=== PATIENT | female | born 1950 | race Caucasian/White ===

== ENCOUNTER 2023-09-25 08:53 | Inpatient (IN) ==
[2023-09-25] MEDS ORDERED: dilTIAZem HCl 5 MG/ML 5 ML VIAL IV STA ×2 (09:34→10:19)
[2023-09-25] MEDS ORDERED: SODIUM CHLORIDE 0.9% 1,000 ML IV STA (09:34)
--- NOTE | 2023-09-25 09:53 | Emergency Department Note ---
Impression & Plan Atrial flutter with rapid ventricular response ED Provider Note Diagnosis: Atrial flutter Disposition: Admission CHIEF COMPLAINT: Abnormal EKG outpatient HPI: Patient is a 72-year-old female presenting with EKG from outpatient with new a flutter. Patient states she has not felt any symptoms denies chest pain shortness of breath palpitations headache or lightheadedness. Patient was going to get an injection due to her sciatica and they found her heart rate to be elevated. Patient had an EKG performed which showed a flutter. Patient asymptomatic upon arrival in the emergency room. Patient's heart rate on presentation 130 to 150 bpm. PAST MEDICAL HISTORY: See Below PAST SURGICAL HISTORY: See Below SOCIAL HISTORY: See Below HOME MEDICATIONS: See Below ALLERGIES: See Below VITALS: See Below PHYSICAL EXAMINATION: GENERAL: Well appearing, well nourished, NAD, non-toxic. EYE EXAM: Normal conjunctiva. OROPHARYNX: Moist mucus membranes. Grossly normal dentition. NECK: Supple, LUNGS: Clear to auscultation. Normal chest wall mechanics. HEART: Tachycardia ABDOMEN: Abdomen soft, non-tender, normo-active bowel sounds, no masses, no rebound or guarding BACK: No CVA TTP. SKIN: No rashes and no bruising. UPPER EXTREMITIES: Upper extremities are grossly normal LOWER EXTREMITIES: Grossly normal, no edema. NEURO EXAM: A&O x3,, normal speech, moves all 4 extremities PSYCH: Cooperative MEDICAL DECISION MAKING: Reviewed external documents: H&P October 2018 for sleep study History obtained from: Patient ER Course: Patient is a 72-year-old female presenting with a flutter with elevated heart rate. Patient was going for an outpatient procedure for injection due to sciatica and found to have abnormal vital signs for the staff. An EKG was performed at their facility which showed a flutter with rapid rate. Patient asymptomatic. Patient denies any history of A-fib or a flutter previously. Patient denies any chest pain shortness of breath palpitations headache lightheadedness. Patient given Cardizem bolus x2 and then started on drip. Patient is heart rate controlled between 110 115 bpm. Patient mid to hospital service further treatment evaluation Labs (independently interpreted) are significant for: Troponin negative no electrolyte abnormalities Imaging results (independently interpreted): Chest x-ray clear EKG interpretation (independently interpreted): Atrial flutter, no ST segment elevation or depression normal intervals Medications given: Cardizem bolus x2, Cardizem drip Consultants: Hospitalist, discussed patient's new diagnosis of a flutter with RVR. Except patient further treatment and evaluation. Triage Nursing notes reviewed and agree them. Vital Signs: reviewed and remarkable for: no significant abnormalities critical care: 40 minutes this time does not include any time for procedures. Time includes reviewing prior notes, at bedside, reviewing current data. Past Med/Surg History Medical History Barretts esophagus Fibromyalgia HTN (hypertension) Dyslipidemia Mitral regurgitation Mitral valve prolapse Bileaflet CAD (coronary artery disease) Nonobstructive per cardiac cath 2015 Surgical History History of partial hysterectomy History of cholecystectomy Social History Smoking Status: Former smoker Preferred Language: Indonesian Feels Safe at Home: Yes Allergies Allergies Allergy/AdvReac Type Severity Reaction Status Date / Time erythromycin base Allergy Severe Gastrointestinal Unverified 09/25/23 11:12 Upset ezetimibe [From Zetia] Allergy Severe Leg Cramps Unverified 09/25/23 11:12 [id number] Reductase Allergy Severe Gastrointestinal Unverified 09/25/23 11:12 Inhibitor Upset Sulfa (Sulfonamide Allergy Severe Gastrointestinal Unverified 09/25/23 11:12 Antibiotics) Upset adhesive tape Allergy Unknown Unknown Unverified 09/25/23 11:12 omeprazole Allergy Unknown Unknown Unverified 09/25/23 11:12 orphenadrine Allergy Unknown Unconscious Unverified 09/25/23 11:12 gabapentin AdvReac Severe Vertigo/Diz Unverified 09/25/23 11:12 ziness NSAIDS (Non-Steroidal AdvReac Severe Rectal Unverified 09/25/23 11:12 Anti-Inflamma Bleeding Home Meds Home Medications Medication Instructions Recorded Confirmed acetaminophen 650 mg 650 mg PO Q12H 09/25/23 09/25/23 tablet,extended release albuterol sulfate 90 mcg/actuation 1 - 2 puff inhalation QID PRN 09/25/23 09/25/23 aerosol inhaler wheezing/SOB amitriptyline 25 mg tablet 50 mg PO HS 09/25/23 09/25/23 aspirin 81 mg tablet 81 mg PO QAM 09/25/23 09/25/23 fluticasone 250 mcg-salmeterol 50 1 inh inhalation BID PRN Shortness 09/25/23 09/25/23 mcg/dose blistr powdr for Of Breath inhalation furosemide 20 mg tablet 20 mg PO DAILY PRN Edema 09/25/23 09/25/23 levocetirizine 5 mg tablet (Xyzal) 5 mg PO HS 09/25/23 09/25/23 meclizine 25 mg tablet 25 mg PO TID PRN Dizziness Or 09/25/23 09/25/23 Vertigo metoprolol succinate 25 mg 25 mg PO QAM 09/25/23 09/25/23 tablet,extended release 24 hr rabeprazole 20 mg tablet,delayed 20 mg PO BID 09/25/23 09/25/23 release simethicone 80 mg chewable tablet 80 mg PO BID PRN Gastric Reflux 09/25/23 09/25/23 Results & Data (ED) Vital Signs Vital Signs - 24 hr 09/25/23 08:54 09/25/23 09:03 09/25/23 09:30 Temperature 36.7 C Temperature Source Temporal Artery Scan Pulse Rate 90 Pulse Rate [Apical] 154 H Pulse Rate from SpO2 Sensor Pulse Rhythm Pulse Rhythm [Apical] Irregular Pulse Strength [Apical] Normal Respiratory Rate 18 22 Respiratory Effort / Characteristics Non-Labored Spontaneous Non-Labored Spontaneous Respiratory Depth Normal Normal Respiratory Pattern Regular Regular Blood Pressure Blood Pressure [Left Arm] 154/107 H Blood Pressure Mean Blood Pressure Mean [Left Arm] 122 Blood Pressure Position [Left Arm] Sitting Pulse Oximetry 97 97 97 Oxygen Delivery Method Room Air Room Air Room Air Sepsis Recent Fever Within 48 Hours No Sepsis New/Unexplained Change in Mental Status No Sepsis Action Taken by Nursing No Action Required 09/25/23 09:34 09/25/23 09:34 09/25/23 09:45 Temperature Temperature Source Pulse Rate 154 H 155 H 148 H Pulse Rate [Apical] Pulse Rate from SpO2 Sensor 125 H 134 H Pulse Rhythm Irregular Pulse Rhythm [Apical] Pulse Strength [Apical] Respiratory Rate 22 17 22 Respiratory Effort / Characteristics Respiratory Depth Respiratory Pattern Blood Pressure Blood Pressure [Left Arm] Blood Pressure Mean Blood Pressure Mean [Left Arm] Blood Pressure Position [Left Arm] Pulse Oximetry 97 97 94 Oxygen Delivery Method Room Air Sepsis Recent Fever Within 48 Hours Sepsis New/Unexplained Change in Mental Status Sepsis Action Taken by Nursing 09/25/23 09:55 09/25/23 09:55 09/25/23 10:00 Temperature Temperature Source Pulse Rate 148 H 119 H Pulse Rate [Apical] Pulse Rate from SpO2 Sensor 134 H 133 H Pulse Rhythm Pulse Rhythm [Apical] Pulse Strength [Apical] Respiratory Rate 16 20 Respiratory Effort / Characteristics Respiratory Depth Respiratory Pattern Blood Pressure 140/95 Blood Pressure [Left Arm] Blood Pressure Mean 106 Blood Pressure Mean [Left Arm] Blood Pressure Position [Left Arm] Pulse Oximetry 93 94 Oxygen Delivery Method Sepsis Recent Fever Within 48 Hours Sepsis New/Unexplained Change in Mental Status Sepsis Action Taken by Nursing 09/25/23 10:01 09/25/23 10:01 09/25/23 10:15 Temperature Temperature Source Pulse Rate 139 H 153 H Pulse Rate [Apical] Pulse Rate from SpO2 Sensor 124 H 154 H Pulse Rhythm Pulse Rhythm [Apical] Pulse Strength [Apical] Respiratory Rate 20 18 Respiratory Effort / Characteristics Respiratory Depth Respiratory Pattern Blood Pressure 137/96 Blood Pressure [Left Arm] Blood Pressure Mean 111 Blood Pressure Mean [Left Arm] Blood Pressure Position [Left Arm] Pulse Oximetry 96 95 Oxygen Delivery Method Sepsis Recent Fever Within 48 Hours Sepsis New/Unexplained Change in Mental Status Sepsis Action Taken by Nursing 09/25/23 10:18 09/25/23 10:28 09/25/23 10:28 Temperature Temperature Source Pulse Rate 153 H Pulse Rate [Apical] Pulse Rate from SpO2 Sensor 144 H Pulse Rhythm Pulse Rhythm [Apical] Pulse Strength [Apical] Respiratory Rate 18 Respiratory Effort / Characteristics Respiratory Depth Respiratory Pattern Blood Pressure 127/88 Blood Pressure [Left Arm] Blood Pressure Mean 106 Blood Pressure Mean [Left Arm] Blood Pressure Position [Left Arm] Pulse Oximetry 92 Oxygen Delivery Method Sepsis Recent Fever Within 48 Hours Sepsis New/Unexplained Change in Mental Status Sepsis Action Taken by Nursing 09/25/23 10:30 09/25/23 10:31 09/25/23 10:31 Temperature Temperature Source Pulse Rate 150 H Pulse Rate [Apical] Pulse Rate from SpO2 Sensor 150 H Pulse Rhythm Pulse Rhythm [Apical] Pulse Strength [Apical] Respiratory Rate 16 Respiratory Effort / Characteristics Respiratory Depth Respiratory Pattern Blood Pressure 115/70 115/70 Blood Pressure [Left Arm] Blood Pressure Mean 98 98 Blood Pressure Mean [Left Arm] Blood Pressure Position [Left Arm] Pulse Oximetry 97 Oxygen Delivery Method Sepsis Recent Fever Within 48 Hours Sepsis New/Unexplained Change in Mental Status Sepsis Action Taken by Nursing 09/25/23 10:31 09/25/23 10:45 09/25/23 11:00 Temperature Temperature Source Pulse Rate 137 H 134 H Pulse Rate [Apical] 144 H Pulse Rate from SpO2 Sensor 149 H 123 H Pulse Rhythm Pulse Rhythm [Apical] Irregular Pulse Strength [Apical] Normal Respiratory Rate 21 16 18 Respiratory Effort / Characteristics Non-Labored Spontaneous Respiratory Depth Normal Respiratory Pattern Regular Blood Pressure Blood Pressure [Left Arm] Blood Pressure Mean Blood Pressure Mean [Left Arm] Blood Pressure Position [Left Arm] Pulse Oximetry 96 95 94 Oxygen Delivery Method Room Air Sepsis Recent Fever Within 48 Hours Sepsis New/Unexplained Change in Mental Status Sepsis Action Taken by Nursing 09/25/23 11:00 09/25/23 11:00 09/25/23 11:15 Temperature Temperature Source Pulse Rate 148 H 111 H Pulse Rate [Apical] Pulse Rate from SpO2 Sensor 133 H 126 H Pulse Rhythm Pulse Rhythm [Apical] Pulse Strength [Apical] Respiratory Rate 21 20 Respiratory Effort / Characteristics Respiratory Depth Respiratory Pattern Blood Pressure 132/83 Blood Pressure [Left Arm] Blood Pressure Mean 90 Blood Pressure Mean [Left Arm] Blood Pressure Position [Left Arm] Pulse Oximetry 95 96 Oxygen Delivery Method Sepsis Recent Fever Within 48 Hours Sepsis New/Unexplained Change in Mental Status Sepsis Action Taken by Nursing 09/25/23 11:30 09/25/23 11:30 09/25/23 11:45 Temperature Temperature Source Pulse Rate 112 H 121 H Pulse Rate [Apical] Pulse Rate from SpO2 Sensor 140 H 128 H Pulse Rhythm Pulse Rhythm [Apical] Pulse Strength [Apical] Respiratory Rate 17 18 Respiratory Effort / Characteristics Respiratory Depth Respiratory Pattern Blood Pressure 141/67 H Blood Pressure [Left Arm] Blood Pressure Mean 93 Blood Pressure Mean [Left Arm] Blood Pressure Position [Left Arm] Pulse Oximetry 90 95 Oxygen Delivery Method Sepsis Recent Fever Within 48 Hours Sepsis New/Unexplained Change in Mental Status Sepsis Action Taken by Nursing Laboratory Data 09/25/23 09:43 09/25/23 09:43 Lab Results 09/25/23 09/25/23 Range/Units 09:43 10:30 WBC 7.09 (4.8-10.8) K/ul RBC 4.14 L (4.20-5.40) M/uL Hgb 13.8 (12.0-16.0) g/dl Hct 40.1 (37.0-47.0) % MCV 96.9 (80.0-100.0) fL MCH 33.3 (25.0-34.0) pg MCHC 34.4 (32.0-36.0) g/dL RDW Std Deviation 44.6 (36.4-46.3) fL RDW Coeff of Nicolas 12.5 (11.5-14.5) % Plt Count 246 (130-400) K/uL MPV 8.9 L (9.4-12.4) fL Immature Gran % (Auto) 0.3 % Neut % (Auto) 62.8 % Lymph % (Auto) 25.1 % Hernando % (Auto) 10.2 % Eos % (Auto) 0.8 % Baso % (Auto) 0.8 % Neut # (Auto) 4.45 (1.40-6.50) K/uL Lymph # (Auto) 1.78 (1.20-3.40) K/uL Hernando # (Auto) 0.72 H (0.11-0.59) K/uL Eos # (Auto) 0.06 (0.00-0.50) K/uL Baso # (Auto) 0.06 (0.00-0.20) K/uL Immature Gran # (Auto) 0.02 (0.01-0.20) K/uL PT Cancelled 11.9 INR Cancelled 1.1 APTT Cancelled 24.1 PTT Ratio Cancelled 0.9 Sodium 138 (136-145) mmol/L Potassium 4.1 (3.5-5.1) mmol/L Chloride 104 (98-107) mmol/L Carbon Dioxide 23 (21-32) mmol/L Anion Gap 11 (3-11) BUN 17 (6-23) mg/dl Creatinine 1.00 (0.6-1.2) mg/dl Est Cr Clr Drug Dosing 47.4 ml/min Est GFR ( Amer) 65.6 ml/min Est GFR (Non-Af Amer) 56.6 ml/min BUN/Creatinine Ratio 17.0 (10-20) Glucose 157 H (70-99(Fasting)) mg/dl Calcium 9.5 (8.6-10.3) mg/dl Magnesium 1.8 (1.7-2.4) mg/dl Total Bilirubin 0.6 (0.2-1.0) mg/dl AST 13 (13-39) U/L ALT 12 (7-52) U/L Alkaline Phosphatase 84 (34-104) U/L Troponin I High Sens 5.4 (0-14) pg/ml Total Protein 6.8 (6.0-8.3) gm/dl Albumin 4.1 (3.4-5.0) gm/dl Globulin 2.7 (2.5-4.0) gm/dl Albumin/Globulin Ratio 1.5 (0.9-2) Lipase 11 (11-82) U/L TSH 1.366 (0.300-4.500) uIu/ml Administered Medications Diltiazem HCl 125 mg/ Dextrose 125 mls @ 5 mls/hr IV .Q24H [facility]; Protocol Stop: 10/25/23 10:29 Last Titration: 09/25/23 15:11 Dose: 10 mg/hr, 10 mls/hr Documented By: KIMBERLYN Co-signed By: RAHEL Admin: 09/25/23 11:00 Dose: 5 mg/hr, 5 mls/hr Documented By: KIMBERLYN Co-signed By: KENYATTA Heparin Sodium/Dextrose (Heparin Sodium/Dextrose) 25,000 units in 500 mls @ 21 mls/hr IV .[id number] [facility]; Protocol Stop: 10/25/23 13:14 Last Admin: 09/25/23 15:07 Dose: 1,050 units/hr, 21 mls/hr Documented By: KIMBERLYN Co-signed By: RAHEL Metoprolol Tartrate (Metoprolol Tartrate 25 Mg Tab) 25 mg PO Q6H KIMBERLY Stop: 10/25/23 13:59 Last Admin: 09/25/23 15:03 Dose: 25 mg Documented By: KIMBERLYN Discontinued Medications Diltiazem HCl (Diltiazem Hcl 5 Mg/Ml 5 Ml Vial) 15 mg IV NOW STA Stop: 09/25/23 09:35 Last Admin: 09/25/23 09:56 Dose: 15 mg Documented By: KIMBERLYN Co-signed By: YAKELIN Diltiazem HCl (Diltiazem Hcl 5 Mg/Ml 5 Ml Vial) 15 mg IV NOW STA Stop: 09/25/23 10:20 Last Admin: 09/25/23 10:28 Dose: 15 mg Documented By: KIMBERLYN Co-signed By: LARA Heparin Sodium (Porcine) (Heparin Sod (Porcine) 1000 Unit/Ml) 5,000 units IV NOW ONE Stop: 09/25/23 14:15 Last Admin: 09/25/23 15:07 Dose: 5,000 units Documented By: KIMBERLYN Co-signed By: RAHEL Heparin Sodium/Dextrose (Heparin Iv Adult Wt-Based Standard With Bolus Protocol) 1 each IV NOW STA; Protocol Stop: 09/25/23 12:53 Last Admin: 09/25/23 15:10 Dose: 1 each Documented By: KIMBERLYN Sodium Chloride (Nss) 1,000 mls @ 999 mls/hr IV .Q1H1M STA Stop: 09/25/23 10:34 Last Infusion: 09/25/23 14:55 Dose: Infused Documented By: Admin: 09/25/23 09:56 Dose: 999 mls/hr Documented By: KIMBERLYN Miscellaneous (Stat Iv Infusion Titration Per Protocol) 1 each N/A NOW STA Stop: 09/25/23 10:20 Last Admin: 09/25/23 15:10 Dose: Not Given Documented By: KIMBERLYN Imaging Data Radiologist's Impression: Chest X-Ray 09/25/23 09:34 XR chest 1V portable CLINICAL HISTORY: Chest pain, nonspecific TECHNIQUE: Single frontal radiograph of the chest was obtained. Comparison: None available at the time of this dictation. FINDINGS: No lines and tubes are seen. The cardiomediastinal silhouette is normal. The lungs are clear. No evidence of pleural effusion or pneumothorax. IMPRESSION: No acute chest disease. ACT 112: Negative or not required by law. Electronically signed by: Allen Pitts M.D. 09/25/2023 10:23 AM Discharge Plan Visit Data Chief Complaint: Cardiac Assessment Stated Complaint: REF BY , CARDIAC ASSESSMENT ED Provider: Miki Ramírez Discharge Problem: Atrial flutter with rapid ventricular response Patient Disposition: Admitted As Inpatient Discharge Instructions Interventions: ED Discharge Assessment Last Done: 09/25/23 14:58
[2023-09-25 10:05] LABS: Basophils # (auto) 0.06 K/uL (0.00-0.20); Basophils % (auto) 0.8 %; Eosinophils # (auto) 0.06 K/uL (0.00-0.50); Eosinophils % (auto) 0.8 %; Hematocrit (blood only) 40.1 % (37.0-47.0); Hemoglobin 13.8 g/dl (12.0-16.0); Immature Granulocytes # (auto) 0.02 K/uL (0.01-0.20); Immature Granulocytes % (auto) 0.3 %; Lymphocytes # (auto) 1.78 K/uL (1.20-3.40); Lymphocytes % (auto) 25.1 %; Mean Corpuscular Hemoglobin 33.3 pg (25.0-34.0); Mean Corpuscular Hgb Conc 34.4 g/dL (32.0-36.0); Mean Corpuscular Volume 96.9 fL (80.0-100.0); Mean Platelet Volume 8.9 fL (9.4-12.4); Monocytes # (auto) 0.72 K/uL (0.11-0.59); Monocytes % (auto) 10.2 %; Neutrophils # (auto) 4.45 K/uL (1.40-6.50); Neutrophils % (auto) 62.8 %; Platelet Count 246 K/uL (130-400); RDW Coefficient of Variation 12.5 % (11.5-14.5); RDW Standard Deviation 44.6 fL (36.4-46.3); Red Blood Count 4.14 M/uL (4.20-5.40); White Blood Count 7.09 K/ul (4.8-10.8)
[2023-09-25] MEDS ORDERED: STAT IV Infusion **Titration per Protocol STA (10:19)
[2023-09-25 10:23] LABS: Albumin Globulin Ratio 1.5 (0.9-2); Albumin Level 4.1 gm/dl (3.4-5.0); Bilirubin,Total 0.6 mg/dl (0.2-1.0); Calcium 9.5 mg/dl (8.6-10.3); Creatinine Clr Calc Pharmacy 47.4 ml/min; Est GFR (African American) 65.6 ml/min; Est GFR (Non-African American) 56.6 ml/min; Globulin 2.7 gm/dl (2.5-4.0); Potassium 4.1 mmol/L (3.5-5.1); Total Protein 6.8 gm/dl (6.0-8.3)
--- NOTE | 2023-09-25 10:25 | XRay Report ---
XR chest 1V portable CLINICAL HISTORY: Chest pain, nonspecific TECHNIQUE: Single frontal radiograph of the chest was obtained. Comparison: None available at the time of this dictation. FINDINGS: No lines and tubes are seen. The cardiomediastinal silhouette is normal. The lungs are clear. No evid ence of pleural effusion or pneumothorax. IMPRESSION: No acute chest disease. ACT 112: Negative or not required by law. Electronically signed by: Allen Pitts M.D. 09/25/2023 10:23 AM
[2023-09-25 10:28] LABS: Troponin I High Sensitivity 5.4 pg/ml (0-14)
[2023-09-25] MEDS: dilTIAZem HCL 125 MG in DEXTROSE 5% 100 ML IV SCH (11:00)
[2023-09-25 11:22] LABS: INR 1.1 (0.9-1.1); Partial Thromboplastin Ratio 0.9; Partial Thromboplastin Time 24.1 Seconds (21.0-31.0); Prothrombin Time 11.9 Seconds (9.0-12.0)
[2023-09-25] MEDS ORDERED: Heparin IV Adult Wt-Based Standard WITH Bolus Protocol IV STA (12:52)
[2023-09-25] MEDS ORDERED: Heparin IV Adult Wt-Based Standard WITH Bolus Protocol IV SCH (13:30)
--- NOTE | 2023-09-25 13:59 | History & Physical Report ---
Date of Service September 25, 2023 Assessment & Plan (1) Atrial flutter with rapid ventricular response: (2) Mitral valve prolapse: (3) Mitral regurgitation: Plan: Admit to telemetry Patient presenting from [facility] for evaluation of tachycard ia. Patient was scheduled for L5-S1 epidural steroid injection today. Upon arrival to the ER, patient found to be in atrial flutter with RVR --no prior history of S/p diltiazem 15 mg IV bolus x 2 and started on drip in ED Hold home metoprolol succinate in favor of metoprolol tartrate 25 mg PO q6h for titration [id number] score 4 -- will start IV heparin with likely transition to oral anticoagulation K+ 4.1, check Mg+ and TSH. No signs of infection or other precipitating factors. Update echo Cardiology consult (4) CAD (coronary artery disease): Plan: History of nonobstructive CAD per cardiac cath 2016 Continue ASA and beta-bipin. Chart history of statin intolerance. (5) HTN (hypertension): Plan: Chronic, stable Metoprolol changes as above (6) Barretts esophagus: Plan: Continue PPI DVT PROPHYLAXIS On IV heparin Patient seen in collaboration with Dr. Summers. I spent a total of 75 minutes coordinating, documenting, and providing care for this patient excluding time spent in the performance of separately billed services. This included personally reviewing all current laboratories and imaging studies, medication reconciliation, outpatient chart review, and discussion with specialists. History of Present Illness Chief Complaint: Referred for elevated heart rate Primary Care Provider: Miladis Hightower MD 72-year-old female with PMH dyslipidemia, asthma, allergic rhinitis, HTN, mitral valve prolapse, IBS, Lundy's esophagus, GERD, fibromyalgia, and other problems listed below who presents to the ED from [facility] for evaluation of elevated heart rate. History obtained from the patient and review of outpatient PCP and cardiology records. Patient scheduled for L5-S1 epidural steroid injection. Upon presentation, patient was found to be significant tachycardic and was referred to the ED for further evaluation. Patient is asymptomatic. She denies chest pain, palpitations, shortness of breath. Reports ongoing low back pain with radiation into the left leg for the past few months. No lightheadedness, dizziness, diaphoresis, syncopal events. Reports chronic lower extremity edema for which she utilizes Lasix on a as needed basis. Typically takes Lasix only once every few months. Last dose was a few days ago. Lower extremity edema is at baseline. Denies orthopnea. No other recent illnesses, fevers, chills. She denies abdominal pain, nausea, vomiting, diarrhea. No urinary symptoms. In the ED, patient was found to be in atrial flutter with RVR. Patient received diltiazem 15 mg IV bolus x 2 and was placed on a drip. Patient was also given IVF. Labs and CXR unremarkable. Allergies Allergy/AdvReac Type Severity Reaction Status Date / Time erythromycin base Allergy Severe Gastrointestinal Unverified 09/25/23 11:12 Upset ezetimibe [From Zetia] Allergy Severe Leg Cramps Unverified 09/25/23 11:12 [id number] Reductase Allergy Severe Gastrointestinal Unverified 09/25/23 11:12 Inhibitor Upset Sulfa (Sulfonamide Allergy Severe Gastrointestinal Unverified 09/25/23 11:12 Antibiotics) Upset adhesive tape Allergy Unknown Unknown Unverified 09/25/23 11:12 omeprazole Allergy Unknown Unknown Unverified 09/25/23 11:12 orphenadrine Allergy Unknown Unconscious Unverified 09/25/23 11:12 gabapentin AdvReac Severe Vertigo/Diz Unverified 09/25/23 11:12 ziness NSAIDS (Non-Steroidal AdvReac Severe Rectal Unverified 09/25/23 11:12 Anti-Inflamma Bleeding Home Medications Medication Instructions Recorded Confirmed Type acetaminophen 650 mg 650 mg PO Q12H 09/25/23 09/25/23 History tablet,extended release albuterol sulfate 90 mcg/actuation 1 - 2 puff inhalation QID PRN 09/25/23 09/25/23 History aerosol inhaler wheezing/SOB amitriptyline 25 mg tablet 50 mg PO HS 09/25/23 09/25/23 History aspirin 81 mg tablet 81 mg PO QAM 09/25/23 09/25/23 History fluticasone 250 mcg-salmeterol 50 1 inh inhalation BID PRN Shortness 09/25/23 09/25/23 History mcg/dose blistr powdr for Of Breath inhalation furosemide 20 mg tablet 20 mg PO DAILY PRN Edema 09/25/23 09/25/23 History levocetirizine 5 mg tablet (Xyzal) 5 mg PO HS 09/25/23 09/25/23 History meclizine 25 mg tablet 25 mg PO TID PRN Dizziness Or 09/25/23 09/25/23 History Vertigo metoprolol succinate 25 mg 25 mg PO QAM 09/25/23 09/25/23 History tablet,extended release 24 hr rabeprazole 20 mg tablet,delayed 20 mg PO BID 09/25/23 09/25/23 History release simethicone 80 mg chewable tablet 80 mg PO BID PRN Gastric Reflux 09/25/23 09/25/23 History Past Med/Surg History Medical History Barretts esophagus Fibromyalgia HTN (hypertension) Dyslipidemia Mitral regurgitation Mitral valve prolapse Bileaflet CAD (coronary artery disease) Nonobstructive per cardiac cath 2016 Surgical History History of partial hysterectomy History of cholecystectomy Social History Smoking Status: Former smoker Preferred Language: Urdu Feels Safe at Home: Yes Physical Exam Constitutional: WD/WN, vitals as above no acute distress Eyes: PERRL, conjunctivae normal, anicteric sclerae ENMT: external ear and nose normal, oropharynx normal Respiratory: normal respiratory effort, lungs clear to auscultation Cardiovascular: Rate/Rhythm: regular rate and + irregularly irregular Vessels: normal peripheral pulses Extremities: + edema (Trace edema BLE) Gastrointestinal (Abdomen): normal bowel sounds, soft, nontender, no hepatosplenomegaly Musculoskeletal: no cyanosis or clubbing, extremities motor strength 5/5 Skin: no rashes, warm and dry Neurologic: PERRL, EOMI, accommodation nl, no face palsy, no dysarthria Psychiatric: A+Ox3, euthymic affect Results & Data Results & Data Vital Signs (Past 12 Hours) Vital Signs Temp Pulse Pulse Resp BP BP Pulse Ox 09/25/23 13:00 142 H 20 140/88 94 09/25/23 11:45 121 H 18 95 09/25/23 11:30 112 H 17 90 09/25/23 11:30 141/67 H 09/25/23 11:15 111 H 20 96 09/25/23 11:00 132/83 09/25/23 11:00 148 H 21 95 09/25/23 11:00 144 H 18 94 09/25/23 10:45 134 H 16 95 09/25/23 10:31 137 H 21 96 09/25/23 10:31 115/70 09/25/23 10:31 115/70 09/25/23 10:30 150 H 16 97 09/25/23 10:28 127/88 09/25/23 10:28 18 92 09/25/23 10:18 153 H 09/25/23 10:15 153 H 18 95 09/25/23 10:01 139 H 20 96 09/25/23 10:01 137/96 09/25/23 10:00 119 H 20 94 09/25/23 09:55 140/95 09/25/23 09:55 148 H 16 93 09/25/23 09:45 148 H 22 94 09/25/23 09:34 155 H 17 97 09/25/23 09:34 154 H 22 97 09/25/23 09:30 154 H 22 154/107 H 97 09/25/23 09:03 36.7 C 90 18 97 09/25/23 08:54 97 O2 Del Method 09/25/23 13:00 Room Air 09/25/23 11:45 09/25/23 11:30 09/25/23 11:30 09/25/23 11:15 09/25/23 11:00 09/25/23 11:00 09/25/23 11:00 Room Air 09/25/23 10:45 09/25/23 10:31 09/25/23 10:31 09/25/23 10:31 09/25/23 10:30 09/25/23 10:28 09/25/23 10:28 09/25/23 10:18 09/25/23 10:15 09/25/23 10:01 09/25/23 10:01 09/25/23 10:00 09/25/23 09:55 09/25/23 09:55 09/25/23 09:45 09/25/23 09:34 09/25/23 09:34 Room Air 09/25/23 09:30 Room Air 09/25/23 09:03 Room Air 09/25/23 08:54 Room Air Laboratory Results Short CBC 09/25/23 Range/Units 09:43 WBC 7.09 (4.8-10.8) K/ul Hgb 13.8 (12.0-16.0) g/dl Hct 40.1 (37.0-47.0) % Plt Count 246 (130-400) K/uL BMP 09/25/23 09:43 Sodium 138 Potassium 4.1 Chloride 104 Carbon Dioxide 23 BUN 17 Creatinine 1.00 Glucose 157 H Calcium 9.5 Liver Function 09/25/23 Range/Units 09:43 Total Bilirubin 0.6 (0.2-1.0) mg/dl AST 13 (13-39) U/L ALT 12 (7-52) U/L Alkaline Phosphatase 84 (34-104) U/L Albumin 4.1 (3.4-5.0) gm/dl Diagnostic Findings Short CBC 09/25/23 Range/Units 09:43 WBC 7.09 (4.8-10.8) K/ul Hgb 13.8 (12.0-16.0) g/dl Hct 40.1 (37.0-47.0) % Plt Count 246 (130-400) K/uL [facility] 09/25/23 09:43 Sodium 138 Potassium 4.1 Chloride 104 Carbon Dioxide 23 BUN 17 Creatinine 1.00 Glucose 157 H Calcium 9.5 Liver Function 09/25/23 Range/Units 09:43 Total Bilirubin 0.6 (0.2-1.0) mg/dl AST 13 (13-39) U/L ALT 12 (7-52) U/L Alkaline Phosphatase 84 (34-104) U/L Albumin 4.1 (3.4-5.0) gm/dl Code Status & VTE Plan VTE Prophylaxis Plan VTE Prophylaxis will be ordered: No Supervising Physician Co-Signing Physician Notes I have seen and discussed the case with the collaborating [employer]. I agree with the above H&P. I have reviewed and confirmed the patients medical history, the findings on physical examination, and the patients diagnosis and treatment plan with LOVE [employer] M[employer]ER and agree with the information documented. Madeleine winston, Ms. Breen is a 72 yearold woman with cad and mitral regurg who was advised to present to ED after incidentally finding heart rates in 150s upon visit for lumbar spine injection. Upon arrival, patient found to be in a flutter with RVR and placed on diltiazem drip. Patient asymptomatic and reports being in usual state of health, no chest pain/palpitations. Exam notable for irregular and tachycardic examination, but otherwise no edema, crackles, or other remarkable exam findings Plan #Atrial Flutter with RVR -Transition to 12.5mg metoprolol tartrate q6h, uptitrate as necessary -Heparin drip -Cardiology consult, npo midnight Rest of plan as above -
[2023-09-25] MEDS ORDERED: HEPARIN SOD (PORCINE) 1000 UNIT/ML IV ONE (14:14)
[2023-09-25 14:52] LABS: Magnesium 1.8 mg/dl (1.7-2.4)
[2023-09-25] MEDS ORDERED: MECLIZINE HCL 25 MG TAB PO PRN (14:59)
[2023-09-25] MEDS ORDERED: ACETAMINOPHEN 325 MG TAB PO PRN (14:59)
[2023-09-25] MEDS ORDERED: SIMETHICONE 80 MG CHEW PO PRN (14:59)
[2023-09-25] MEDS: METOPROLOL TARTRATE 25 MG TAB PO SCH ×2 (15:03→19:50)
[2023-09-25 15:05] LABS: Thyroid Stimulating Hormone 1.366 uIu/ml (0.300-4.500)
[2023-09-25] MEDS: HEPARIN SODIUM/DEXTROSE 25,000 UNITS/500 ML BAG IV SCH (15:07)
--- NOTE | 2023-09-25 15:25 | Electrocardiogram Report ---
Test Reason : Blood Pressure : / mmHG Vent. Rate : 147 BPM Atrial Rate : 163 BPM P-R Int : 082 ms QRS Dur : 056 ms QT Int : 186 ms P-R-T Axes : 073 -07 -45 degrees QTc Int : 291 ms Atrial fibrillation Low voltage QRS Nonspecific ST and T wave abnormality Abnormal ECG No previous ECGs available Confirmed by Phill Finch ([id number]) on 09/25/2023 3:25:18 PM Referred By: REFERRED SELF Confirmed By:Phill Finch
--- NOTE | 2023-09-25 15:38 | Cardiology Progress Note ---
Date of Service September 25, 2023 Assessment & Plan Admission and Anticipated Discharge Date Admission Date: September 25, 2023 Supervising Physician Co-Signing Physician Notes Attending Staff: Pt seen with [facility] staff Concur with observations and plans 72 yo woman presenting with asymptomatic atrial flutter with RVR * Patient presented for Lumbar epidural steroid injection. * Patient was noted to be tachycardic * EKG - revealed aflutter - ventricular rate of 150 BPM - aflutter pattern * Referred to ED for potential admission * In ED - Diltiazem 15 mg IV x 2 - started on infusion - 10 mg/hr * Stopped Toprol * Started Lopressor 25 mg po Q6 * Chads Vasc 4 * Heparin Started Hx: * Nonobstructive CAD ([place] - 12/2014) * MVP * ECHO (02/2022) - LVEF 60%, MR - MODERATE * Nuclear Stress Test (02/2022) - no evidence of ischemia * HTN * Hyperlipidemia * Pulmonary HTN Plans: * Check TT ECHO * Check TSH * Consider starting Eliquis 5 mg po BID * Consider Lopressor 5 mg IV x 1 * Continue Lopressor 25 mg po Q 6 hrs * Escalate Beta Mahin dose to maintain HR between 80-100 BPM at rest * Would choose Beta blockers or diltiazem - would prefer beta blockers * Lasix 40 IV x 1 * Goal is -1/5 liters * Kdur 40 meq po x 1 * K+ goal 4.5-5 * Mag goal >2 * 4 gm Magnesium Sulfate * EP consultation for potential ablation as an outpt * NPO past MN in the event that we proceed with RICARDO cardioversion Aram Kim Subjective Events overnight Subjective: Review of Systems Review of Systems: All systems reviewed & are unremarkable except as noted in HPI & below Physical Exam Physical Exam: Overweight Glasses JVP 15 cmH20 S1S2 tachy CTA B with occasional crackles 1+ LE edema Warm and perfusing Results & Data Vital Signs (Past 12 Hours) Vital Signs Temp Pulse Pulse Resp BP BP Pulse Ox 09/25/23 15:15 132 H 16 96 09/25/23 15:07 133 H 21 95 09/25/23 15:00 134 H 14 144/90 H 92 09/25/23 15:00 147 H 19 144/90 H 97 09/25/23 15:00 140 H 17 97 09/25/23 14:45 131 H 21 95 09/25/23 14:30 137 H 11 L 93 09/25/23 14:22 135 H 09/25/23 14:15 116 H 9 L 93 09/25/23 14:00 117 H 17 94 09/25/23 13:45 125 H 18 95 09/25/23 13:30 129 H 18 113/94 95 09/25/23 13:15 130 H 20 92 09/25/23 13:00 137 H 25 H 140/88 95 09/25/23 13:00 142 H 20 140/88 94 09/25/23 12:45 138 H 15 96 09/25/23 12:30 145 H 28 H 135/103 H 96 09/25/23 12:26 143 H 22 156/126 H 95 09/25/23 12:15 130 H 12 93 09/25/23 12:00 122 H 16 107/54 L 92 09/25/23 11:45 121 H 18 95 09/25/23 11:30 112 H 17 90 09/25/23 11:30 141/67 H 09/25/23 11:15 111 H 20 96 09/25/23 11:00 132/83 09/25/23 11:00 148 H 21 95 09/25/23 11:00 144 H 18 94 09/25/23 10:45 134 H 16 95 09/25/23 10:31 137 H 21 96 09/25/23 10:31 115/70 09/25/23 10:31 115/70 09/25/23 10:30 150 H 16 97 09/25/23 10:28 127/88 09/25/23 10:28 18 92 09/25/23 10:18 153 H 09/25/23 10:15 153 H 18 95 09/25/23 10:01 139 H 20 96 09/25/23 10:01 137/96 09/25/23 10:00 119 H 20 94 09/25/23 09:55 140/95 09/25/23 09:55 148 H 16 93 09/25/23 09:45 148 H 22 94 09/25/23 09:34 155 H 17 97 09/25/23 09:34 154 H 22 97 09/25/23 09:30 154 H 22 154/107 H 97 09/25/23 09:03 36.7 C 90 18 97 09/25/23 08:54 97 O2 Del Method 09/25/23 15:15 09/25/23 15:07 09/25/23 15:00 Room Air 09/25/23 15:00 Room Air 09/25/23 15:00 Room Air 09/25/23 14:45 09/25/23 14:30 Room Air 09/25/23 14:22 09/25/23 14:15 09/25/23 14:00 09/25/23 13:45 09/25/23 13:30 Room Air 09/25/23 13:15 09/25/23 13:00 Room Air 09/25/23 13:00 Room Air 09/25/23 12:45 09/25/23 12:30 09/25/23 12:26 09/25/23 12:15 09/25/23 12:00 Room Air 09/25/23 11:45 09/25/23 11:30 09/25/23 11:30 09/25/23 11:15 09/25/23 11:00 09/25/23 11:00 09/25/23 11:00 Room Air 09/25/23 10:45 09/25/23 10:31 09/25/23 10:31 09/25/23 10:31 09/25/23 10:30 09/25/23 10:28 09/25/23 10:28 09/25/23 10:18 09/25/23 10:15 09/25/23 10:01 09/25/23 10:01 09/25/23 10:00 09/25/23 09:55 09/25/23 09:55 09/25/23 09:45 09/25/23 09:34 09/25/23 09:34 Room Air 09/25/23 09:30 Room Air 09/25/23 09:03 Room Air 09/25/23 08:54 Room Air Laboratory Results Cardiac Enzymes 09/25/23 Range/Units 09:43 AST 13 (13-39) U/L Troponin I High Sens 5.4 (0-14) pg/ml Coagulation 09/25/23 09/25/23 Range/Units 09:43 10:30 PT Cancelled 11.9 APTT Cancelled 24.1 CBC 09/25/23 Range/Units 09:43 WBC 7.09 (4.8-10.8) K/ul RBC 4.14 L (4.20-5.40) M/uL Hgb 13.8 (12.0-16.0) g/dl Hct 40.1 (37.0-47.0) % Plt Count 246 (130-400) K/uL Neut # (Auto) 4.45 (1.40-6.50) K/uL Lymph # (Auto) 1.78 (1.20-3.40) K/uL [place] # (Auto) 0.72 H (0.11-0.59) K/uL Eos # (Auto) 0.06 (0.00-0.50) K/uL Baso # (Auto) 0.06 (0.00-0.20) K/uL Comprehensive Metabolic Panel 09/25/23 Range/Units 09:43 Sodium 138 (136-145) mmol/L Potassium 4.1 (3.5-5.1) mmol/L Chloride 104 (98-107) mmol/L Carbon Dioxide 23 (21-32) mmol/L BUN 17 (6-23) mg/dl Creatinine 1.00 (0.6-1.2) mg/dl Glucose 157 H (70-99(Fasting)) mg/dl Calcium 9.5 (8.6-10.3) mg/dl AST 13 (13-39) U/L ALT 12 (7-52) U/L Alkaline Phosphatase 84 (34-104) U/L Total Protein 6.8 (6.0-8.3) gm/dl Albumin 4.1 (3.4-5.0) gm/dl Intake and Output 09/25/23 09/25/23 09/25/23 06:59 14:59 22:59 Intake Total 1000 / 1020.917 20.917 / 1020.917 Balance 1000 / 1020.917 20.917 / 1020.917 Intake: IV 1000 / 1020.917 20.917 / 1020.917 Sodium Chloride 0.9% 1,000 ml @ 1000 / 1000 999 mls/hr IV .Q1H1M [facility] Rx#: [id number] dilTIAZem HCL 125 mg In 20.917 / 20.917 Dextrose 5% 100 ml @ 5 MG/HR 5 mls/hr IV .Q24H [facility] Rx#: [id number] Other: Weight 70.2 kg Weight Measurement Method Chair Scale Patient Weight 09/26/23 06:59 Weight 70.2 kg Medications Administered Current Inpatient Medications Acetaminophen (Acetaminophen 325 Mg Tab) 650 mg PO Q4H PRN PRN Reason: Pain or Fever Stop: 10/25/23 14:58 Amitriptyline HCl (Amitriptyline Hcl 50 Mg Tab) 50 mg PO HS [facility] Stop: 10/25/23 20:59 Aspirin (Aspirin 81 Mg Chew) 81 mg PO QAM [facility] Stop: 10/26/23 08:59 Diltiazem HCl 125 mg/ Dextrose 125 mls @ 5 mls/hr IV .Q24H [facility]; Protocol Stop: 10/25/23 10:29 Last Titration: 09/25/23 15:11 Dose: 10 mg/hr, 10 mls/hr Heparin Sodium/Dextrose (Heparin Sodium/Dextrose) 25,000 units in 500 mls @ 21 mls/hr IV .[id number] [facility]; Protocol Stop: 10/25/23 13:14 Last Admin: 09/25/23 15:07 Dose: 1,050 units/hr, 21 mls/hr Meclizine HCl (Meclizine Hcl 25 Mg Tab) 25 mg PO TID PRN PRN Reason: Dizziness Or Vertigo Stop: 10/25/23 14:58 Metoprolol Tartrate (Metoprolol Tartrate 25 Mg Tab) 25 mg PO Q6H [facility] Stop: 10/25/23 13:59 Last Admin: 09/25/23 15:03 Dose: 25 mg Non-Formulary Medication (Levocetirizine [Xyzal]) 5 mg PO HS [facility] Stop: 10/25/23 20:59 Non-Formulary Medication (Rabeprazole) 20 mg PO BID [facility] Stop: 10/25/23 20:59 Simethicone (Simethicone 80 Mg Chew) 80 mg PO BID PRN PRN Reason: Gastric Reflux Stop: 10/25/23 14:58
[2023-09-25] MEDS ORDERED: POTASSIUM CHLORIDE CRTAB 20 MEQ TABCR PO STA (15:44)
[2023-09-25] MEDS ORDERED: FUROSEMIDE 40 MG/4 ML VIAL IV ONE (16:07)
[2023-09-25] MEDS ORDERED: METOPROLOL TARTRATE 1 MG/ML VIAL IV ONE (16:08)
[2023-09-25] MEDS: MAGNESIUM SULFATE / D5W 1 GM/100 ML BAG IV SCH ×4 (16:58→22:19)
[2023-09-25] MEDS: CETIRIZINE HCL 10 MG TABLET PO SCH (19:50)
[2023-09-25] MEDS: AMITRIPTYLINE HCL 50 MG TAB PO SCH (19:50)
[2023-09-25] MEDS: PANTOprazole 40 MG TAB PO SCH (19:50)
[2023-09-25 22:13] LABS: Partial Thromboplastin Ratio 4.5
[2023-09-25 22:17] LABS: Partial Thromboplastin Time 127.2 Seconds (21.0-31.0)
[2023-09-26] MEDS: dilTIAZem HCL 125 MG in DEXTROSE 5% 100 ML IV SCH ×3 (00:45→17:20)
[2023-09-26] MEDS: METOPROLOL TARTRATE 25 MG TAB PO SCH ×4 (03:15→20:13)
[2023-09-26 03:38] LABS: Troponin I High Sensitivity 7.1 pg/ml (0-14)
[2023-09-26 07:05] LABS: Partial Thromboplastin Ratio 2.3
[2023-09-26 07:07] LABS: Partial Thromboplastin Time 64.9 Seconds (21.0-31.0)
[2023-09-26] MEDS: ASPIRIN 81 MG CHEW PO SCH (08:41)
[2023-09-26] MEDS: PANTOprazole 40 MG TAB PO SCH ×2 (08:41→21:04)
--- NOTE | 2023-09-26 08:48 | Electrocardiogram Report ---
Test Reason : Blood Pressure : / mmHG Vent. Rate : 079 BPM Atrial Rate : 288 BPM P-R Int : 000 ms QRS Dur : 068 ms QT Int : 388 ms P-R-T Axes : 205 052 018 degrees QTc Int : 444 ms Atrial flutter with variable A-V block Nonspecific T wave abnormality Abnormal ECG When compared with ECG of 25-SEP-2023 09:15, Atrial flutter has replaced Atrial fibrillation Vent. rate has decreased BY 68 BPM Confirmed by Phill Finch ([id number]) on 09/26/2023 8:47:41 AM Referred By: REFERRED SELF Confirmed By:Phill Finch
[2023-09-26 09:02] LABS: BUN Creatinine Ratio 9.8 (10-20); Calcium 9.5 mg/dl (8.6-10.3); Creatinine Clr Calc Pharmacy 50.9 ml/min; Est GFR (African American) 72.6 ml/min; Est GFR (Non-African American) 62.6 ml/min; Magnesium 2.7 mg/dl (1.7-2.4); Potassium 3.9 mmol/L (3.5-5.1)
--- NOTE | 2023-09-26 11:15 | Cardiology Progress Note ---
Date of Service September 26, 2023 Assessment & Plan (1) Atrial flutter with rapid ventricular response: (2) HTN (hypertension): (3) Dyslipidemia: (4) Mitral regurgitation: (5) Mitral valve prolapse: (6) CAD (coronary artery disease): Plan Risks, benefits, alternatives to transesophageal echo guided direct-current cardioversion discussed. Patient agreeable to proceed. Continue IV heparin, diltiazem, and oral metoprolol. Anesthesia consultation ordered. Preliminary review of bedside echocardiogram demonstrates reveals mitral valve prolapse with moderate mitral regurgitation, preserved LV systolic function, and moderate left atrial enlargement. Addendum: Transesophageal echocardiogram completed. The left atrial appendage was poorly visualized, therefore, cardioversion was not performed. Recommend reduce diltiazem infusion to 5 mg/h. Continue to wean off IV infusion as tolerated. Continue metoprolol tartrate 25 mg every 6 hours. Consider titration to 50 mg 3 times daily as blood pressure allows. Transition IV heparin to p.o. Eliquis this evening. Admission and Anticipated Discharge Date Admission Date: September 25, 2023 Subjective Patient seen examined the bedside. Feeling well this morning. Admitted with asymptomatic rapid atrial flutter. Currently treated with oral metoprolol, intravenous diltiazem infusion at 10 mg/h, and IV heparin. Patient denies chest discomfort or unusual shortness of breath. Review of Systems Review of Systems: All systems reviewed & are unremarkable except as noted in Subjective Physical Exam Constitutional: well nourished; no acute distress Respiratory: no respiratory distress, no labored breathing and no retractions Auscultation: no crackles, no rales, no rhonchi and no wheezes Cardiovascular: Rate/Rhythm: regular rate and regular rhythm Heart Sounds: normal S1 and normal S2 Vessels: no JVD, no carotid bruit and + radial pulses abnormal Extremities: no edema Gastrointestinal (Abdomen): Inspection/Auscultation: normal bowel sounds; abdomen not distended Percussion/Palpation: abdomen soft; abdomen nontender, no guarding and abdomen not rigid Neurologic: CN's II-XI intact bilaterally and moves all extremities; no focal motor deficits Results & Data Vital Signs (Past 12 Hours) Vital Signs Temp Pulse Pulse Resp BP Pulse Ox O2 Del Method 09/26/23 08:44 119/75 09/26/23 08:08 36.8 C 92 H 20 97/61 L 96 Room Air 09/26/23 07:53 76 09/26/23 03:36 36.5 C 108 H 20 106/59 L 93 Room Air 09/25/23 23:14 36.6 C 71 15 96/62 L 94 Room Air Laboratory Results Cardiac Enzymes 09/25/23 09/25/23 09/26/23 Range/Units 15:23 21:03 02:59 Troponin I High Sens 6.1 8.0 7.1 (0-14) pg/ml Coagulation 09/25/23 09/25/23 09/26/23 Range/Units 10:30 21:03 06:08 PT 11.9 (9.0-12.0) Seconds APTT 24.1 127.2 H* 64.9 H* (21.0-31.0) Seconds Comprehensive Metabolic Panel 09/26/23 Range/Units 02:59 Sodium 138 (136-145) mmol/L Potassium 3.9 (3.5-5.1) mmol/L Chloride 103 (98-107) mmol/L Carbon Dioxide 24 (21-32) mmol/L BUN 9 (6-23) mg/dl Creatinine 0.92 (0.6-1.2) mg/dl Glucose 132 H (70-99(Fasting)) mg/dl Calcium 9.5 (8.6-10.3) mg/dl Intake and Output 09/25/23 09/26/23 09/26/23 22:59 06:59 14:59 Intake Total 465.450 / 1633.617 168.167 / 1633.617 Output Total 651 / 2051 1400 / 2051 Balance -185.550 / -417.383 -1231.833 / -417.383 Intake: IV 465.450 / 1633.617 168.167 / 1633.617 Heparin Sodium/Dextrose 25,000 151.2 / 151.2 0 / 151.2 units In 500 ml @ 800 UNITS/HR 16 mls/hr IV .Q24H [facility] Rx#: [id number] Magnesium Sulfate / D5w 1 gm In 253.333 / 353.333 100 / 353.333 100 ml @ 50 mls/hr IV Q2H [facility] Rx#:[id number] dilTIAZem HCL 125 mg In 60.917 / 129.084 68.167 / 129.084 Dextrose 5% 100 ml @ 5 MG/HR 5 mls/hr IV .Q24H [facility] Rx#: [id number] Output: Urine 651 / 2051 1400 / 2051 Other: Weight 71 kg 68.6 kg Weight Measurement Method Built in Bedscale Standing Scale (2) HTN (hypertension) Hypertension type: primary hypertension Qualified Code(s): I10 - Essential (primary) hypertension (4) Mitral regurgitation Cardiac valve disease etiology: nonrheumatic Qualified Code(s): I34.0 - Nonrheumatic mitral (valve) insufficiency (6) CAD (coronary artery disease) Associated angina: without angina Coronary Disease-Associated Artery/Lesion type: kaw artery [place] vs. transplanted heart: kaw heart Qualified Code(s): I25.10 - Atherosclerotic heart disease of [place] coronary artery without angina pectoris
--- NOTE | 2023-09-26 12:18 | Anesthesiology Consultation ---
Date of Service September 26, 2023 Assessment & Plan (1) Encounter for pre-operative examination: Chart Review Chart Review: Acceptable Risk for Surgery History Surgery Operation Date: 09/26/23 12:00 Proposed Procedures p Transesophageal Echo w/Anesthesia - Homer Lindsey DO Height/Weight Height: 5 ft 2 in Weight: 68.6 kg Allergies Allergy/AdvReac Type Severity Reaction Status Date / Time erythromycin base Allergy Severe Gastrointestinal Unverified 09/25/23 11:12 Upset ezetimibe [From Zetia] Allergy Severe Leg Cramps Unverified 09/25/23 11:12 [id number] Reductase Allergy Severe Gastrointestinal Unverified 09/25/23 11:12 Inhibitor Upset Sulfa (Sulfonamide Allergy Severe Gastrointestinal Unverified 09/25/23 11:12 Antibiotics) Upset adhesive tape Allergy Unknown Unknown Unverified 09/25/23 11:12 omeprazole Allergy Unknown Unknown Unverified 09/25/23 11:12 orphenadrine Allergy Unknown Unconscious Unverified 09/25/23 11:12 gabapentin AdvReac Severe Vertigo/Diz Unverified 09/25/23 11:12 ziness NSAIDS (Non-Steroidal AdvReac Severe Rectal Unverified 09/25/23 11:12 Anti-Inflamma Bleeding Medications Home Medications Medication Instructions Recorded Confirmed Last Taken acetaminophen 650 mg 650 mg PO Q12H 09/25/23 09/25/23 Unknown tablet,extended release albuterol sulfate 90 mcg/actuation 1 - 2 puff inhalation QID PRN 09/25/23 09/25/23 Unknown aerosol inhaler wheezing/SOB amitriptyline 25 mg tablet 50 mg PO HS 09/25/23 09/25/23 Unknown aspirin 81 mg tablet 81 mg PO QAM 09/25/23 09/25/23 Unknown fluticasone 250 mcg-salmeterol 50 1 inh inhalation BID PRN Shortness 09/25/23 09/25/23 Unknown mcg/dose blistr powdr for Of Breath inhalation furosemide 20 mg tablet 20 mg PO DAILY PRN Edema 09/25/23 09/25/23 Unknown levocetirizine 5 mg tablet (Xyzal) 5 mg PO HS 09/25/23 09/25/23 Unknown meclizine 25 mg tablet 25 mg PO TID PRN Dizziness Or 09/25/23 09/25/23 Unknown Vertigo metoprolol succinate 25 mg 25 mg PO QAM 09/25/23 09/25/23 Unknown tablet,extended release 24 hr rabeprazole 20 mg tablet,delayed 20 mg PO BID 09/25/23 09/25/23 Unknown release simethicone 80 mg chewable tablet 80 mg PO BID PRN Gastric Reflux 09/25/23 09/25/23 Unknown Active Medications Generic Name Dose Route Start Last Admin Trade Name Lisa PRN Reason Stop Dose Admin Amitriptyline HCl 50 mg 09/25/23 21:00 09/25/23 19:50 Amitriptyline Hcl 50 Mg Tab PO 10/25/23 20:59 50 mg HS KIMBERLY Administration Aspirin 81 mg 09/26/23 09:00 09/26/23 08:41 Aspirin 81 Mg Chew PO 10/26/23 08:59 81 mg QAM KIMBERLY Administration Cetirizine HCl 10 mg 09/25/23 21:00 09/25/23 19:50 Cetirizine Hcl 10 Mg Tablet PO 10/25/23 20:59 10 mg HS KIMBERLY Administration Diltiazem HCl 125 mg/ Dextrose 125 mls @ 10 mls/hr 09/25/23 10:30 09/26/23 03:15 IV 10/25/23 10:29 10 mg/hr .[id number] KIMBERLY 10 mls/hr Titration Protocol 10 MG/HR Heparin Sodium/Dextrose 25,000 units in 500 mls @ 16 mls/hr 09/25/23 13:15 09/26/23 00:19 Heparin Sodium/Dextrose IV 10/25/23 13:14 800 units/hr .Q24H KIMBERLY 16 mls/hr Titration Protocol 800 UNITS/HR Metoprolol Tartrate 25 mg 09/25/23 14:00 09/26/23 08:41 Metoprolol Tartrate 25 Mg Tab PO 10/25/23 13:59 25 mg Q6H KIMBERLY Administration Pantoprazole Sodium 40 mg 09/25/23 21:00 09/26/23 08:41 Pantoprazole 40 Mg Tab PO 10/25/23 20:59 40 mg BID KIMBERLY Administration Past Medical History Medical History (Updated 09/26/23 @ 12:18 by Ezra Ho MD) Atrial flutter with rapid ventricular response Barretts esophagus Fibromyalgia HTN (hypertension) Dyslipidemia Mitral regurgitation Mitral valve prolapse Bileaflet CAD (coronary artery disease) Nonobstructive per cardiac cath 2016 Past Surgical History Surgical History History of partial hysterectomy History of cholecystectomy Social History Smoking Status: Former smoker Do You Dip or Chew Tobacco: No Hx Alcohol Use: No Hx Substance Use: No Physical Exam Vital Signs Last Vital Signs Temp 36.8 C 09/26/23 08:08 Pulse 92 H 09/26/23 08:08 Resp 20 09/26/23 08:08 BP 119/75 09/26/23 08:44 Pulse Ox 96 09/26/23 08:08 O2 Del Method Room Air 09/26/23 08:08 Testing Laboratory Results 09/25/23 09:43 09/26/23 02:59 PT 11.9 Seconds (9.0-12.0) 09/25/23 10:30 INR 1.1 (0.9-1.1) 09/25/23 10:30 APTT 64.9 Seconds (21.0-31.0) H* 09/26/23 06:08 Electrocardiogram Date: 09/26/23 Atrial flutter, ventricular rate 79 Echocardiogram Date: 09/26/23 EF: 55-60% LV Function: normal Valvular Disease: + MR (moderate)
[2023-09-26 13:07] LABS: Partial Thromboplastin Ratio 2.3
[2023-09-26] MEDS ORDERED: BENZOCAINE/TETRACAIN/BUTAM 50 APPLN/5 GM CAN EXT ONE (13:12)
[2023-09-26 13:21] LABS: Partial Thromboplastin Time 64.3 Seconds (21.0-31.0)
[2023-09-26] MEDS ORDERED: PROPOFOL IV EMULSION 10 MG/ML 20 ML VIAL IV ONE (13:43)
[2023-09-26] MEDS ORDERED: PHENYLEPHRINE 100MCG/ML 5ML SYR ONE (13:43)
--- NOTE | 2023-09-26 14:02 | Anesthesiology Progress Note ---
Date of Service September 26, 2023 Anesthesia Post Procedure Vital Signs Vital Signs: Temp Pulse Pulse Resp BP BP BP 09/26/23 08:44 119/75 09/26/23 08:08 36.8 C 92 H 20 97/61 L 09/26/23 07:53 76 09/26/23 03:36 36.5 C 108 H 20 106/59 L 09/25/23 23:14 36.6 C 71 15 96/62 L 09/25/23 18:24 09/25/23 18:12 109 H 135/74 09/25/23 18:12 76 114/94 09/25/23 17:45 37.2 C 83 20 121/83 09/25/23 17:15 76 19 09/25/23 17:00 112 H 20 114/94 09/25/23 16:45 115 H 23 09/25/23 16:31 102 H 21 125/97 09/25/23 16:30 149 H 18 09/25/23 16:21 133 H 22 09/25/23 16:00 26 H 151/100 H 09/25/23 15:45 17 09/25/23 15:30 156 H 18 130/93 09/25/23 15:27 15 158/88 H 09/25/23 15:15 132 H 16 09/25/23 15:07 133 H 21 09/25/23 15:00 134 H 14 144/90 H 09/25/23 15:00 147 H 19 144/90 H 09/25/23 15:00 140 H 17 09/25/23 14:45 131 H 21 09/25/23 14:30 137 H 11 L 09/25/23 14:22 135 H 09/25/23 14:15 116 H 9 L Pulse Ox O2 Del Method 09/26/23 08:44 09/26/23 08:08 96 Room Air 09/26/23 07:53 09/26/23 03:36 93 Room Air 09/25/23 23:14 94 Room Air 09/25/23 18:24 Room Air 09/25/23 18:12 09/25/23 18:12 09/25/23 17:45 95 Room Air 09/25/23 17:15 09/25/23 17:00 97 Room Air 09/25/23 16:45 09/25/23 16:31 09/25/23 16:30 09/25/23 16:21 09/25/23 16:00 93 Room Air 09/25/23 15:45 96 09/25/23 15:30 94 Room Air 09/25/23 15:27 94 09/25/23 15:15 96 09/25/23 15:07 95 09/25/23 15:00 92 Room Air 09/25/23 15:00 97 Room Air 09/25/23 15:00 97 Room Air 09/25/23 14:45 95 09/25/23 14:30 93 Room Air 09/25/23 14:22 09/25/23 14:15 93 Transfer of Care Handoff Completed per policy Notes Mental Status: alert / awake / arousable Patient Amnestic to Procedure: Yes Nausea / Vomiting: adequately controlled Pain: adequately controlled Airway Patency, RR, SpO2: stable & adequate BP & HR: stable & adequate Hydration State: stable & adequate Anesthetic Complications: no major complications apparent
[2023-09-26] MEDS: HEPARIN SODIUM/DEXTROSE 25,000 UNITS/500 ML BAG IV SCH (15:53)
--- NOTE | 2023-09-26 16:10 | Hospitalist Progress Note ---
Date of Service September 26, 2023 Assessment & Plan (1) Atrial flutter with rapid ventricular response: (2) Mitral valve prolapse: (3) Mitral regurgitation: Plan: Atrial flutter RVR Valvular heart disease --CXR:No acute chest disease. --ECHO: Rhythm is atrial flutter with rapid RVR. EF 55 to 60%. Left atrium is moderately dilated. Mitral valve leaflets appear thickened, but open well. Mild anterior mitral valve prolapse. Moderate mitral regurgitation. Trace tricuspid regurgitation. Doppler findings do not suggest pulmonary hypertension. Top normal IVC diameter with reduced inspiratory variation suggesting RA pressure 8 mmHg. --Normal TSH Continue diltiazem, heparin drip Also started on metoprolol Appreciate cardiology input Initially planned for cardioversion but could not be completed given poor visualization of left atrial appendage. Monitor and replace electrolytes as needed Titrate medications as needed (4) CAD (coronary artery disease): Plan: History of nonobstructive CAD per cardiac cath 2016 Continue ASA and beta-bipin. Not on statin due to history of intolerance (5) HTN (hypertension): Plan: Chronic, stable Continue metoprolol Sciatica Was planned for L5 S1 epidural steroid injection (6) Barretts esophagus: Plan: Continue PPI DVT Px On IV heparin Admission and Anticipated Discharge Date Admission Date: September 25, 2023 Subjective Patient is seen and examined at bedside States having left-sided sciatic pain Denies any chest pain, palpitations, dizziness, nausea, vomiting, abdominal pain, dyspnea On IV heparin No other complaints Plan for cardioversion today Review of Systems Review of Systems: All systems reviewed & are unremarkable except as noted in Subjective Physical Exam Physical Exam: Physical Exam: Vitals signs as noted above General Appearance:Obese, no apparent distress Head: normocephalic, Atraumatic Eyes: normal inspection, EOMI Neck: supple, Trachea midline Respiratory/Chest: Normal breath sounds, CTA, No accessory muscle use Cardiovascular: Irregularly irregular, +murmur Abdomen/GI:Soft, Non tender, Bowel sounds present Extremities/Musculoskeletal:normal inspection, 1+ edema Neurologic/Psych:AAOX3, grossly no focal neurological deficits Skin: normal color, warm Results & Data Results & Data Vital Signs (Past 12 Hours) Vital Signs Temp Pulse Pulse Resp BP BP Pulse Ox 09/26/23 15:30 114 H 20 119/81 93 09/26/23 15:00 85 18 115/75 96 09/26/23 14:30 36.7 C 114 H 18 123/69 94 09/26/23 14:00 89 14 104/74 93 09/26/23 08:44 119/75 09/26/23 08:08 36.8 C 92 H 20 97/61 L 96 09/26/23 07:53 76 O2 Del Method 09/26/23 15:30 Room Air 09/26/23 15:00 Room Air 09/26/23 14:30 Room Air 09/26/23 14:00 Room Air 09/26/23 08:44 09/26/23 08:08 Room Air 09/26/23 07:53 Laboratory Results [facility] 09/26/23 02:59 Sodium 138 Potassium 3.9 Chloride 103 Carbon Dioxide 24 BUN 9 Creatinine 0.92 Glucose 132 H Calcium 9.5 (3) Mitral regurgitation Cardiac valve disease etiology: nonrheumatic Qualified Code(s): I34.0 - Nonrheumatic mitral (valve) insufficiency (4) CAD (coronary artery disease) Coronary Disease-Associated Artery/Lesion type: [place] artery [place] vs. transplanted heart: [place] heart Associated angina: without angina Qualified Code(s): I25.10 - Atherosclerotic heart disease of [place] coronary artery without angina pectoris (5) HTN (hypertension) Hypertension type: primary hypertension Qualified Code(s): I10 - Essential (primary) hypertension
[2023-09-26] MEDS: AMITRIPTYLINE HCL 50 MG TAB PO SCH (21:04)
[2023-09-26] MEDS: CETIRIZINE HCL 10 MG TABLET PO SCH (21:04)
[2023-09-27] MEDS: METOPROLOL TARTRATE 25 MG TAB PO SCH ×4 (02:48→22:36)
--- OUTSIDE RECORDS SUMMARY | 2023-09-27 04:48 | External Medical Summary | Summary of Care ---
Author Name Unknown Organization [facility] Address [address] [place] [address] Phone [phone] Care Team Providers Care Concept Artist Name Role Phone Miladis Hightower MD Primary Care Provide r Reason for Visit * Reason Onset Date Comments Advice 09/19/2023 Encounter Details Date Type Department Care Team (Late st Contact Info) Description 09/19/[address] [phone] Miladis Hightower MD [address] [place] [address] [place] [id number] Advice Allergies Active Allergy Reactions Criticality Noted Date Comments Adhesive Tape 08/14/2010 Band aids--red skin, blisters Chlorzoxazone 10/15/2000 parafon Orr-2 Inhibitors 01/27/2003 rash Diclofenac Resin 10/15/2000 gi bleed Erythromycin 10/15/2000 Gabapentin 01/10/2022 Caused patient to have falls Atorvastatin Other (Please comment) 05/15/2018 Leg cramps Naproxen 10/15/2000 gastritis Omeprazole 08/14/2010 Abdominal pain Orphenadrine Citrate 10/15/2000 Piroxicam 10/15/2000 feldene, gastritis Rofecoxib 01/27/2003 gastritis Statins 03/16/2019 Myalgia Sulfa Antibiotics 10/15/2000 Ezetimibe 07/14/2019 Leg cramps documented as of this encounter (statuses as of 09/23/2023) Medications Medication Sig Dispensed Refills Start Date End Date Status aspirin 81 MG chewable tablet Take 1 Tablet by mouth in the morning. with food.. 100 Tab 5 06/03/2016 Active Levocetirizine Dihydrochloride 5 MG Oral Tablet Take 1 Tablet by mouth every evening. 0 Active Simethicone 80 MG Oral Tablet Chewable Take 1 Tablet by mouth every 6 hours as needed for Gas. 0 Active Amitriptyline HCl 25 MG Oral Tablet (Elavil)Indications:Fi bromyalgia TAKE TWO TABLETS BY MOUTH AT BEDIME 180 Tablet 3 05/05/2023 05/04/2024 Active Fluticasone-Salmeterol 250-50 MCG/ACT Inhalation Aerosol Powder Breath Activated (Advair Diskus) INHALE ONE PUFF BY MOUTH TWICE A DAY IN THE MORNING AND BEFORE BEDTIME 180 Each 3 04/28/2023 04/27/2024 Active Furosemide 20 MG Oral Tablet (Lasix)Indications:Per ipheral edema TAKE ONE TABLET BY MOUTH EVERY DAY NEEDED FOR EDEMA 90 Tablet 0 04/24/2023 04/23/2024 Active Metoprolol Succinate ER 25 MG Oral Tablet Extended Release 24 Hour (toPROL XL) TAKE ONE TABLET BY MOUTH EVERY MORNING 90 Tablet 1 04/07/2023 04/06/2024 Active Albuterol Sulfate HFA 108 (90 Base) MCG/ACT Inhalation Aerosol SolutionIndications:As thma, allergic, mild intermittent, uncomplicated INHALE 1 PUFF BY MOUTH EVERY 6 HOURS NEEDED FOR WHEEZING 54 g 1 05/31/2023 05/30/2024 Active RABEprazole Sodium 20 MG Oral Tablet Delayed Release TAKE 1 TABLET BY MOUTH IN THE IN THE MORNING AND 1 TABLET AT BEDTIME 200 Tablet 1 06/26/2023 06/25/2024 Active Meclizine HCl 25 MG Oral Tablet (Antivert) TAKE ONE TABLET BY MOUTH THREE TIMES A DAY NEEDED 270 Tablet 0 07/16/2023 Active Acetaminophen ER 650 MG Oral Tablet Extended Release (Tylenol 8 Hour) Take 1 Tablet by mouth every 8 hours as needed. 0 Active traMADol HCl 50 MG Oral Tablet (Ultram)Indications:Sp inal stenosis of lumbar region without neurogenic claudication Take 1 Tablet by mouth 2 times a day as needed for Pain, Severe. 60 Tablet 1 08/29/2023 Active documented as of this encounter (statuses as of 09/23/2023) Active Problems Problem Noted Date Diagnosed Date Dyslipidemia 06/29/2023 Gastroesophageal reflux dise ase with esophagitis without hemorrhage 06/29/2023 Asthma, allergic, mild intermittent, uncomplicat ed 02/12/2023 Primary osteoarthritis of left hip 10/07/2022 Spinal stenosis of lumbar re gion without neurogenic claudication 10/07/2022 Allergic rhinitis 04/29/2022 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 09/04/2020 Fibromyalgia Irritable bowel syndrome with diarrhea Migraine with aura and witho ut status migrainosus, not intractable HTN, goal below 130/80 Mitral valve prolapse documented as of this encounter (statuses as of 09/23/2023) Resolved Problems Problem Noted Date Diagnosed Date Resolved Date Neuritis of upper extremity 01/27/2023 06/29/2023 COVID-19 virus infection 02/16/202101/2021 Major depressive disorder, s johnnie episode, unspecified 09/04/2020 03/26/2021 Extrinsic asthma 12/08/2017 12/08/2017 Mild persistent asthma without complication 12/08/2017 06/29/2023 Diverticulitis of colon 05/16/201005/11 ADVANCE DIRECTIVE INFORMATION 02/13/2006 06/29/2023 Overview: No, Advance Directive brochure given to patient at prior appointment. Insomnia 06/19/2005 06/29/2023 Overview: ICD-10 update of inactive term Intractable migraine 03/16/2004 016 Overview: ICD-10 update of inactive term Dyslipidemia, goal LDL below 130 07/15/2002 06/29/2023 EXT ASTHMA W-O STAT ASTH Heartburn 06/29/2023 Major depressive disorder Overview: ICD-10 update of inactive term documented as of this encounter (statuses as of 09/23/2023) Immunizations Name Administration Dates Next Due COVID-19 mRNA, LNP-s, No Pre serve, 2-Dose Series (Moderna) 03/16/2021,02/09/2021 COVID-19, mRNA, LNP-s, PF, B ooster, 100mcg/0.5mg (Moderna) 11/07/2021 H1N1 2009 Influenza, IM 11/08/2009 Pneumococcal Conjugate Vacc, 13 Valent (Prevnar) 12/08/2017 Pneumococcal Polysaccharide PPV23 (Pneumovax) 02/03/2019 SEASONAL INFLUENZA, PF, 6 M & Above, IM , (FLULAVAL or FLUZONE) 09/11/2022,09/16/2017 Season Influenza, Quad, PF, Adjuvanted, 65+ Yrs, IM (FLUAD) 09/04/2020 Seasonal Influenza, Quadriva lent Hd (Fluzone Hd) 09/03/2023,09/10/2021 Seasonal Influenza, Split, I IV3, No Preserve, Inj 08/24/2010 Seasonal Influenza, Split, I IV3, With Preserve, Inj 07/23/2018,08/19/2011,11/08/2009,08/25,10/11/2006 Seasonal Influenza, Trivalen t, Adjuvanted, 65+ yrs 08/09/2019 TDAP (age 11 and older)(Adacel) 07/21/2008 documented as of this encounter Social History Tobacco Use Types Packs/Day Years Used Date Smoking Tobacco: Former Cigarettes 2 4 Q uit: 11/10/1984 Smokeless Tobacco: Never Alcohol Use Standard Drinks/Week Comments No 0 (1 standard drink = 0.6 oz pur e alcohol) PHQ-2 Answer Date Recorded PHQ Adult Total Score 0 11/07/2021 Hunger Vital Sign Answer Date Recorded Worried About Running Out of Food in the Last Ye ar Never true 09/04/2020 Ran Out of Food in the Last Year Never true 09/04/2020 Sex and Gender Information Value Date Recorded Sex Assigned at Female 11/07/2021 11:06 AM EST Gender Identity Female 11/07/2021 11:06 AM EST Sexual Orientation Straight 11/07/2021 11 :06 AM EST Job Start Date Occupation Industry Not on file Not on file Not on file documented as of this encounter Miscellaneous Notes * Telephone Encounter - Cole Walters LPN - 09/23/2023 2:22 PM EST She is aware of Note below * Telephone Encounter - Miladis Hightower MD - 09/23/2023 1:50 PM EST I would recommend she take Tylenol 650 mg three times a day and keep appointment for the injection on as scheduled * Telephone Encounter - Nuha Raymond RN - 09/23/2023 12:44 PM EST Pt is scheduled for a back injection 09-25-23 * Telephone Encounter - Missy Barriga OSA - 09/22/2023 11:43 AM EST Patient called in again regarding the Tramadol. Patient states that the Tramadol is not helping herback and it stated to upset her stomach. Patient stated that she discontinued using the Tramadol. Patient is wondering what else might be recommended to help her back as she can barely walk. Please return Pt call to advise. * Telephone Encounter - Bernice Darling OSA - 09/19/2023 9:21 AM EST Patient called and said that she was TraMADol 50mg and she has been taking it but it isn't helping.States she is going for the injection 09/25 but needs something to help her in the mean time. Please let her know if something different can be called in. documented in this encounter Plan of Treatment Upcoming Encounters Date Type Department Care Team (Latest Contact Info) Description 09/25/2023 8:00 AM EST Hospital Encounter [facility], Operating Room [facility] [address] [place] [phone] Mikey Quiñones, [address] [place] [phone] 09/25/2023 8:00 AM EST - 09/25/2023 8:25 AM EST Surgery OR [facility], Operating Room [facility] [address] [place] [phone] Mikey Quiñones DO [address] [place] [address] INJECTION SPINE LUMBAR OR SACRAL 10/21/2023 1:40 PM EST Office Visit [address] [place] [phone] Miladis Hightower MD [address] [place] [address] [place] [address] 04/09/2024 10:00 AM EDT Imaging Radiology [address] [place] [address] 04/09/2024 10:30 AM EDT Imaging Radiology [facility] [place] [address] Scheduled Procedures Name Priority Associated Diagnoses Date/Ti me INJECTION SPINE LUMBAR OR SACRAL Lumbar radiculopathy 09/25/2023 8:00 AM EST ESOPHAGOGASTRODUODENOSCOPY ( EGD), FLEXIBLE, TRANSORAL, DIAGNOSTIC Recall Lundy esophagus Health Maintenance Due Date Last Done Comments Albumin/Creatinine Ratio 1969 Cologuard 1996 Fecal Occult Blood Test 1996 Sigmoidoscopy 1996 Zoster Vaccines (1 of 2) 2001 DTaP,Tdap,and Td Vaccines (2 - Td or Tdap) 07/21/2018 07/21/2008 Colonoscopy 2021 2011, 05/12/2008 Colorectal Cancer Screening 2021 Depression Screening 11/07/2022 11/07/2021 COVID-19 Vaccine ( season) 2023 11/07/2021, 03/16/2021, 02/09/2021 GFR 10/21/2023 10/21/2022, 07/11, 09/04/2020, Additional history exists Mammogram 04/08/2024 04/08/2023, 08/10, 02/01/2022, Additional history exists DXA Scan 10/15/2024 10/15/2017 Lundy's Esophagus Surveilance 12/24/2024 12/24/2021, 08/07/2018, 06/08/2018 Lipid Panel 10/21/2027 10/21/2022, 07/11, 06/14/2019, Additional history exists Pneumococcal Vaccine: 65+ Years Completed 02/03/2019, 12/08/2017, 09/05/2014, Additional history exists Influenza Vaccine (FLU shot) Completed , 09/11/2022, 09/10/2021, Additional history exists GARDASIL-HPV IMMUNIZATION SERIES Aged Out No longer eligible based on patient's age to complete this topic Hepatitis B Aged Out No longer eligi ble based on patient's age to complete this topic MENINGOCOCCAL (MENACTRA/MENVEO) Aged Out No longer eligible based on patient's age to complete this topic documented as of this encounter Medical Devices Not on filedocumented as of this encounter Advance Directives Healthcare Agents on File Name Relationship Healthcare Agent Relationshi p Communication Audrey Facer Friend Health Care Repr esentative (appointed verbally by patient or by statute hierarchy) Care Teams Concept Artist Relationship Specialty Start Date End Date Miladis Hightower MD [address] [place] [address] [place] [phone] PCP - General Family Medicine 10/07/17 documented as of this encounter
--- OUTSIDE RECORDS SUMMARY | 2023-09-27 04:49 | External Medical Summary | Summary of Care ---
Author Name Unknown Organization [facility] Address [address] [place] [facility] [place] [address] Phone [phone] Care Team Providers Care Assembler Production Line Name Role Phone Miladis Hightower MD Primary Care Provide r Encounter Details Date Type Department Care Team (Late st Contact Info) Description 09/03/2023 2:20 PM EDT Immunization Ancillary [address] [place] [phone] [place] [address] [place] [phone] Arrived Allergies Active Allergy Reactions Criticality Noted Date [...] as of this encounter (statuses as of 09/03/2023) Medications Medication Sig Dispensed Refills Start Date [...] every 8 hours as needed. 0 Active Baclofen 10 MG Oral Tablet (Lioresal)Indications: Spinal stenosis of lumbar region without neurogenic claudication Take 1 Tablet by mouth in the morning and 1 Tablet before bedtime. 20 Tablet 0 08/11/2023 Active predniSONE 20 MG Oral Tablet (Deltasone) 1 tab 3 times a day for 3 days, then 1 tab 2 times a day for 3 days, then 1 tab daily for 3 days 18 Tablet 0 08/11/2023 Active traMADol HCl 50 MG Oral Tablet (Ultram)Indications:Sp inal stenosis of lumbar region without neurogenic claudication Take 1 Tablet by mouth 2 times a day as needed for Pain, Severe. 60 Tablet 1 08/29/2023 Active documented as of this encounter (statuses as of 09/03/2023) Active Problems Problem Noted Date Diagnosed Date [...] as of this encounter (statuses as of 09/03/2023) Resolved Problems Problem Noted Date Diagnosed Date [...] as of this encounter (statuses as of 09/03/2023) Immunizations Name Administration Dates Next Due COVID-19 [...] drink = 0.6 oz pur e alcohol) Sex and Gender Information Value Date Recorded Sex Assigned at Female 11/07/2021 11:06 AM EST Gender Identity Female 11/07/2021 11:06 AM EST Sexual Orientation Straight 11/07/2021 11 :06 AM EST Job Start Date Occupation Industry Not on file Not on file Not on file documented as of this encounter Plan of Treatment Upcoming Encounters Date Type Department Care Team (Late st Contact Info) Description 09/17/2023 10:00 AM EST Office Visit [facility] [address] [facility] [place] [phone] Patience Gloria PA-C [address] [place] [address] 09/25/2023 10:30 AM EST Office Visit Orthopaedics [address] [phone] Jaime Mariano MD [address] [place] [address] 10/21/2023 1:40 PM EST Office Visit Family Medicine [address] [phone] Miladis Hightower MD [address] [place] [address] [place] [address] 04/09/2024 10:00 AM EDT Imaging Radiology [address] [facility] [place] [address] 04/09/2024 10:30 AM EDT Imaging Radiology [facility] [place] [address] Scheduled Procedures Name Priority Associated Diagnoses Date/Ti me ESOPHAGOGASTRODUODENOSCOPY ( EGD), FLEXIBLE, TRANSORAL, DIAGNOSTIC Recall [...] Vaccine ( season) 2023 11/07/2021, 03/16/2021, 02/09/2021 Influenza Vaccine (FLU shot) (#1) 2023 09/03/2023, 09/11/2022, 09/10/2021, Additional history exists GFR 10/21/2023 10/21/2022, 07/11, 09/04/2020, Additional history exists Mammogram 04/08/2024 04/08/2023, 08/10, 02/01/2022, Additional history exists DXA Scan 10/15/2024 10/15/2017 Lundy's Esophagus Surveilance 12/24/2024 12/24/2021, 08/07/2018, 06/08/2018 Lipid Panel 10/21/2027 10/21/2022, 07/11, 06/14/2019, Additional history exists Pneumococcal Vaccine: 65+ Years Completed 02/03/2019, 12/08/2017, 09/03/2005 GARDASIL-HPV IMMUNIZATION SERIES Aged Out No longer [...] patient or by statute hierarchy) Care Teams Assembler Production Line Relationship Specialty Start Date End Date Miladis Hightower MD [address] [place] [address] [place] [phone] PCP - General Family Medicine 10/07/17 documented as of this encounter
--- OUTSIDE RECORDS SUMMARY | 2023-09-27 04:49 | External Medical Summary | Summary of Care ---
Author Name Unknown Organization [facility] Address [address] [place] [address] Phone [phone] Care Team Providers Care Floriculturist Name Role Phone Miladis Hightower MD Primary Care Provide r Reason for Visit * Reason Onset Date Comments Med Request 08/19/2023 Encounter Details Date Type Department Care Team Description 08/19/2023 Telephone Family Medicine [address] [phone] Miladis Hightower MD [address] [place] [address] [place] [address] Med Request (/) Allergies Active Allergy Reactions Severity Noted Date Comments Adhesive Tape 08/14/2010 Band [...] as of this encounter (statuses as of 08/29/2023) Medications Medication Sig Dispensed Refills Start Date [...] 3 days 18 Tablet 0 08/11/2023 Active documented as of this encounter (statuses as of 08/29/2023) Active Problems Problem Noted Date Dyslipidemia 06/29/2023 Gastroesophageal reflux disease with eso phagitis without hemorrhage 06/29/2023 Asthma, allergic, mild intermittent, unc omplicated 02/12/2023 Primary osteoarthritis of left hip 10/07 Spinal stenosis of lumbar region without neurogenic claudication 10/07/2022 Allergic rhinitis 04/29/2022 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 Fibromyalgia Irritable bowel syndrome with diarrhea Migraine with aura and without status mi grainosus, not intractable HTN, goal below 130/80 Mitral valve prolapse documented as of this encounter (statuses as of 08/29/2023) Resolved Problems Problem Noted Date Resolved Date Neuritis of upper extremity 01/27/202306/11 COVID-19 virus infection 02/16/2021 021 Major depressive disorder, single episode, unspe cified 09/04/2020 03/26/2021 Extrinsic asthma 12/08/2017 12/08/2017 Mild persistent asthma without complication 11/1106/29/2023 Diverticulitis of colon 05/16/2010 06/03/20 16 ADVANCE DIRECTIVE INFORMATION 02/13/2006 Overview: No, Advance Directive brochure given to patient at prior appointment. Insomnia 06/19/2005 06/29/2023 Overview: ICD-10 update of inactive term Intractable migraine 03/16/2004 06/03/2016 Overview: ICD-10 update of inactive term Dyslipidemia, goal LDL below 130 07/15/2002 06/29/2023 EXT ASTHMA W-O STAT ASTH 018 Heartburn 06/29/2023 Major depressive disorder 2015 Overview: ICD-10 update of inactive term documented as of this encounter (statuses as of 08/29/2023) Immunizations Name Administration Dates Next Due COVID-19 mRNA, LNP-s, No Pre serve, 2-Dose Series (Moderna) 03/16/2021,02/09/2021 COVID-19, mRNA, LNP-s, PF, B ooster, 100mcg/0.5mg (Moderna) 11/07/2021 H1N1 2009 Influenza, IM 11/08/2009 Influenza, Whole Virus 09/17/2000,1998,08/17/1998,04/1996 Pneumococcal Conjugate Vacc, 13 Valent (Prevnar) 12/08/2017 Pneumococcal Polysaccharide PPV23 (Pneumovax) 02/03/2019,09/03/2005 SEASONAL INFLUENZA, PF, 6 M & Above, IM , (FLULAVAL or FLUZONE) 09/11/2022,09/16/2017 Season Influenza, Quad, PF, Adjuvanted, 65+ Yrs, IM (FLUAD) 09/04/2020 Seasonal Influenza, Quadriva lent Hd (Fluzone Hd) 09/10/2021 Seasonal Influenza, Split, I IV3, No Preserve, Inj 08/24/2010 Seasonal Influenza, Split, I IV3, With Preserve, Inj 07/23/2018,08/19/2011,11/08/2009,08/10,10/11/2006,09/03/2005,09/08/20 02,10/12/2001 09/08/2003 Seasonal Influenza, Trivalen t, Adjuvanted, 65+ yrs 08/09/2019 TDAP (age 11 and older)(Adacel) 07/21/2008 documented as of this encounter Social History Tobacco Use Types Packs/Day Years Used Date Smoking Tobacco: Former Cigarettes 2 4 Q uit: 11/10/1984 Smokeless Tobacco: Never Alcohol Use Standard Drinks/Week Comments No 0 (1 standard drink = 0.6 oz pur e alcohol) Food Insecurity Answer Date Recorded Within the past 12 months, y ou worried that your food would run out before you got money to buy more. Never true 09/04/2020 Within the past 12 months, t he food you bought just didn't last and you didn't have money to get more. Never true 09/04/2020 Sex Assigned at Date Recorded Female 11/07/2021 11:06 AM EST Job Start Date Occupation Industry Not on file Not on file Not on file documented as of this encounter Miscellaneous Notes * Telephone Encounter - Nely Jackman LPN - 08/29/2023 11:07 AM EDT Patient calling back, agreeable to try Tramadol. Pharmacy selected. * Telephone Encounter - Pau Rao CMA - 08/29/2023 10:31 AM EDT Left message to call [phone]. * Telephone Encounter - Karina Cain MD - 08/28/2023 2:50 PM EDT Multiple allergies noted. Would she be willing to try Tramadol? * Telephone Encounter - Cole Walters LPN - 08/27/2023 5:[address] Johnny Cain Md on 07/24/2023 and was treated with prednisone x 2 rounds, baclofen x 2 rounds, and now wants pain meds until Nov apt with interventional pain * Telephone Encounter - Cecilia Ramirez CPhT - 08/19/2023 8:25 AM EDT Patient calling she stated she asked her Orthopedic for something for pain until seen by pain management but he refused. Patient stated she cannot walk the pain is so severe. She is asking for something for pain until seen. Please advise patient. Thank you, Cecilia Ramirez CPhT [employer]ola [employer]ger [facility] ([facility])(formerly telepharmacy) 08/19/2023,8:27 AM documented in this encounter Plan of Treatment Upcoming Encounters Date Type Specialty Care Team Description 09/17/2023 Office Visit Pain Medicine Day, Patience, PA-C [address] [place] [address] 09/25/2023 Office Visit Orthopedics Jaime Mariano MD [address] [place] [address] 10/21/2023 Office Visit Family Medicine Miladis Hightower MD [address] [place] [address] [place] [address] 04/09/2024 Imaging Radiology 04/09/2024 Imaging Radiology Scheduled Procedures Name Priority Associated Diagnoses Date/Ti [...] 02/09/2021 Influenza Vaccine (FLU shot) (#1) 2023 09/11/2022, 09/10/2021, 09/04/2020, Additional history exists GFR 10/21/2023 10/21/2022, 07/11, [...] patient or by statute hierarchy) Care Teams Floriculturist Relationship Specialty Start Date End Date Miladis Hightower MD [address] [place] [address] [place] [address] PCP - General Family Medicine 10/07/17 documented as of this encounter
--- OUTSIDE RECORDS SUMMARY | 2023-09-27 04:49 | External Medical Summary | Summary of Care ---
Author Name Unknown Organization [facility] Address [address] [place] [address] Phone [phone] Care Team Providers Care Nuclear Operations Specialist Name Role Phone Miladis Hightower MD Primary Care Provide r Encounter Details Date Type Department Care Team (Late st Contact Info) Description 07/29/2023 Population Health External Data Unspecified Department Allergies Active Allergy Reactions Criticality Noted Date [...] as of this encounter (statuses as of 09/22/2023) Medications Medication Sig Dispensed Refills Start Date [...] every 8 hours as needed. 0 Active documented as of this encounter (statuses as of 09/22/2023) Active Problems Problem Noted Date Diagnosed Date [...] as of this encounter (statuses as of 09/22/2023) Resolved Problems Problem Noted Date Diagnosed Date [...] as of this encounter (statuses as of 09/22/2023) Immunizations Name Administration Dates Next Due COVID-19 [...] EST Hospital Encounter OR [facility] Operating Room [facility] [address] [place] [phone] Mikey Quiñones DO [address] [place] [phone] 09/25/2023 8:00 AM EST - 09/25/2023 8:25 AM EST Surgery OR [facility], Operating Room [facility] [address] [place] [phone] Mikey Quiñones DO [address] [place] [phone] INJECTION SPINE LUMBAR OR [facility] 10/21/2023 1:40 PM EST Office Visit Family Medicine [address] [place] [phone] Miladis Hightower MD [address] [place] [address] [place] [address] 04/09/2024 10:00 AM EDT Imaging Radiology [address] [facility] [place] [address] 04/09/2024 10:30 AM EDT Imaging Radiology [facility] [address] [facility] [place] [address] Scheduled Procedures Name Priority Associated Diagnoses Date/Ti [...] Vaccine: 65+ Years Completed 02/03/2019, 12/08/2017, 09/03/2005 Influenza Vaccine (FLU shot) Completed , 09/11/2022, [...] patient or by statute hierarchy) Care Teams Nuclear Operations Specialist Relationship Specialty Start Date End Date Miladis Hightower MD [address] [place] [address] [place] [phone] PCP - General Family Medicine 10/07/17 documented as of this encounter
--- OUTSIDE RECORDS SUMMARY | 2023-09-27 04:49 | External Medical Summary | Summary of Care ---
Author Name Unknown Organization [facility] Address [address] [place] [address] Phone [phone] Care Team Providers Care Exercise Physiologist Name Role Phone Miladis Hightower MD Primary Care Provide r Reason for Visit * Reason Onset Date Comments Follow Up 09/10/2023 Encounter Details Date Type Department Care Team (Late st Contact Info) Description 09/10/[address] [phone] Miladis Hightower MD [address] [place] [address] [place] [phone] Follow Up Allergies Active Allergy Reactions Criticality Noted Date [...] as of this encounter (statuses as of 09/10/2023) Medications Medication Sig Dispensed Refills Start Date [...] as of this encounter (statuses as of 09/10/2023) Active Problems Problem Noted Date Diagnosed Date [...] as of this encounter (statuses as of 09/10/2023) Resolved Problems Problem Noted Date Diagnosed Date [...] as of this encounter (statuses as of 09/10/2023) Immunizations Name Administration Dates Next Due COVID-19 [...] encounter Miscellaneous Notes * Telephone Encounter - Emily Pedersen RN - 09/10/2023 9:40 AM EDT Left message for the patient to call the office to discuss and offer an AWV with me . Patient is eligible for the $40 [employer] gift card through their insurance when they keep trinity. When pt calls back please transfer call to [phone] or scheduled pt for an AWV. thanks Reason for Call: Appointment (Needs annual wellness visit sched) Contact: Telephone Call Contact Type: Follow-up Outcome: see note Face to face time spent with Patient (minutes): 0 Total Time including non face to face (minutes): 10 documented in this encounter Plan of Treatment Upcoming Encounters Date Type Department Care Team (Late st Contact Info) Description 09/17/2023 10:00 AM EST Office Visit [facility] [address] [place] [address] Patience Gloria PA-C [address] [place] [address] 09/25/2023 10:30 AM EST Office Visit Orthopaedics [address] [phone] Jaime Mariano MD [address] [place] [address] 10/21/2023 1:40 PM EST Office Visit Family Medicine [address] [phone] Miladis Hightower MD [address] [place] [address] [place] [address] 04/09/2024 10:00 AM EDT Imaging Radiology [address] 132 [place] [address] 04/09/2024 10:30 AM EDT [facility] [address] [place] [address] Scheduled Procedures Name Priority Associated Diagnoses Date/Ti [...] patient or by statute hierarchy) Care Teams Exercise Physiologist Relationship Specialty Start Date End Date Miladis Hightower MD [address] [place] [address] [place] [phone] PCP - General Family Medicine 10/07/17 documented as of this encounter
--- OUTSIDE RECORDS SUMMARY | 2023-09-27 04:49 | External Medical Summary | Summary of Care ---
Author Name Unknown Organization [facility] Address [address] [place] [address] Phone [phone] Care Team Providers Care Endoscopy Support Specialist Name Role Phone Miladis Hightower MD Primary Care Provide r Reason for Visit * Reason Onset Date Comments Med Request 08/19/2023 Encounter Details Date Type Department Care Team Description 08/19/2023 Telephone Family Medicine [address] [phone] Miladis Hightower MD [address] [place] [address] [place] [address] Med Request (/) Allergies Active Allergy [...] as of this encounter (statuses as of 08/27/2023) Medications Medication Sig Dispensed Refills Start Date [...] as of this encounter (statuses as of 08/27/2023) Active Problems Problem Noted Date Dyslipidemia 06/29/2023 [...] as of this encounter (statuses as of 08/27/2023) Resolved Problems Problem Noted Date Resolved Date [...] as of this encounter (statuses as of 08/27/2023) Immunizations Name Administration Dates Next Due COVID-19 [...] advise patient. Thank you, Cecilia Ramirez CPhT [employer] [facility] ([facility])(formerly telepharmacy) 08/19/2023,8:27 AM documented in this encounter Plan of Treatment Upcoming Encounters Date Type Specialty Care Team Description 09/17/2023 Office Visit Pain Medicine Patience Gloria PA-C [address] [place] [address] 09/25/2023 Office Visit Orthopedics Jaime Mariano MD [address] [place] [address] 10/21/2023 Office Visit Family Medicine Miladis Hightower MD [address] [place] [address] [place] [address] 04/09/2024 Imaging Radiology 04/09/2024 Imaging Radiology Scheduled [...] patient or by statute hierarchy) Care Teams Endoscopy Support Specialist Relationship Specialty Start Date End Date Miladis Hightower MD [address] [place] [address] [place] [address] PCP - General Family Medicine 10/07/17 documented as of this encounter
--- OUTSIDE RECORDS SUMMARY | 2023-09-27 04:49 | External Medical Summary | Summary of Care ---
Author Name Unknown Organization [facility] Address [address] [place] [address] Phone [phone] Care Team Providers Care Mechanical Developer Prover Name Role Phone Miladis Hightower MD Primary Care Provide r Reason for Visit * Reason Onset Date Comments Med Request 08/19/2023 Encounter Details Date Type Department Care Team Description 08/19/2023 Telephone Family Medicine [address] [phone] Miladis Hightower MD [address] [place] [address] [place] [address] Med Request (/) Allergies Active Allergy [...] as of this encounter (statuses as of 08/28/2023) Medications Medication Sig Dispensed Refills Start Date [...] as of this encounter (statuses as of 08/28/2023) Active Problems Problem Noted Date Dyslipidemia 06/29/2023 [...] as of this encounter (statuses as of 08/28/2023) Resolved Problems Problem Noted Date Resolved Date [...] as of this encounter (statuses as of 08/28/2023) Immunizations Name Administration Dates Next Due COVID-19 [...] encounter Miscellaneous Notes * Telephone Encounter - Karina Cain MD [...] advise patient. Thank you, Cecilia Ramirez CPhT Saw Superintendent [facility] ([facility]formerly telepharmacy) 08/19/2023,8:27 AM documented in this encounter Plan of Treatment Upcoming Encounters Date Type Specialty Care Team Description 09/17/2023 Office Visit Pain Medicine Patience Gloria PA-C [address] [place] [address] 09/25/2023 Office Visit Orthopedics Jaime Mariano MD [address] [place] [address] 10/21/2023 Office Visit Family Medicine Miladis Hightower MD [address] [place] [address] [place] [address] 04/09/2024 Imaging Radiology 04/09/2024 Imaging Radiology Scheduled [...] patient or by statute hierarchy) Care Teams Mechanical Developer Prover Relationship Specialty Start Date End Date Miladis Hightower MD [address] [place] [address] [place] [address] PCP - General Family Medicine 10/07/17 documented as of this encounter
--- OUTSIDE RECORDS SUMMARY | 2023-09-27 04:49 | External Medical Summary | Summary of Care ---
Author Name Unknown Organization [facility] Address [address] [place] [address] Phone [phone] Care Team Providers Care Family Intervention Specialist Name Role Phone Miladis Hightower MD Primary Care Provide r Reason for Visit * Reason Onset Date Comments Med Request 08/19/2023 Encounter Details Date Type Department Care Team Description 08/19/2023 Telephone Family Medicine [address] [phone] Miladis Hightower MD [address] [place] [address] [place] [address] Med Request (/) Allergies Active Allergy [...] encounter Miscellaneous Notes * Telephone Encounter - Pau Rao CMA - 08/29/2023 10:31 AM EDT Left message to call [phone]. * Telephone Encounter - Karina Cain MD [...] advise patient. Thank you, Cecilia Ramirez CPhT Glass Science Engineer [facility] ([facility]formerly telepharmacy) 08/19/2023,8:27 AM documented in this encounter Plan of Treatment Upcoming Encounters Date Type Specialty Care Team Description 09/17/2023 Office Visit Pain Medicine Day, AMAYA Morin [address] [place] [address] 09/25/2023 Office Visit Orthopedics Jaime Mariano MD [address] [place] [address] 10/21/2023 Office Visit Family Medicine Miladis Hightower MD [address] [place] [address] [place] [address] 04/09/2024 Imaging Radiology 04/09/2024 Imaging Radiology Scheduled [...] patient or by statute hierarchy) Care Teams Family Intervention Specialist Relationship Specialty Start Date End Date Miladis Hightower MD [address] [place] [address] [place] [address] PCP - General Family Medicine 10/07/17 documented as of this encounter
--- OUTSIDE RECORDS SUMMARY | 2023-09-27 04:49 | External Medical Summary | Summary of Care ---
Author Name Unknown Organization [facility] Address [address] [place] [address] Phone [phone] Care Team Providers Care Band Instrument Repairer Name Role Phone Miladis Hightower MD Primary Care Provide r Reason for Visit * Reason Comments Back Pain Encounter Details Date Type Department Care Team (Late st Contact Info) Description 09/17/2023 10:00 AM EST Office Visit [facility], [facility] [address] [place] [address] Patience Gloria PA-C [address] [place] [address] Lumbar radicular pain*; Spinal stenosis of lumbar region with neurogenic claudication; Fibromyalgia Allergies Active Allergy Reactions Criticality Noted Date Comments Adhesive Tape 08/14/2010 Band aids--red skin, blisters Chlorzoxazone 10/15/2000 parafon Barajas-2 Inhibitors 01/27/2003 rash Diclofenac Resin 10/15/2000 gi bleed Erythromycin 10/15/2000 Gabapentin 01/10/2022 Caused patient to have falls Atorvastatin Other (Please comment) 05/15/2018 Leg cramps Naproxen 10/15/2000 gastritis Omeprazole 08/14/2010 Abdominal pain Orphenadrine Citrate 10/15/2000 Piroxicam 10/15/2000 feldene, gastritis Rofecoxib 01/27/2003 gastritis Statins 03/16/2019 Myalgia Sulfa Antibiotics 10/15/2000 Ezetimibe 07/14/2019 Leg cramps documented as of this encounter (statuses as of 09/17/2023) Medications Medication Sig Dispensed Refills Start Date [...] Active Amitriptyline HCl 25 MG Oral Tablet (Elavil)Indications:F ibromyalgia TAKE TWO TABLETS BY MOUTH AT BEDIME 180 Tablet 3 05/05/2023 4 Active Fluticasone-Salmetero l 250-50 MCG/ACT Inhalation Aerosol Powder Breath Activated (Advair Diskus) INHALE ONE PUFF BY MOUTH TWICE A DAY IN THE MORNING AND BEFORE BEDTIME 180 Each 3 04/28/2023 4 Active Furosemide 20 MG Oral Tablet (Lasix)Indications:Pe ripheral edema TAKE ONE TABLET BY MOUTH EVERY DAY NEEDED FOR EDEMA 90 Tablet 0 04/24/2023 4 Active Metoprolol Succinate ER 25 MG Oral Tablet Extended Release 24 Hour (toPROL XL) TAKE ONE TABLET BY MOUTH EVERY MORNING 90 Tablet 1 04/07/2023 4 Active Albuterol Sulfate HFA 108 (90 Base) MCG/ACT Inhalation Aerosol SolutionIndications:A sthma, allergic, mild intermittent, uncomplicated INHALE 1 PUFF BY MOUTH EVERY 6 HOURS NEEDED FOR WHEEZING 54 g 1 05/31/2023 4 Active RABEprazole Sodium 20 MG Oral Tablet Delayed Release TAKE 1 TABLET BY MOUTH IN THE IN THE MORNING AND 1 TABLET AT BEDTIME 200 Tablet 1 06/26/2023 4 Active Meclizine HCl 25 MG Oral Tablet (Antivert) TAKE ONE TABLET BY MOUTH THREE TIMES A DAY NEEDED 270 Tablet 0 07/16/2023 Active Acetaminophen ER 650 MG Oral Tablet Extended Release (Tylenol 8 Hour) Take 1 Tablet by mouth every 8 hours as needed. 0 Active traMADol HCl 50 MG Oral Tablet (Ultram)Indications:S queta stenosis of lumbar region without neurogenic claudication Take 1 Tablet by mouth 2 times a day as needed for Pain, Severe. 60 Tablet 1 08/29/2023 Active Baclofen 10 MG Oral Tablet (Lioresal)Indications :Spinal stenosis of lumbar region without neurogenic claudication Take 1 Tablet by mouth in the morning and 1 Tablet before bedtime. 20 Tablet 0 08/11/2023 3 Discontinue d(Medicatio n List Clean Up) predniSONE 20 MG Oral Tablet (Deltasone) 1 tab 3 times a day for 3 days, then 1 tab 2 times a day for 3 days, then 1 tab daily for 3 days 18 Tablet 0 08/11/2023 3 Discontinue d(Medicatio n List Clean Up) documented as of this encounter (statuses as of 09/17/2023) Active Problems Problem Noted Date Diagnosed Date [...] as of this encounter (statuses as of 09/17/2023) Resolved Problems Problem Noted Date Diagnosed Date [...] as of this encounter (statuses as of 09/17/2023) Immunizations Name Administration Dates Next Due COVID-19 [...] on file documented as of this encounter Progress Notes * Patience Gloria PA-C - 09/17/2023 10:03 AM EST GENERAL HISTORY & PHYSICAL EXAMINATION - Anesthesia and Pain Service Name: Rosalinda Breen Location: [facility] REFERRING PHYSICIAN: Miladis Hightower MD Thank you for referring Rosalinda Breen. CHIEF COMPLAINT: Low back and L LE pain HPI: Rosalinda Breen is a 72 year old female who complains of low back pain that radiates to left anterior, lateral thigh and brower. Can also radiate to groin. Low back pain started a number of yearsago without preceding injury. Significantly increased in the past two months without injury. Followed recently with family practice for this complaint, note from 07/24/23 reviewed - no lasting improvement with oral steroid x's two, muscle relaxant. Surgical consultation with Dr. Simmons Sep 2022, recommended conservative care. Followed with orthopedics for L hip and groin pain, trochanteric bursa and intra-articular hip injections, temporary relief. Symptoms occur daily. Pain is constant, rated "15 0/10." Aggravating factors include: walking, standing. Unable to provide alleviating factors. Admits associated L foot paresthesia, rather diffusely, does not extend to calf - new in past two months.Intermittent weakness B LE, ambulates with cane. Denies R LE radicular pain, paresthesia. Denies bowel or bladder incontinence. Denies hx spine surgery. Vague hx of lumbar spinal injections more thanthirty years ago, unable to provide name of provider, approach unknown. Per patient, provided no pain relief. Pain is affecting ADL. Personally reviewed L spine MRI 06/17/22 - motion artifact, grade 1 listhesis L5/S1, mild to moderate central stenosis, epidural lipomatosis L5/S1, mid to moderate foraminal narrowing through out, contact L nerve roots. Personally reviewed L spine xray 06/13/22 - L4 compression changes causing mild vertebral body height loss, DDD L3/4 thru L5/S1 with diffuse osteophytes and scoliotic curvature. Significant past medical hx includes: HTN, fibromyalgia. Current medications used for pain: tramadol, tylenol. Past medications used for pain: aleve, baclofen, prednisone. Anticoagulation therapy: aspirin 81 mg Diabetic: no +++ extensive allergy list including BARAJAS 2 inhibitors and gabapentin (causing significant dizziness/drowsiness.) Presents with female friend, Audrey. PAST MEDICAL HISTORY: Past Medical History: Diagnosis Date Asthma, allergic Lundy's esophagus 08/23/2010 repeat in 1 yr COVID-19 virus infection 02/16/2021 Depressive disorder, not elsewhere classified Dyslipidemia 06/29/2023 Essential hypertension with goal blood pressure less than 140/90 Gastroesophageal reflux disease with esophagitis without hemorrhage 06/29/2023 Gastroesophageal reflux disease without esophagitis 06/29/2023 Heartburn Irritable bowel syndrome Irritable bowel syndrome with diarrhea Migraine with aura Mitral valve prolapse Myalgia and myositis Need for hepatitis C screening test 06/03/2016 negative Tachycardia Past Medical History - Pertinent Findings: (-) clotting disorder PAST SURGICAL HISTORY: Past Surgical History: Procedure Laterality Date COLONOSCOPY 05/12/2008 normal; Dr. Galan EGD, FLEXIBLE, DIAGNOSTIC 06/08/2018 moderately severe reflux esophagitis, repeat 6 wks/ESOPHAGOGASTRODUODENOSCOPY (EGD), FLEXIBLE, TRANSORAL, DIAGNOSTIC performed by Kaci Barker DO at [facility] EGD, FLEXIBLE, DIAGNOSTIC 08/07/2018 mild inflammation, hiatal hernia, repeat 3 yrs/ESOPHAGOGASTRODUODENOSCOPY (EGD), FLEXIBLE, TRANSORAL, DIAGNOSTIC performed by Kaci Barker DO at [facility] EGD, FLEXIBLE, DIAGNOSTIC 12/24/2021 inflammation on bx, repeat 2-3 yrs / ESOPHAGOGASTRODUODENOSCOPY (EGD), FLEXIBLE, TRANSORAL, DIAGNOSTIC performed by Kaci Barker DO at [facility] EGD, FLEXIBLE, INSERT WIRE, PASS DILATOR 08/23/2010 done z line irregular, 34 cm from incisors faint ring 18mm dilator passed EGD, FLEXIBLE, W/BIOPSY 08/23/2010 done barretts esophagus, repeat in 1 yr FOREARM/WRIST SURGERY NEC Right 07/28/2019 Dr. Patiño. Right thumb ligament reconstruction LAPAROSCOPY; CHOLECYSTECTOMY 08/13/2001 MAMMOGRAM SCREENING BILATERAL Bilateral 06/10/2016 scattered fibroglandular densities, category 2 benign PARTIAL HYSTERECTOMY REPAIR OF NASAL SEPTUM Nasal Septum Repair FAMILY HISTORY: Family History Problem Relation Age of Onset Hypertension Grandmother (Maternal) Heart Disorder Grandmother (Maternal) murmur Cervical Cancer Grandmother (Maternal) Heart failure Grandmother (Maternal) Breast Cancer No significant family history Family History - Pertinent Findings: (-) clotting disorder SOCIAL HISTORY: Social History Tobacco Use Smoking status: Former Packs/day: 2.00 Years: 4.00 Additional pack years: 0.00 Total pack years: 8.00 Types: Cigarettes Quit date: 11/10/1984 Years since quittin.8 Smokeless tobacco: Never Vaping Use Vaping Use: Never used Substance Use Topics Alcohol use: No Drug use: No CURRENT MEDICATIONS: Note that discontinued and completed medications (per the MAR) continue to display for 24 hours. Ordered medications to be given in the future also display. Current Outpatient Medications Medication Sig Dispense Refill aspirin 81 MG chewable tablet Take 1 Tablet by mouth in the morning. with food.. 100 Tab 5 Levocetirizine Dihydrochloride 5 MG Oral Tablet Take 1 Tablet by mouth every evening. Simethicone 80 MG Oral Tablet Chewable Take 1 Tablet by mouth every 6 hours as needed for Gas. Amitriptyline HCl 25 MG Oral Tablet (Elavil) TAKE TWO TABLETS BY MOUTH AT BEDIME 180 Tablet 3 Fluticasone-Salmeterol 250-50 MCG/ACT Inhalation Aerosol Powder Breath Activated (Advair Diskus) INHALE ONE PUFF BY MOUTH TWICE A DAY IN THE MORNING AND BEFORE BEDTIME 180 Each 3 Furosemide 20 MG Oral Tablet (Lasix) TAKE ONE TABLET BY MOUTH EVERY DAY NEEDED FOR EDEMA 90 Tablet 0 Metoprolol Succinate ER 25 MG Oral Tablet Extended Release 24 Hour (toPROL XL) TAKE ONE TABLET BY MOUTH EVERY MORNING 90 Tablet 1 Albuterol Sulfate HFA 108 (90 Base) MCG/ACT Inhalation Aerosol Solution INHALE 1 PUFF BY MOUTH EVERY 6 HOURS NEEDED FOR WHEEZING 54 g 1 RABEprazole Sodium 20 MG Oral Tablet Delayed Release TAKE 1 TABLET BY MOUTH IN THE IN THE MORNING AND 1 TABLET AT BEDTIME 200 Tablet 1 Meclizine HCl 25 MG Oral Tablet (Antivert) TAKE ONE TABLET BY MOUTH THREE TIMES A DAY NEEDED 270Tablet 0 Acetaminophen ER 650 MG Oral Tablet Extended Release (Tylenol 8 Hour) Take 1 Tablet by mouth every 8 hours as needed. Baclofen 10 MG Oral Tablet (Lioresal) Take 1 Tablet by mouth in the morning and 1 Tablet before bedtime. 20 Tablet 0 predniSONE 20 MG Oral Tablet (Deltasone) 1 tab 3 times a day for 3 days, then 1 tab 2 times a day for 3 days, then 1 tab daily for 3 days 18 Tablet 0 traMADol HCl 50 MG Oral Tablet (Ultram) Take 1 Tablet by mouth 2 times a day as needed for Pain, Severe. 60 Tablet 1 No current facility-administered medications for this visit. ALLERGIES: Adhesive tape, Chlorzoxazone, Barajas-2 inhibitors, Diclofenac resin, Erythromycin, Gabapentin, Lipitor[atorvastatin], Naproxen, Omeprazole, Orphenadrine citrate, Piroxicam, Rofecoxib, Statins, Sulfa antibiotics, and Zetia [ezetimibe] ROS: Constitutional: Negative for fatigue, fever, appetite change, unexplained weight loss. ENT: Negative for hearing loss, sore throat. Respiratory: Negative for cough, shortness of breath, dyspnea. Musculoskeletal: Negative for neck, mid-back pain. + low back and L LE pain - see HPI Neurological: Negative for headaches, seizures. + paresthesias LE - see HPI Genitourinary: Negative for dysuria, urinary frequency, hematuria. Hematologic/ Lymphatic: Negative for easy bleeding, bruising, lymphadenopathy. Gastrointestinal: Negative for abdominal pain, nausea, vomiting, constipation, diarrhea. Cardiovascular: Negative for chest pain, palpitations, ankle swelling, orthopnea. PHYSICAL EXAMINATION: Most Recent Vital Signs: There were no vitals filed for this visit. General Appearance: Patient appears to be about stated age, pleasant and cooperative with normal affect. Constantly changing positions while seated due to pain. HEENT: head normocephalic, pupils equal round and reactive to light and accommodation, EOMI, hearing intact and equal bilaterally, and nose clear, throat normal Chest: No gross abnormality. Nonlabored breathing. Lumbar Spine: Normal lumbar lordatic curvature is present. Skin is intact without gross abnormalities. No masses palpable. Diffuse TTP to light touch through out lumbar and buttock - difficult exam to complete. Limited active ROM with flexion and extension of the lumbar spine. Lower Extremity Strength: Hip Flexion 5/5 bilaterally. Hip Abductor 5/5 bilaterally. Hip Adductor 5/5 bilaterally. Extensor Hallicus Longus 5/5 bilaterally. Deep Tendon Reflex: notes severe pain when testing DTR Patellar: 2/4 bilaterally. Achilles: 2/4 bilaterally. Low Back Provocative Testing: CARLOS test: positive bilaterally. Straight Leg Raise Test: positive L, negative R. Lumbar Facet Loading: Unable to assess, significant pain with slight extension. Sensation: Dermatomal sensation not formally tested. Grossly normal and symmetric unless otherwise specified. Gait: Intact, no sign of ataxia. Ambulates with assistance. IMAGING: LUMBAR SPINE MR WITHOUT CONTRAST. 06/17/2022 3:41 pm. Motion artifact. 5 [id number] lumbar type vertebral bodies are again noted and corroborated counting down from C2 on localizer sequence. For the purposes of this dictation, the L5-S1 disc space will be defined as axial series 8 and 9, images 10-11. Grade I anterolisthesis of L5 on S1. L2/L3, L3/L4, L4/L5, and L5/S1 spinous processes are closely apposed, which may represent Baastrup's disease. Convex right thoracolumbar curvature/scoliosis, incompletely evaluated. The lumbar spine is otherwise in anatomic alignment. T12-L1, L1-L2, L2-L3, L3-L4, L4-L5, and L5-S1 disc level mixed fibrovascular and fatty degenerative endplate changes. Bone marrow signal is otherwise heterogeneous, without additional STIR hyperintensity. Conus medullaris terminates at a low level, L2-L3 disc space. Cauda equina nerve root clumping is likely secondary to spinal canal stenoses (see below). The included spinal cord and cauda equina are otherwise normal. Filumterminale fibrolipoma is present (series 8, image 18). No discrete filum terminale thickening at L5-S1 is noted. No discrete taut filum terminale is noted. Disc desiccation and degenerative disk height loss are present at all lumbar levels. Left renal sinus cysts. Included abdominal/pelvic contents are otherwise grossly normal. Mild paraspinal muscle atrophy is present. T12-L1: Small disc bulge asymmetric to right, facet arthropathy, and ligamentum flavum hypertrophy produce no spinal canal stenosis. No neural foraminal narrowing. L1-L2: Small disc bulge asymmetric to right with left paracentral disc extrusion, facet arthropathy, and ligamentum flavum hypertrophy produce no spinal canal stenosis. Mild bilateral neural foraminal narrowing. L2-L3: Small symmetric disc bulge, facet arthropathy, and ligamentum flavum hypertrophy produce no spinal canal stenosis. Mild bilateral neural foraminal narrowing. L3-L4: Disc bulge asymmetric to left, facet arthropathy, and ligamentum flavum hypertrophy produce mild spinal canal stenosis. Moderate left and mild right neural foraminal narrowing. L4-L5: Small symmetric disc bulge, facet arthropathy, and ligamentum flavum hypertrophy produce mild spinal canal stenosis. Moderate right and mild left neural foraminal narrowing. Disc material contacts bilateral exiting L4 nerve roots in extraforaminal spaces. L5-S1: Anterolisthesis. Small disc bulge asymmetric to right, facet arthropathy, and ligamentum flavum hypertrophy produce mild spinal canal stenosis; however, epidural lipomatosis at this level results in additional moderate thecal sac narrowing. Posterior disc annular fissure. Severe right and moderate left neural foraminal narrowing. Disc material, lateral osteophyte, and ligamentum flavum hypertrophy compress exiting right L5 nerve root in neural foramen. Disc material contacts bilateral exiting L5 nerve roots in extraforaminal spaces. IMPRESSION: 1. Mild L3-L4, L4-L5, and L5-S1 spinal canal stenoses. No additional lumbar spinal canal stenosis. However, L5-S1 epidural lipomatosis results in additional moderate thecal sac narrowing. 2. Exiting right L5 nerve root compression in L5-S1 neural foramen. Nerve root contact at L4-L5 andL5-S1. Correlation with dermatomal symptom level recommended. 3. Conus medullaris terminates at a low level (L2-L3 disc space). Filum terminale fibrolipoma. However, no filum terminale thickening at L5-S1 is noted and no discrete taut filum terminale is noted. Nonetheless, correlation with tethered cord syndrome symptoms is recommended. 4. Multilevel neural foraminal narrowing, worst on right at L5-S1, where it is severe. 5. Grade I anterolisthesis of L5 on S1. 6. L2/L3, L3/L4, L4/L5, and L5/S1 spinous process close apposition, which may represent Baastrup's disease. 7. Convex right thoracolumbar curvature/scoliosis, incompletely evaluated. Weightbearing scoliosis x-ray may be performed for further evaluation. 8. T12-L1, L1-L2, L2-L3, L3-L4, L4-L5, and L5-S1 disc level mixed fibrovascular and fatty degenerative endplate changes. L5-S1 disc annular fissure. Fibrovascular degenerative endplate changes and annular fissures may be symptomatic. XR L SPINE COMPLETE-06/13/2022 9:30 am There is at least mild loss in height of L4 suspected, of indeterminate chronicity. There are significant multilevel degenerative changes, with high- grade intervertebral disc space loss from L3-L5 with bulky osteophytes. There is mild to moderate dextrocurvature of the lumbar spine in the coronal plane. A probable mild anterolisthesis of L5 on S1. Significant posterior facet disease. Degenerativechange between the spinous processes. Partially visualized significant left and moderate right hip arthrosis. Partially visualized at least mild degenerative change of the thoracic spine. Right upper quadrant surgical clips likely from cholecystectomy. Solidified fecal material throughout the colon. IMPRESSION Potential mild loss in height of L4, may be exaggerated by its obliquity as result of [id number] dextrocurvature of the lumbar spine. Significant multilevel degenerative changes, with high-grade disc space loss and bulky osteophytes from L3-L5. Significant posterior facet disease. Possible slight anterolisthesis of L5 on S1. Partially visualized degenerative changes of the thoracic spine and left greater than right hips. ASSESSMENT: Lumbar radicular pain, L LE Chronic pain syndrome Fibromyalgia PLAN: Progressive low back pain that radiates to L LE. Mild relief with conservative care. Neurologicallyintact. Although difficult exam to compete due to severe of pain, significant pain with light touch. Personally reviewed L spine MRI 06/17/22 - motion artifact, grade 1 listhesis L5/S1, mild to moderate central stenosis, epidural lipomatosis L5/S1, mid to moderate foraminal narrowing through out, con tact L nerve roots. Personally reviewed L spine xray 06/13/22 - L4 compression changes causing mild vertebral body height loss, DDD L3/4 thru L5/S1 with diffuse osteophytes and scoliotic curvature. Discussed VANESA using fluoroscopy. Risks including, but not limited to, bleeding, infection, worsening pain, failure to alleviate pain, nerve injury and possible steroid side effects were reviewed. 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 Due to severity and duration of symptoms, will schedule L interlaminar VANESA L4/5, significant epidural lipomatosis L5/S1. Follow up six weeks after procedure. Consider trial of cymbalta, will leave to PCP discretion. Significant intolerance to numerous medication classes, including gabapentin. Patience Gloria PA-C 09/17/2023 documented in this encounter Nursing Notes * Anna Adler LPN - 09/17/2023 10:05 AM EST Patient presents with low back and left leg pain [id number] No relief with baclofen or oral steroids x2 No PT MRI in chart from 2021 No hx of injections/surgery documented in this encounter Plan of Treatment Upcoming Encounters Date Type Department Care Team (Latest Contact Info) Description 09/25/2023 8:00 AM EST Hospital Encounter OR [facility], Operating Room [facility] [address] [place] [address] Mikey Quiñones DO [address] [place] [address] 09/25/2023 8:00 AM EST - 09/25/2023 8:25 AM EST Surgery OR [facility], Operating Room [facility] [address] [place] [phone] Mikey Quiñones DO [address] [place] [phone] INJECTION SPINE LUMBAR OR SACRAL 09/25/2023 10:30 AM EST Office Visit Orthopaedics [address] [phone] Jaime Mariano MD [address] [place] [address] 10/21/2023 1:40 PM EST Office Visit Family Medicine [address] [place] [phone] Miladis Hightower MD [address] [place] [address] [place] [address] 04/09/2024 10:00 AM EDT Imaging Radiology [address] [facility] [place] [address] 04/09/2024 10:30 AM EDT Imaging Radiology [facility] [address] [facility] [place] [address] Scheduled Orders Name Type Priority Associated Diagnoses Orde r Schedule INJECT DX/THER SUBSTANCE INTERLAMINAR LUMBAR/SACRAL W IMAGE GUIDE Procedures Routine Lumbar radicular pain Spinal stenosis of lumbar region with neurogenic claudication Expected: 09/24/2023, Expires: 10/17/2024 Scheduled Procedures Name Priority Associated Diagnoses Date/Ti [...] Not on filedocumented as of this encounter Visit Diagnoses Diagnosis Lumbar radicular pain- Primary Thoracic or lumbosacral neuritis or radiculitis, unspecified Spinal stenosis of lumbar region with neurogenic claudication Spinal stenosis, lumbar region, with neurogenic claudication Fibromyalgia Mylagia and myositis, unspecified Lumbar radiculopathy Thoracic or lumbosacral neuritis or radiculitis, unspecified documented in this encounter Advance Directives Healthcare Agents on File Name Relationship Healthcare Agent Relationshi p Communication Audrey Facer Friend Health Care Repr esentative (appointed verbally by patient or by statute hierarchy) Care Teams Band Instrument Repairer Relationship Specialty Start Date End Date Miladis Hightower MD [address] [place] [address] [place] [id number] PCP - General Family Medicine 10/07/17 documented as of this encounter
--- OUTSIDE RECORDS SUMMARY | 2023-09-27 04:49 | External Medical Summary | Summary of Care ---
Author Name Unknown Organization [facility] Address [address] [place] [address] Phone [phone] Care Team Providers Care Theater Projectionist Name Role Phone Miladis Hightower MD Primary Care Provide r Reason for Visit * Reason Onset Date Comments Med Request 08/19/2023 Encounter Details Date Type Department Care Team Description 08/19/2023 Telephone Family Medicine [address] [phone] Miladis Hightower MD [address] [place] [address] [place] [address] Med Request (/) Allergies Active Allergy [...] Date Resolved Date Neuritis of upper extremity 01/27/20232 COVID-19 virus infection 02/16/2021 021 Major depressive [...] as of this encounter Miscellaneous Notes * Addendum Note - Avery Cain MD - 08/29/2023 12:07 PM EDT Addended by: AVERY ESPINOZA on: 08/29/2023 12:07 PM Modules accepted: Orders * Telephone Encounter - Nely Jackman LPN - 08/29/2023 11:07 AM EDT Patient calling back, agreeable to try Tramadol. Pharmacy selected. * Telephone Encounter - Pau Rao CMA - 08/29/2023 10:31 AM EDT Left message to call [phone]. * Telephone Encounter - Avery Cain MD - 08/28/2023 2:50 PM EDT [...] advise patient. Thank you, Cecilia Ramirez CPhT Flash Drier Operator [facility] ([facility])(formerly telepharmacy) 08/19/2023,8:27 AM documented in this encounter Plan of Treatment Upcoming Encounters Date Type Specialty Care Team Description 09/17/2023 Office Visit Pain Medicine Patience Gloria PA-C [address] [place] [address] 09/25/2023 Office Visit Orthopedics Jaime Mariano MD [address] [place] [address] 10/21/2023 Office Visit Family Medicine Miladis Hightower MD [address] [place] [address] [place] [address] 04/09/2024 Imaging Radiology 04/09/2024 Imaging Radiology Scheduled [...] as of this encounter Visit Diagnoses Diagnosis Spinal stenosis of lumbar region without neurogenic claudication- Primary Spinal stenosis, lumbar region, without neurogenic claudication documented in this encounter Advance Directives Healthcare Agents on File Name Relationship Healthcare Agent Relationshi p Communication Audrey Facer Friend Health Care Repr esentative (appointed verbally by patient or by statute hierarchy) Care Teams Theater Projectionist Relationship Specialty Start Date End Date Miladis Hightower MD [address] [place] [address] [place] [id number] PCP - General Family Medicine 10/07/17 documented as of this encounter
--- OUTSIDE RECORDS SUMMARY | 2023-09-27 04:50 | External Medical Summary | Summary of Care ---
Author Name Unknown Organization [facility] Address [address] [place] [address] Phone [phone] Care Team Providers Care Buffet Attendant Name Role Phone Miladis Hightower MD Primary Care Provide r Reason for Visit * Reason Onset Date Comments Advice 08/18/2023 Encounter Details Date Type Department Care Team Description 08/18/2023 Telephone Orthopaedics [facility] [address] [place] [address] Jaime Mariano MD [address] [place] [address] Advice Allergies Active Allergy Reactions Severity Noted Date [...] as of this encounter (statuses as of 08/18/2023) Medications Medication Sig Dispensed Refills Start Date [...] as of this encounter (statuses as of 08/18/2023) Active Problems Problem Noted Date Dyslipidemia 06/29/2023 [...] as of this encounter (statuses as of 08/18/2023) Resolved Problems Problem Noted Date Resolved Date [...] as of this encounter (statuses as of 08/18/2023) Immunizations Name Administration Dates Next Due COVID-19 [...] encounter Miscellaneous Notes * Telephone Encounter - Sugey Pate LPN - 08/18/2023 4:27 PM EDT Called pt, advised of Dr Mariano' message. States she is already scheduled to see pain management 09/17/2023. * Telephone Encounter - Cecilia Denny - 08/18/2023 9:20 AM EDT Patient calling in stating she his having hip pain and sciatica. She stated she is currently takingprednisone (2nd round) and Baclofen with no relief in pain. Asking for advice on what she can do for the pain documented in this encounter Plan of Treatment Upcoming Encounters Date Type Specialty Care Team Description 09/17/2023 Office Visit Pain Medicine Juani, AMAYA Morin [address] [place] [address] 09/25/2023 Office Visit Orthopedics Jaime Mariano MD [address] [place] [address] 10/21/2023 Office Visit Family Medicine Miladis Hightower MD [address] [place] [address] [place] [address] 04/09/2024 Imaging Radiology 04/09/2024 Imaging Radiology Scheduled Procedures Name Priority Associated Diagnoses Date/Ti me ESOPHAGOGASTRODUODENOSCOPY ( EGD), FLEXIBLE, TRANSORAL, DIAGNOSTIC Recall Lundy esophagus Health Maintenance Due Date Last Done Comments Lundy's Esophagus Surveilance 1951 Albumin/Creatinine Ratio 1969 Cologuard 1996 Fecal Occult [...] Additional history exists DXA Scan 10/15/2024 10/15/2017 Lipid Panel 10/21/2027 10/21/2022, 07/11, 06/14/2019, Additional [...] patient or by statute hierarchy) Care Teams Buffet Attendant Relationship Specialty Start Date End Date Miladis Hightower MD [address] [place] [address] [place] [address] PCP - General Family Medicine 10/07/17 documented as of this encounter
--- OUTSIDE RECORDS SUMMARY | 2023-09-27 04:50 | External Medical Summary | Summary of Care ---
Author Name Unknown Organization [facility] Address [address] [place] [address] Phone [phone] Care Team Providers Care Orthotics Assistant Name Role Phone Miladis Hightower MD Primary Care Provide r Reason for Visit * Reason Onset Date Comments Advice 08/18/2023 Encounter Details Date Type Department Care Team Description 08/18/2023 Telephone Orthopaedics [facility] [address] [place] [address] Jaime Mariano MD [address] [place] [address] Advice Allergies Active Allergy Reactions Severity Noted [...] encounter Miscellaneous Notes * Telephone Encounter - Cecilia Denny - [...] AMAYA Morin [address] [place] [address] 09/25/2023 Office Visit Orthopedics Jaime Mariano MD [address] [place] [address] 10/21/2023 Office Visit Family Medicine Miladis Hightower MD [address] [place] [address] [place] [address] 04/09/2024 Imaging Radiology 04/09/2024 Imaging Radiology Scheduled [...] patient or by statute hierarchy) Care Teams Orthotics Assistant Relationship Specialty Start Date End Date Miladis Hightower MD [address] [place] [address] [place] [phone] PCP - General Family Medicine 10/07/17 documented as of this encounter
--- OUTSIDE RECORDS SUMMARY | 2023-09-27 04:50 | External Medical Summary | Summary of Care ---
Author Name Unknown Organization [facility] Address [address] [place] [address] Phone [phone] Care Team Providers Care Building Manager Name Role Phone Miladis Hightower MD Primary Care Provide r Reason for Visit * Reason Onset Date Comments Advice 08/18/2023 Encounter Details Date Type Department Care Team Description 08/18/2023 Telephone Orthopaedics [facility] [address] [place] [address] Jaime Mariano MD [address] [place] [address] Advice Allergies Active Allergy Reactions Severity Noted [...] AMAYA Morin [address] [place] [address] 09/25/2023 Office Visit Orthopedics Jaime Mariano MD [address] [place] [address] 10/21/2023 Office Visit Family Medicine Miladis Hightower MD [address] [place] [address] [place] [address] 04/09/2024 Imaging Radiology 04/09/2024 Imaging Radiology Scheduled [...] patient or by statute hierarchy) Care Teams Building Manager Relationship Specialty Start Date End Date Miladis Hightower MD [address] [place] [address] [place] [phone] PCP - General Family Medicine 10/07/17 documented as of this encounter
--- OUTSIDE RECORDS SUMMARY | 2023-09-27 04:50 | External Medical Summary | Summary of Care ---
Author Name Unknown Organization [facility] Address [address] [place] [address] Phone [phone] Care Team Providers Care Worm Packer Name Role Phone Miladis Hightower MD Primary Care Provide r Reason for Visit * Reason Onset Date Comments case management 07/29/2023 Encounter Details Date Type Department Care Team Description 07/29/2023 Tire Sorter Telephone Care Coordination [address] [place] [address] Ilene Carver, EMANUEL [address] [place], [place] [id number] case management Allergies Active Allergy Reactions Severity Noted Date [...] as of this encounter (statuses as of 07/29/2023) Medications Medication Sig Dispensed Refills Start Date [...] Active Amitriptyline HCl 25 MG Oral Tablet (Elavil)Indications: Fibromyalgia TAKE TWO TABLETS BY MOUTH AT BEDIME 180 Tablet 3 05/05/2023 4 Active Fluticasone-Salmeter ol 250-50 MCG/ACT Inhalation Aerosol Powder Breath Activated (Advair Diskus) INHALE ONE PUFF BY MOUTH TWICE A DAY IN THE MORNING AND BEFORE BEDTIME 180 Each 3 04/28/2023 4 Active Furosemide 20 MG Oral Tablet (Lasix)Indications:P eripheral edema TAKE ONE TABLET BY MOUTH EVERY DAY NEEDED FOR EDEMA 90 Tablet 0 04/24/2023 4 Active Metoprolol Succinate ER 25 MG Oral Tablet Extended Release 24 Hour (toPROL XL) TAKE ONE TABLET BY MOUTH EVERY MORNING 90 Tablet 1 04/07/2023 4 Active Albuterol Sulfate HFA 108 (90 Base) MCG/ACT Inhalation Aerosol SolutionIndications: Asthma, allergic, mild intermittent, uncomplicated INHALE 1 PUFF [...] DAY NEEDED 270 Tablet 0 07/16/2023 Active predniSONE 10 MG Oral Tablet (Deltasone)Indicatio ns:Spinal stenosis of lumbar region without neurogenic claudication Take 5 tabs for 2 days, 4 tabs for 2 days, 3 tabs for 2 days, 2 tabs for 2 days 1 tab for 2 days 30 Tablet 0 07/24/2023 Active Baclofen 10 MG Oral Tablet (Lioresal)Indication s:Spinal stenosis of lumbar region without neurogenic claudication Take 1 Tablet by mouth in the morning and 1 Tablet before bedtime. 20 Tablet 0 07/24/2023 Active Acetaminophen ER 650 MG Oral Tablet Extended Release (Tylenol 8 Hour) Take 1 Tablet by mouth every 8 hours as needed. 0 Active Dicyclomine HCl 20 MG Oral Tablet (Bentyl)Indications: Diarrhea, unspecified type,Irritable bowel syndrome with diarrhea Take 1 Tablet (20 mg) by mouth 4 times a day as needed (stomach pain and diarrhea). For abdominal pain 120 Tablet 2 10/07/2022 3 Discontinue d(Medicatio n List Clean Up) Ondansetron HCl 4 MG Oral TabletIndications:Na usea and vomiting, unspecified vomiting type Take 1 Tablet (4 mg) by mouth every 6 hours as needed for Nausea. 30 Tablet 0 10/07/2022 3 Discontinue d(Medicatio n List Clean Up) Dextromethorphan-gua iFENesin 10-100 MG/5ML Oral Liquid (Robitussin DM)Indications:Subac [place] cough Take 5 mL by mouth every 4 hours as needed for Cough. 120 mL 5 06/30/2023 3 Discontinue d(Medicatio n List Clean Up) documented as of this encounter (statuses as of 07/29/2023) Active Problems Problem Noted Date Dyslipidemia 06/29/2023 [...] as of this encounter (statuses as of 07/29/2023) Resolved Problems Problem Noted Date Resolved Date [...] as of this encounter (statuses as of 07/29/2023) Immunizations Name Administration Dates Next Due COVID-19 mRNA, LNP-s, No Pre serve, 2-Dose Series (Moderna) 03/16/2021,02/09/2021 COVID-19, mRNA, LNP-s, PF, B ooster, 100mcg/0.5mg (Moderna) 11/07/2021 H1N1 2009 Influenza, IM 11/08/2009 Pneumococcal Conjugate Vacc, 13 Valent (Prevnar) 12/08/2017 Pneumococcal Polysaccharide PPV23 (Pneumovax) 02/03/2019 Season Influenza, Quad, PF, Adjuvanted, 65+ Yrs, IM (FLUAD) 09/04/2020 Seasonal Influenza, PF, 6 mo ns & Above, IM , (Flulaval) 09/11/2022,09/16/2017 Seasonal Influenza, Quadriva lent Hd (Fluzone Hd) [...] encounter Miscellaneous Notes * Telephone Encounter - Ilene Carver RN - 07/29/2023 11:51 AM EDT Tire Sorter Progress Note: SNP assessment Date: 07/29/23 Assigned Patient Tier: 4 Connected with patient via phone. Verified patient name/. Advised patient that call is being recorded for quality and training purposes. Assessment: Pt. noted the following: Patient lives in alone in an apartment. Denies any sob. Notes dry cough from allergies. Is currently taking prednisone taper for sciatica. Does not use any assistive devices for ambulation. Denies falls. Patient reports independent with care. Friend drives. Also set up [employer] ride. Pharmacy delivers. Will get flu vaccine. Covid x3. Follows with eye doctor. Recently had cataracts removed. Reports had a few episodes of CP "due to the stress." Denies presently. Follows with cardiology. States she has to call to schedule an appt. Reports friend's son tragically killed a few weeks ago. Discussed and declines referral. ACP discussed. Patient reports has papers "just has to fill them out." HCA verified. Denies food/financial needs. Medications reviewed. Uses OTC card. OTC benefit discussed. Encouraged to obtain BP cuff for home monitoring. Reinforced s/s to report. Patient verbalized understanding and agrees. Upcoming appts reviewed. Did you receive an alert for an annual wellness visit? No Is this call for a hospital, [place] [facility] or rehab facility discharge to home? No Medication Reconciliation: Medication Reconciliation completed: yes Review of Current goals: Discussed the following patient-centered CM goals with the patient during this discussion: -*Personal Patient Goal: Help friend with grief. -Status: On Track States she helps her friend. -Pain: Patient will have pain well managed -Status: On Track Pain smap sent. COPD Patient: No CHF Patient: NO CM Plan: Reviewed 3 Red Flags with patient. Advised to call CM with any of the following: Red Flag 1: HTN, Red Flag 2: pain, or Red Flag 3: fall Remote Patient Monitoring: At this time, RPM not offered/considered for patient due to n/a. Plan for Future Contacts: Plan to follow up 11-12 months to check progress on the following goals/needs . Planned contacts from the following parties will occur this week: N/A as additional contacts per workflow. Advancement/Closure Plan: Keep patient at current Tier with reassessment per workflow. Patient provided CM contact information and encouraged to call with any changes in condition. SNP Member? Yes Is Provider in agreement with POC? Yes PCP Notified of enrollment in CM/HM program: Yes Is Provider in agreement with POC? Yes Ilene Carver RN Outpatient Case Management documented in this encounter Plan of Treatment Upcoming Encounters Date Type Specialty Care Team Description 09/25/2023 Office Visit Orthopedics Jaime Mariano MD [address] [place] [address] 10/21/2023 Office Visit Family Medicine Miladis Hightower MD [address] [place] [address] [place] [address] 04/09/2024 Imaging Radiology 04/09/2024 Imaging Radiology Scheduled [...] 2021 2011, 05/12/2008 Colorectal Cancer Screening 2021 COVID-19 Vaccine (4 - Moderna series) 01/02/2022 11/07/2021, 03/16/2021, 02/09/2021 Depression Screening 11/07/2022 11/07/2021 Influenza Vaccine (FLU shot) (#1) 2023 09/11/2022, [...] patient or by statute hierarchy) Care Teams Worm Packer Relationship Specialty Start Date End Date Miladis Hightower MD [address] [place] [address] [place] [address] PCP - General Family Medicine 10/07/17 documented as of this encounter
--- OUTSIDE RECORDS SUMMARY | 2023-09-27 04:50 | External Medical Summary | Summary of Care ---
Author Name Unknown Organization [facility] Address [address] [place] [address] Phone [phone] Care Team Providers Care Licensed Home Inspector Name Role Phone Miladis Hightower MD Primary Care Provide r Reason for Visit * Reason Onset Date Comments Med Request 08/19/2023 Encounter Details Date Type Department Care Team Description 08/19/2023 Telephone Family Medicine [address] [phone] Miladis Hightower MD [address] [place] [address] [place] [address] Med Request (/) Allergies Active Allergy [...] as of this encounter (statuses as of 08/19/2023) Medications Medication Sig Dispensed Refills Start Date [...] as of this encounter (statuses as of 08/19/2023) Active Problems Problem Noted Date Dyslipidemia 06/29/2023 [...] as of this encounter (statuses as of 08/19/2023) Resolved Problems Problem Noted Date Resolved Date [...] as of this encounter (statuses as of 08/19/2023) Immunizations Name Administration Dates Next Due COVID-19 [...] Miscellaneous Notes * Telephone Encounter - Cecilia Ramirez CPhT - 08/19/2023 8:25 AM EDT Patient calling she stated she asked her Orthopedic for something for pain until seen by pain management but he refused. Patient stated she cannot walk the pain is so severe. She is asking for something for pain until seen. Please advise patient. Thank you, Cecilia Ramirez CPhT Sea Shell Gatherer [facility] ([facility])(formerly telepharmacy) 08/19/2023,8:27 AM documented in this encounter Plan of Treatment Upcoming Encounters Date Type Specialty Care Team Description 09/17/2023 Office Visit Pain Medicine Patience Gloria PA-C [address] [place] [address] 09/25/2023 Office Visit Orthopedics Jaime Mariano MD [address] [place] [address] 10/21/2023 Office Visit Family Medicine Miladis Hightower MD [address] [place] [address] [place] [address] 04/09/2024 Imaging Radiology 04/09/2024 Imaging Radiology Scheduled [...] patient or by statute hierarchy) Care Teams Licensed Home Inspector Relationship Specialty Start Date End Date Miladis Hightower MD [address] [place] [address] [place] [phone] PCP - General Family Medicine 10/07/17 documented as of this encounter
--- OUTSIDE RECORDS SUMMARY | 2023-09-27 04:50 | External Medical Summary | Summary of Care ---
Author Name Unknown Organization [facility] Address [address] [place] [address] Phone [phone] Care Team Providers Care Customer Contact Representative Name Role Phone Miladis Hightower MD Primary Care Provide r Reason for Visit * Reason Onset Date Comments Med Request 08/11/2023 Encounter Details Date Type Department Care Team Description 08/11/2023 Telephone Family Medicine [address] [phone] Services, Scheduling [address] [place] [address] Med Request Allergies Active Allergy Reactions Severity Noted Date [...] as of this encounter (statuses as of 08/11/2023) Medications Medication Sig Dispensed Refills Start Date End Date Status aspirin 81 MG chewable tablet Take 1 Tablet by mouth in the morning. with food.. 100 Tab 5 6 Active Levocetirizine Dihydrochloride 5 MG Oral Tablet Take 1 Tablet by mouth every evening. 0 Active Simethicone 80 MG Oral Tablet Chewable Take 1 Tablet by mouth every 6 hours as needed for Gas. 0 Active Amitriptyline HCl 25 MG Oral Tablet (Elavil)Indications :Fibromyalgia TAKE TWO TABLETS BY MOUTH AT BEDIME 180 Tablet 3 3 05/04/20 24 Active Fluticasone-Salmete rol 250-50 MCG/ACT Inhalation Aerosol Powder Breath Activated (Advair Diskus) INHALE ONE PUFF BY MOUTH TWICE A DAY IN THE MORNING AND BEFORE BEDTIME 180 Each 3 3 04/27/20 24 Active Furosemide 20 MG Oral Tablet (Lasix)Indications: Peripheral edema TAKE ONE TABLET BY MOUTH EVERY DAY NEEDED FOR EDEMA 90 Tablet 0 3 04/23/20 24 Active Metoprolol Succinate ER 25 MG Oral Tablet Extended Release 24 Hour (toPROL XL) TAKE ONE TABLET BY MOUTH EVERY MORNING 90 Tablet 1 3 04/06/20 24 Active Albuterol Sulfate HFA 108 (90 Base) MCG/ACT Inhalation Aerosol SolutionIndications :Asthma, allergic, mild intermittent, uncomplicated INHALE 1 PUFF BY MOUTH EVERY 6 HOURS NEEDED FOR WHEEZING 54 g 1 3 05/30/20 24 Active RABEprazole Sodium 20 MG Oral Tablet Delayed Release TAKE 1 TABLET BY MOUTH IN THE IN THE MORNING AND 1 TABLET AT BEDTIME 200 Tablet 1 3 06/25/20 24 Active Meclizine HCl 25 MG Oral Tablet (Antivert) TAKE ONE TABLET BY MOUTH THREE TIMES A DAY NEEDED 270 Tablet 0 3 Active Acetaminophen ER 650 MG Oral Tablet Extended Release (Tylenol 8 Hour) Take 1 Tablet by mouth every 8 hours as needed. 0 Active Baclofen 10 MG Oral Tablet (Lioresal)Indicatio ns:Spinal stenosis of lumbar region without neurogenic claudication Take 1 Tablet by mouth in the morning and 1 Tablet before bedtime. 20 Tablet 0 3 Active predniSONE 20 MG Oral Tablet (Deltasone) 1 tab 3 times a day for 3 days, then 1 tab 2 times a day for 3 days, then 1 tab daily for 3 days 18 Tablet 0 3 Active predniSONE 10 MG Oral Tablet (Deltasone)Indicati ons:Spinal stenosis of lumbar region without neurogenic claudication Take 5 tabs for 2 days, 4 tabs for 2 days, 3 tabs for 2 days, 2 tabs for 2 days 1 tab for 2 days 30 Tablet 0 3 08/11/20 23 Discontinued Baclofen 10 MG Oral Tablet (Lioresal)Indicatio ns:Spinal stenosis of lumbar region without neurogenic claudication Take 1 Tablet by mouth in the morning and 1 Tablet before bedtime. 20 Tablet 0 3 08/11/20 23 Discontinued(Ref ill) documented as of this encounter (statuses as of 08/11/2023) Active Problems Problem Noted Date Dyslipidemia 06/29/2023 [...] as of this encounter (statuses as of 08/11/2023) Resolved Problems Problem Noted Date Resolved Date [...] as of this encounter (statuses as of 08/11/2023) Immunizations Name Administration Dates Next Due COVID-19 [...] encounter Miscellaneous Notes * Telephone Encounter - Nuha Raymond RN - 08/11/2023 3:35 PM EDT Message left for pt * Telephone Encounter - Miladis Hightower MD - 08/11/2023 3:15 PM EDT Sent a higher prednisone taper and refilled Baclofen * Telephone Encounter - GABRIELLE Barba - 08/11/2023 8:46 AM EDT Pt calling regarding her Sciatica; she has been on muscle relaxer's and prednisone previous; it is now flared up again, she has been taking Tylenol that is not helping with the pain. She is not able to get into Pain Mgmt until Nov. Is there anything that can be sent in for pt to help her with the pain documented in this encounter Plan of Treatment Upcoming Encounters Date Type Specialty Care Team Description 09/17/2023 Office Visit Pain Medicine Patience Gloria PA-C [address] [place] [address] 09/25/2023 Office Visit Orthopedics Jaime Mariano MD [address] [place] [address] 10/21/2023 Office Visit Family Medicine Miladis Hightower MD [address] [place] [address] [place] [address] 04/09/2024 Imaging Radiology 04/09/2024 Imaging Radiology Scheduled [...] stenosis of lumbar region without neurogenic claudication Spinal stenosis, lumbar region, without neurogenic claudication documented in this encounter Advance Directives Healthcare Agents on File Name Relationship Healthcare Agent Relationshi p Communication Audrey Facer Friend Health Care Repr esentative (appointed verbally by patient or by statute hierarchy) Care Teams Customer Contact Representative Relationship Specialty Start Date End Date Miladis Hightower MD [address] [place] [address] [place] [phone] PCP - General Family Medicine 10/07/17 documented as of this encounter
--- OUTSIDE RECORDS SUMMARY | 2023-09-27 04:51 | External Medical Summary | Summary of Care ---
Author Name Unknown Organization [facility] Address [address] [place] [address] Phone [phone] Care Team Providers Care Marketing Underwriter Name Role Phone Miladis Hightower MD Primary Care Provide r Reason for Visit * Reason Comments Acute Sinus yellow dischar ge. Cough Encounter Details Date Type Department Care Team Description 06/07/2023 Office Visit Family Practice [facility] [address] [place] [address] Halley Bassett PA-C [address] [place] [address] Acute maxillary sinusitis, recurrence not specified*; Essential hypertension with goal blood pressure less than 140/90 Allergies Active Allergy Reactions Severity Noted Date [...] as of this encounter (statuses as of 06/07/2023) Medications Medication Sig Dispensed Refills Start Date End Date Status aspirin 81 MG chewable tablet Take 1 Tablet by mouth in the morning. with food.. 100 Tab 5 06/03/2016 Active acetaminophen (TYLENOL) 325 MG Tablet Take 2 Tablets by mouth every 6 hours as needed for Pain or Fever. 100 Tab 0 06/03/2016 Active Levocetirizine Dihydrochloride 5 MG Oral Tablet Take 1 Tablet by mouth every evening. 0 Active Simethicone 80 MG Oral Tablet Chewable Take 1 Tablet by mouth every 6 hours as needed for Gas. 0 Active Dicyclomine HCl 20 MG Oral Tablet (Bentyl)Indications:D iarrhea, unspecified type,Irritable bowel syndrome with diarrhea Take 1 Tablet (20 mg) by mouth 4 times a day as needed (stomach pain and diarrhea). For abdominal pain 120 Tablet 2 10/07/2022 Active Additional Information Patient not taking.Reported on 06/07/2023 Ondansetron HCl 4 MG Oral TabletIndications:Kobi sea and vomiting, unspecified vomiting type Take 1 Tablet (4 mg) by mouth every 6 hours as needed for Nausea. 30 Tablet 0 10/07/2022 Active Amitriptyline HCl 25 MG Oral Tablet [...] MORNING 90 Tablet 1 04/07/2023 4 Active Meclizine HCl 25 MG Oral Tablet (Antivert) TAKE ONE TABLET BY MOUTH THREE TIMES A DAY NEEDED 90 Tablet 3 02/27/2023 4 Active RABEprazole Sodium 20 MG Oral Tablet Delayed Release TAKE 1 TABLET BY MOUTH IN THE IN THE MORNING AND 1 TABLET AT BEDTIME 200 Tablet 1 01/02/2023 4 Active Albuterol Sulfate HFA 108 (90 Base) MCG/ACT Inhalation Aerosol SolutionIndications:A sthma, allergic, mild intermittent, uncomplicated INHALE 1 PUFF BY MOUTH EVERY 6 HOURS NEEDED FOR WHEEZING 54 g 1 05/31/2023 4 Active Amoxicillin-Pot Clavulanate 875-125 MG Oral Tablet (Augmentin)Indication s:Acute maxillary sinusitis, recurrence not specified Take 1 Tablet by mouth in the morning and 1 Tablet before bedtime. Do all this for 10 days. 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 Insomnia 06/19/2005 Overview: ICD-10 update of inactive term Dyslipidemia, goal LDL below 130 002 Heartburn Fibromyalgia Irritable bowel syndrome Migraine with aura and without status mi grainosus, not intractable Essential hypertension with goal blood p ressure less than 140/90 Mitral valve prolapse documented as of this encounter (statuses as of 06/07/2023) Resolved Problems Problem Noted Date Resolved Date COVID-19 virus infection 02/16/2021 021 Major depressive disorder, single episode, unspe cified 09/04/2020 03/26/2021 Extrinsic asthma 12/08/2017 12/08/2017 Diverticulitis of colon 05/16/2010 06/03/20 16 Intractable migraine 03/16/2004 06/03/2016 Overview: ICD-10 update of inactive term EXT ASTHMA W-O STAT ASTH 01/29/2 018 Major depressive disorder 2015 Overview: ICD-10 update of inactive term documented as of this encounter (statuses as of 06/07/2023) Immunizations Name Administration Dates Next Due COVID-19 mRNA, LNP-s, No Pre serve, 2-Dose Series (Moderna) 03/16/2021,02/09/2021 Covid-19 Mrna, Lnp-s, No Pre serve, Booster (Moderna) 11/07/2021 H1N1 2009 Influenza, IM 11/08/2009 Pneumococcal Conjugate Vacc, 13 Valent (Prevnar) 12/08/2017 Pneumococcal Polysaccharide PPV23 (Pneumovax) 02/03/2019 Seasonal Influenza, Quadriva lent Hd (Fluzone Hd) 09/10/2021 Seasonal Influenza, Quadriva lent, No Preserve, 6 Mons & Above, IM 09/11/2022,09/16/2017 Seasonal Influenza, Quadriva lent, No Preserve, Adjuvanted, 65+ Yrs, IM 09/04/2020 Seasonal Influenza, Split, I IV3, No Preserve, [...] on file documented as of this encounter Last Filed Vital Signs Vital Sign Reading Time Taken Comments Blood Pressure 110/70 06/07/2023 2:23 PM EDT Pulse 75 06/07/2023 2:23 PM EDT Temperature 36.6 C (97.8 F) 06/07/2023 2:23 PM ED T Respiratory Rate 18 06/07/2023 2:23 PM EDT Oxygen Saturation 97% 06/07/2023 2:23 PM EDT Inhaled Oxygen Concentration - - Weight 70.4 kg (155 lb 4.8 oz) 06/07/2023 2:23 P M EDT Height - - Body Mass Index 30.33 04/24/2023 11:07 AM EDT documented in this encounter Progress Notes * Halley Bassett PA-C - 06/07/2023 2:43 PM EDT Images from the original note were not included. History of Present Illness Rosalinda Breen is a 72 year old female that presents for Acute (Sinus yellow discharge. Cough) Patient is a 72 year old female who presents with sinus symptoms for 4-5 days. Her symptoms includeear discomfort, nasal congestion, pn drip, sore throat, cough/dry, chills Tried robitussin Physical Exam Vitals: 06/07/23 1423 Temp: 36.6 C (97.8 F) Pulse: 75 Resp: 18 SpO2: 97% BP: 110/70 BP Readings from Last 3 Encounters: 06/07/23 110/70 04/24/23 116/74 03/05/23 118/70 Wt Readings from Last 3 Encounters: 06/07/23 70.4 kg (155 lb 4.8 oz) 04/24/23 70.8 kg (156 lb) 03/05/23 73.2 kg (161 lb 6.4 oz) General: alert, healthy, no distress, well nourished, well developed and cooperative Head: Normocephalic, No masses, lesions, tenderness or abnormalities Eye Exam: PERRLA, extraocular movements intact, conjunctiva are pink and non- injected, sclera clear Ears: External ears normal, Canals clear, TM's Normal Nose: purulent rhinorrhea, mucosal edema, mucosal erythema Oropharynx: no exudate, lips, buccal mucosa, and tongue normal, mucous membranes are moist, mild erythema and post nasal drip Neck: supple, no adenopathy, no bruits, thyroid normal size, non-tender, without nodularity Heart: regular rate & rhythm, no murmur and no gallops Lungs: chest symmetric with normal AP diameter, no chest deformities noted, normal respiratory rateand rhythm, no chest wall tenderness, diaphragmatic excursion normal, lungs clear to auscultation I have reviewed the following results: None Assessment and Plan Acute maxillary sinusitis, recurrence not specified (Primary) - Amoxicillin-Pot Clavulanate 875-125 MG Oral Tablet (Augmentin); Take 1 Tablet by mouth in the morning and 1 Tablet before bedtime. Do all this for 10 days. Essential hypertension with goal blood pressure less than 140/90 Wrap-Up Time: I spent a total of 20-29 minutes (exact time 26 mins) on the date of service in preparation, delivery, and documentation of the care provided to Rosalinda Breen excluding any time spent in the performance of separately billed services. documented in this encounter Nursing Notes * Omayra Gant LPN - 06/07/2023 2:19 PM EDT Chief Complaint Patient presents with Acute Sinus yellow discharge. Cough documented in this encounter Plan of Treatment Upcoming Encounters Date Type Specialty Care Team Description 06/24/2023 Office Visit Orthopedics Jaime Mariano MD [address] [place] [address] 10/21/2023 Office Visit Family Medicine Miladis Hightower MD [address] [place] [address] [place] [address] 04/09/2024 Imaging Radiology 04/09/2024 Imaging Radiology Scheduled [...] Moderna series) 01/02/2022 11/07/2021, 03/16/2021, 02/09/2021 Depression Screening, Annual for Pts 12 and Over 11/07/2022 11/07/2021 Influenza Vaccine (FLU shot) (#1) [...] as of this encounter Visit Diagnoses Diagnosis Acute maxillary sinusitis, recurrence not specified- Primary Essential hypertension with goal blood pressure less than 140/90 documented in this encounter Care Teams Marketing Underwriter Relationship Specialty Start Date End Date Miladis Hightower MD [address] [place] [address] [place] [address] PCP - General Family Medicine 10/07/17 documented as of this encounter
--- OUTSIDE RECORDS SUMMARY | 2023-09-27 04:51 | External Medical Summary | Summary of Care ---
Author Name Unknown Organization [facility] Address [address] [place] [address] Phone [phone] Care Team Providers Care Wool Classer Name Role Phone Miladis Hightower MD Primary Care Provide r Reason for Visit * Reason Onset Date Comments Medication Refill 06/19/2023 Encounter Details Date Type Department Care Team Description 06/19/2023 Refill Family [address] [phone] Miladis Hightower MD [address] [place], [place] [address] [id number] Essential hypertension with goal blood pressure less [...] as of this encounter (statuses as of 06/19/2023) Medications Medication Sig Dispensed Refills Start Date [...] on 06/07/2023 Ondansetron HCl 4 MG Oral TabletIndications:Na usea and vomiting, unspecified vomiting type Take 1 Tablet (4 mg) by mouth every 6 hours as needed for Nausea. 30 Tablet 0 10/07/2022 Active Amitriptyline HCl 25 MG Oral Tablet (Elavil)Indications: Fibromyalgia TAKE TWO TABLETS BY MOUTH AT BEDIME 180 Tablet 3 05/05/2023 05/04/20 24 Active Fluticasone-Salmeter ol 250-50 MCG/ACT Inhalation Aerosol Powder Breath Activated (Advair Diskus) INHALE ONE PUFF BY MOUTH TWICE A DAY IN THE MORNING AND BEFORE BEDTIME 180 Each 3 04/28/2023 04/27/20 24 Active Furosemide 20 MG Oral Tablet (Lasix)Indications:P eripheral edema TAKE ONE TABLET BY MOUTH EVERY DAY NEEDED FOR EDEMA 90 Tablet 0 04/24/2023 04/23/20 24 Active Metoprolol Succinate ER 25 MG Oral Tablet Extended Release 24 Hour (toPROL XL) TAKE ONE TABLET BY MOUTH EVERY MORNING 90 Tablet 1 04/07/2023 04/06/20 24 Active Meclizine HCl 25 MG Oral Tablet (Antivert) TAKE ONE TABLET BY MOUTH THREE TIMES A DAY NEEDED 90 Tablet 3 02/27/2023 02/27/20 24 Active RABEprazole Sodium 20 MG Oral Tablet Delayed Release TAKE 1 TABLET BY MOUTH IN THE IN THE MORNING AND 1 TABLET AT BEDTIME 200 Tablet 1 01/02/2023 01/02/20 24 Active Albuterol Sulfate HFA 108 (90 Base) MCG/ACT Inhalation Aerosol SolutionIndications: Asthma, allergic, mild intermittent, uncomplicated INHALE 1 PUFF BY MOUTH EVERY 6 HOURS NEEDED FOR WHEEZING 54 g 1 05/31/2023 05/30/20 24 Active Metoprolol Succinate ER 25 MG Oral Tablet Extended Release 24 Hour (toPROL XL)Indications:Essen tial hypertension with goal blood pressure less than 140/90 Take 1 Tablet by mouth in the morning. 100 Tablet 1 06/18/2023 Active Metoprolol Succinate ER 25 MG Oral Tablet Extended Release 24 Hour (toPROL XL)Indications:Essen tial hypertension with goal blood pressure less than 140/90 Take 1 Tablet by mouth in the morning. 7 Tablet 0 06/19/2023 06/19/20 23 Discontinu ed(Refill) documented as of this encounter (statuses as of 06/19/2023) Active Problems Problem Noted Date Asthma, allergic, [...] as of this encounter (statuses as of 06/19/2023) Resolved Problems Problem Noted Date Resolved Date COVID-19 virus infection 02/16/2021 021 Major depressive disorder, single episode, unspe cified 09/04/2020 03/26/2021 Extrinsic asthma 12/08/2017 12/08/2017 Diverticulitis of colon 05/16/2010 06/03/20 16 Intractable migraine 03/16/2004 06/03/2016 Overview: ICD-10 update of inactive term EXT ASTHMA W-O STAT ASTH 018 Major depressive disorder 2015 Overview: ICD-10 update of inactive term documented as of this encounter (statuses as of 06/19/2023) Immunizations Name Administration Dates Next Due COVID-19 [...] encounter Miscellaneous Notes * Telephone Encounter - Yue Roman [facility] - 06/19/2023 2:38 PM EDTNo prescriptions requested or ordered in this encounter * Telephone Encounter - Yue Roman [facility] - 06/19/2023 2:37 PM EDT Short supply sent to [id number] [address] [facility] as requested to hold patient until Mail Order is received. Removed short supply order from med list once verified rx was sent/received at the pharmacy to not have duplicates on med list. Thank you, Yue Roman, PharmD, SONIA Clinical Pharmacist [facility] ([facility] (formerly [facility]) 06/19/23 2:37 PM [phone] * Telephone Encounter - Ingrid Galeana CPhT - 06/19/2023 1:51 PM EDT Pt calling to request short supply for Metoprolol ER 25mg until mail order arrives. Please review and approve if appropriate. Pt is out of medication Thank you, Ingrid Galeana Waiter/Waitress [employer] [facility] ([facility]) 06/19/2023, 1:52 PM Pending Prescriptions: Disp Refills Metoprolol Succinate ER 25 MG Oral Tablet*7 Tabl*0 Sig: Take 1 Tablet by mouth in the morning. Last Visit: 04/24/2023 (in office), Visit date not found (telemedicine) 10/21/2023 Thank you, Ingrid Galeana Waiter/Waitress [employer] [facility] 06/19/2023, 1:52 PM documented in this encounter Plan of Treatment Upcoming Encounters Date Type Specialty Care Team Description 06/24/2023 Office Visit Orthopedics Jaime Mariano MD [address] [place] [address] 10/21/2023 Office Visit Family Medicine Miladis Hightower MD [address] [place] [address] [place] [id number] 04/09/2024 Imaging Radiology 04/09/2024 Imaging Radiology Scheduled [...] as of this encounter Visit Diagnoses Diagnosis Essential hypertension with goal blood pressure less than 140/90 documented in this encounter Care Teams Wool Classer Relationship Specialty Start Date End Date Miladis Hightower MD [address] [place] [address] [place] [address] PCP - General Family Medicine 10/07/17 documented as of this encounter
--- OUTSIDE RECORDS SUMMARY | 2023-09-27 04:51 | External Medical Summary | Summary of Care ---
Author Name Unknown Organization [facility] Address [address] [place] [address] Phone [phone] Care Team Providers Care Provider Scribe Name Role Phone Miladis Hightower MD Primary Care Provide r Reason for Visit * Reason Comments Cold Symptoms Pt c/o cough and los s of voice. Pt states she did have diarrhea yesterday. Pt has had cough for the past 2 weeks Encounter Details Date Type Department Care Team Description 06/30/2023 Office Visit Family [facility] [address] [place] [address] Phill Bui MD [address] [place] [address] Subacute cough* Allergies Active Allergy Reactions Severity Noted Date [...] as of this encounter (statuses as of 06/30/2023) Medications Medication Sig Dispensed Refills Start Date [...] Active Dicyclomine HCl 20 MG Oral Tablet (Bentyl)Indications :Diarrhea, unspecified type,Irritable bowel syndrome with diarrhea Take 1 Tablet (20 mg) by mouth 4 times a day as needed (stomach pain and diarrhea). For abdominal pain 120 Tablet 2 2 Active Ondansetron HCl 4 MG Oral TabletIndications:N ausea and vomiting, unspecified vomiting type Take 1 Tablet (4 mg) by mouth every 6 hours as needed for Nausea. 30 Tablet 0 2 Active Amitriptyline HCl 25 MG Oral Tablet [...] 90 Tablet 1 3 04/06/20 24 Active Meclizine HCl 25 MG Oral Tablet (Antivert) TAKE ONE TABLET BY MOUTH THREE TIMES A DAY NEEDED 90 Tablet 3 3 02/27/20 24 Active Albuterol Sulfate HFA 108 (90 [...] 200 Tablet 1 3 06/25/20 24 Active Amoxicillin-Pot Clavulanate 875-125 MG Oral Tablet (Augmentin) Take 1 Tablet by mouth in the morning and 1 Tablet before bedtime. Do all this for 10 days. 20 Tablet 0 3 07/10/20 23 Active Dextromethorphan-gu aiFENesin 10-100 MG/5ML Oral Liquid (Robitussin DM)Indications:Suba cute cough Take 5 mL by mouth every 4 hours as needed for Cough. 120 mL 5 3 Active acetaminophen (TYLENOL) 325 MG Tablet Take 2 Tablets by mouth every 6 hours as needed for Pain or Fever. 100 Tab 0 6 06/30/20 23 Discontinued(Tiara vick) Metoprolol Succinate ER 25 MG Oral Tablet Extended Release 24 Hour (toPROL XL)Indications:Esse ntial hypertension with goal blood pressure less than 140/90 Take 1 Tablet by mouth in the morning. 100 Tablet 1 3 06/30/20 23 Discontinued documented as of this encounter (statuses as of 06/30/2023) Active Problems Problem Noted Date Dyslipidemia 06/29/2023 [...] as of this encounter (statuses as of 06/30/2023) Resolved Problems Problem Noted Date Resolved Date [...] as of this encounter (statuses as of 06/30/2023) Immunizations Name Administration Dates Next Due COVID-19 [...] Sign Reading Time Taken Comments Blood Pressure 108/72 06/30/2023 10:50 AM EDT Pulse 72 06/30/2023 10:50 AM EDT Temperature 36 C (96.8 F) 06/30/2023 10:50 AM EDT Respiratory Rate 18 06/30/2023 10:50 AM EDT Oxygen Saturation - - Inhaled Oxygen Concentration - - Weight 69.4 kg (153 lb) 06/30/2023 10:50 AM EDT Height 152.4 cm (5') 06/30/2023 10:50 AM EDT Body Mass Index 29.88 06/30/2023 10:50 AM EDT documented in this encounter Progress Notes * Phill Bui MD - 06/30/2023 11:07 AM EDT SUBJECTIVE: Rosalinda Breen is a 72 year old female. Chief Complaint Patient presents with Cold Symptoms Pt c/o cough and loss of voice. Pt states she did have diarrhea yesterday. Pt has had cough for thepast 2 weeks HPI: This is a pleasant 72 year old female here with a non-productive cough and laryngitis x 2 weeks. Yesterday she had a single episode of diarrhea. She denies fevers/chills/shortness of breath. She denies chest pains or palpitations. She states she still has some residual symptoms from when she had covid. 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 with food.. 100 Tab 5 Levocetirizine Dihydrochloride 5 MG Oral Tablet Take 1 Tablet by mouth every evening. Simethicone 80 MG Oral Tablet Chewable Take 1 Tablet by mouth every 6 hours as needed for Gas. Dicyclomine HCl 20 MG Oral Tablet (Bentyl) Take 1 Tablet (20 mg) by mouth 4 times a day as needed (stomach pain and diarrhea). For abdominal pain 120 Tablet 2 Ondansetron HCl 4 MG Oral Tablet Take 1 Tablet (4 mg) by mouth every 6 hours as needed for Nausea. 30 Tablet 0 Amitriptyline HCl 25 MG Oral Tablet (Elavil) [...] BY MOUTH EVERY MORNING 90 Tablet 1 Meclizine HCl 25 MG Oral Tablet (Antivert) TAKE ONE TABLET BY MOUTH THREE TIMES A DAY NEEDED 90 Tablet 3 Albuterol Sulfate HFA 108 (90 Base) MCG/ACT Inhalation Aerosol Solution INHALE 1 PUFF BY MOUTH EVERY 6 HOURS NEEDED FOR WHEEZING 54 g 1 RABEprazole Sodium 20 MG Oral Tablet Delayed Release TAKE 1 TABLET BY MOUTH IN THE IN THE MORNING AND 1 TABLET AT BEDTIME 200 Tablet 1 Amoxicillin-Pot Clavulanate 875-125 MG Oral Tablet (Augmentin) Take 1 Tablet by mouth in the morning and 1 Tablet before bedtime. Do all this for 10 days. 20 Tablet 0 Dextromethorphan-guaiFENesin 10-100 MG/5ML Oral Liquid (Robitussin DM) Take 5 mL by mouth every 4 hours as needed for Cough. 120 mL 5 No current facility-administered medications for this visit. Allergy: Review of patient's allergies indicates: Allergen Reactions Adhesive Tape Band aids--red skin, blisters Chlorzoxazone parafon Orr-2 Inhibitors rash Diclofenac Resin gi bleed Erythromycin Gabapentin Caused patient to have falls Lipitor [Atorvastatin] Other (Please comment) Leg cramps Naproxen gastritis Omeprazole Abdominal pain Orphenadrine Citrate Piroxicam feldene, gastritis Rofecoxib gastritis Statins Myalgia Sulfa Antibiotics Zetia [Ezetimibe] Leg cramps OBJECTIVE: BP 108/72 (BP Site: Left Arm, BP Position: Sitting, BP Cuff Size: Regular) | Pulse 72 | Temp 36 C(96.8 F) (Tympanic) | Resp 18 | Ht 1.524 m (5') | Wt 69.4 kg (153 lb) | BMI 29.88 kg/m | BSA 1.71 m Gen: nad Throat: mild erythema Neck: no adenopathy Lungs: ctab Heart: rrr, no mrg ASSESSMENT AND PLAN: (R05.2) Subacute cough (primary encounter diagnosis) Plan: XR CHEST 2 VIEWS, Dextromethorphan-guaiFENesin 10-100 MG/5ML Oral Liquid (Robitussin DM) -augmentin x 10 days Follow up as needed. No other complaints were offered at this time. Phill Bui MD documented in this encounter Nursing Notes * Angelica Callahan LPN - 06/30/2023 10:50 AM EDT The patient has been properly identified by confirmation of name and date of . Chief Complaint Patient presents with Cold Symptoms Pt c/o cough and loss of voice. Pt states she did have diarrhea yesterday. Pt has had cough for thepast 2 weeks documented in this encounter Plan of Treatment Upcoming Encounters Date Type Specialty Care Team Description 09/25/2023 Office Visit Orthopedics Jaime Mariano MD [address] [place] [address] 10/21/2023 Office Visit Family Medicine KatjaMiladis lynn MD [address] [place] [address] [place] [address] 04/09/2024 Imaging Radiology 04/09/2024 Imaging Radiology Scheduled Orders Name Type Priority Associated Diagnoses Orde r Schedule XR CHEST 2 VIEWS Medical Imaging Routine Subacute cough Ordered: 06/30/2023 Scheduled Procedures Name Priority Associated Diagnoses Date/Ti [...] as of this encounter Visit Diagnoses Diagnosis Subacute cough- Primary Cough documented in this encounter Care Teams Provider Scribe Relationship Specialty Start Date End Date Miladis Hightower MD [address] [place] [address] [place] [address] PCP - General Family Medicine 10/07/17 documented as of this encounter"
--- OUTSIDE RECORDS SUMMARY | 2023-09-27 04:51 | External Medical Summary | Summary of Care ---
Author Name Unknown Organization [facility] Address [address] [place] [address] Phone [phone] Care Team Providers Care Stave Saw Operator Name Role Phone Karmen Hightower MD Primary Care Provide r Reason for Visit * Reason Comments Medication Refill Encounter Details Date Type Department Care Team Description 06/26/2023 Refill Family Medicine [address] [phone] Karmen Hightower MD [address] [place] [address] [place] [address] Allergies Active Allergy Reactions Severity Noted Date [...] as of this encounter (statuses as of 06/26/2023) Medications Medication Sig Dispensed Refills Start Date [...] 90 Tablet 3 02/27/2023 02/27/20 24 Active Albuterol Sulfate HFA 108 [...] the morning. 100 Tablet 1 06/18/2023 Active RABEprazole Sodium 20 MG Oral Tablet Delayed Release TAKE 1 TABLET BY MOUTH IN THE IN THE MORNING AND 1 TABLET AT BEDTIME 200 Tablet 1 06/26/2023 06/25/20 24 Active RABEprazole Sodium 20 MG Oral Tablet Delayed Release TAKE 1 TABLET BY MOUTH IN THE IN THE MORNING AND 1 TABLET AT BEDTIME 200 Tablet 1 01/02/2023 06/26/20 23 Discontinu ed(Refill) documented as of this encounter (statuses as of 06/26/2023) Active Problems Problem Noted Date Asthma, allergic, [...] as of this encounter (statuses as of 06/26/2023) Resolved Problems Problem Noted Date Resolved Date [...] as of this encounter (statuses as of 06/26/2023) Immunizations Name Administration Dates Next Due COVID-19 [...] encounter Miscellaneous Notes * Telephone Encounter - Sa[facility]l Montanez [facility] - 06/26/2023 2:14 PM EDT Signed Prescriptions: Disp Refills RABEprazole Sodium 20 MG Oral Tablet Delay*200 Ta*1 Sig: TAKE 1 TABLET BY MOUTH IN THE IN THE MORNING AND 1 TABLET AT BEDTIMEAuthorizing Provider: KARMEN HIGHTOWEROrderraciel User: SAÚL MONTANEZ documented in this encounter Plan of Treatment Upcoming Encounters Date Type Specialty Care Team Description 09/25/2023 Office Visit Orthopedics Jaime Mariano MD [address] [place] [address] 10/21/2023 Office Visit Family Medicine Karmen Hightower MD [address] [place] [address] [place] [id number] 04/09/2024 Imaging Radiology 04/09/2024 Imaging Radiology Scheduled [...] Not on filedocumented as of this encounter Care Teams Stave Saw Operator Relationship Specialty Start Date End Date Karmen Hightower MD [address] [place] [address] [place] [address] PCP - General Family Medicine 10/07/17 documented as of this encounter
--- OUTSIDE RECORDS SUMMARY | 2023-09-27 04:51 | External Medical Summary | Summary of Care ---
Author Name Unknown Organization [facility] Address [address] [place] [address] Phone [phone] Care Team Providers Care Block Breaker Name Role Phone Miladis Hightower MD Primary Care Provide r Reason for Visit * Reason Comments Acute Encounter Details Date Type Department Care Team Description 07/24/2023 Office Visit Family Medicine [address] [phone] Karina Corey MD [address] [place] [address] [place] [address] Spinal stenosis of lumbar region without neurogenic claudication*; Gastroesophageal reflux disease with esophagitis without hemorrhage Allergies Active Allergy Reactions Severity Noted Date [...] as of this encounter (statuses as of 07/24/2023) Medications Medication Sig Dispensed Refills Start Date [...] abdominal pain 120 Tablet 2 10/07/2022 Active Ondansetron HCl 4 MG Oral TabletIndications:Kobi sea and vomiting, unspecified vomiting type Take 1 Tablet (4 mg) by mouth every 6 hours as needed for Nausea. 30 Tablet 0 10/07/2022 Active Amitriptyline HCl 25 MG Oral Tablet (Elavil)Indications:F ibromyalgia TAKE TWO TABLETS BY MOUTH AT BEDIME 180 Tablet 3 05/05/2023 05/04/2024 Active Fluticasone-Salmetero l 250-50 MCG/ACT Inhalation Aerosol Powder Breath Activated (Advair Diskus) INHALE ONE PUFF BY MOUTH TWICE A DAY IN THE MORNING AND BEFORE BEDTIME 180 Each 3 04/28/2023 04/27/2024 Active Furosemide 20 MG Oral Tablet (Lasix)Indications:Pe [...] BEDTIME 200 Tablet 1 06/26/2023 06/25/2024 Active Dextromethorphan-guai FENesin 10-100 MG/5ML Oral Liquid (Robitussin DM)Indications:Subacu te cough Take 5 mL by mouth every 4 hours as needed for Cough. 120 mL 5 06/30/2023 Active Meclizine HCl 25 MG Oral Tablet (Antivert) TAKE ONE TABLET BY MOUTH THREE TIMES A DAY NEEDED 270 Tablet 0 07/16/2023 Active predniSONE 10 MG Oral Tablet (Deltasone)Indication s:Spinal stenosis of lumbar region without neurogenic claudication Take 5 tabs for 2 days, 4 tabs for 2 days, 3 tabs for 2 days, 2 tabs for 2 days 1 tab for 2 days 30 Tablet 0 07/24/2023 Active Baclofen 10 MG Oral Tablet (Lioresal)Indications :Spinal stenosis of lumbar region without neurogenic claudication Take 1 Tablet by mouth in the morning and 1 Tablet before bedtime. 20 Tablet 0 07/24/2023 Active documented as of this encounter (statuses as of 07/24/2023) Active Problems Problem Noted Date Dyslipidemia 06/29/2023 [...] as of this encounter (statuses as of 07/24/2023) Resolved Problems Problem Noted Date Resolved Date Neuritis of upper extremity 01/27/2023 082 COVID-19 virus infection 02/16/2021 021 Major depressive [...] as of this encounter (statuses as of 07/24/2023) Immunizations Name Administration Dates Next Due COVID-19 mRNA, LNP-s, No Pre serve, 2-Dose Series (Moderna) 03/16/2021,02/09/2021 COVID-19, mRNA, LNP-s, PF, B ooster, 100mcg/0.5mg (Moderna) 11/07/2021 H1N1 2008 Influenza, IM 11/08/2009 Pneumococcal Conjugate Vacc, 13 [...] Sign Reading Time Taken Comments Blood Pressure 138/78 07/24/2023 10:09 AM EDT Pulse 68 07/24/2023 10:09 AM EDT Temperature 35.6 C (96 F) 07/24/2023 10:09 AM EDT Respiratory Rate 16 07/24/2023 10:09 AM EDT Oxygen Saturation - - Inhaled Oxygen Concentration - - Weight 70.8 kg (156 lb) 07/24/2023 10:09 AM EDT Height 152.4 cm (5') 07/24/2023 10:09 AM EDT Body Mass Index 30.47 07/24/2023 10:09 AM EDT documented in this encounter Progress Notes * Karina Cain MD - 07/24/2023 10:16 AM EDT Subjective Rosalinda Breen is a 72 year old female. Chief Complaint Patient presents with Acute HPI: Worsening low back pain. Known h/o spinal stenosis on MRI. Has had consult with Spine Surgery who recommend Interventional Pain consult. She had been scheduled for November 2022, but then canceled the appt. States she had spine injections > 20 years ago that did not help and resulted in numbness in her legs for a week. States she has chronic back pain and h/o sciatica. Was moving her bed a couple days ago and thinks that flared up her pain. Having left lumbar pain radiating to hip and leg. No numbness/ tingling/ weakness/ foot drop. No saddle anesthesia. States pain is 50/10. Worse with walking, better with rest. Using tylenol arthritis, not helping. PMH: Patient Active Problem List Diagnosis Code Fibromyalgia [...] THREE TIMES A DAY NEEDED 270Tablet 0 predniSONE 10 MG Oral Tablet (Deltasone) Take 5 tabs for 2 days, 4 tabs for 2 days, 3 tabs for 2 days, 2 tabs for 2 days 1 tab for 2 days 30 Tablet 0 Baclofen 10 MG Oral Tablet (Lioresal) Take 1 Tablet by mouth in the morning and 1 Tablet before bedtime. 20 Tablet 0 Dextromethorphan-guaiFENesin 10-100 MG/5ML Oral Liquid (Robitussin DM) Take 5 mL by mouth every 4 hours as needed for Cough. 120 mL 5 No current facility-administered medications for this visit. Review of patient's allergies indicates: Allergen Reactions Adhesive Tape Band aids--red skin, blisters Chlorzoxazone parafon Orr-2 Inhibitors rash Diclofenac Resin gi bleed Erythromycin Gabapentin Caused patient to have falls Lipitor [Atorvastatin] Other (Please comment) Leg cramps Naproxen gastritis Omeprazole Abdominal pain Orphenadrine Citrate Piroxicam feldene, gastritis Rofecoxib gastritis Statins Myalgia Sulfa Antibiotics Zetia [Ezetimibe] Leg cramps Objective BP 138/78 | Pulse 68 | Temp 35.6 C (96 F) | Resp 16 | Ht 1.524 m (5') | Wt 70.8 kg (156 lb) | BMI 30.47 kg/m | BSA 1.73 m Physical Exam Constitutional: Appearance: Normal appearance. Musculoskeletal: General: Tenderness present. Comments: + tenderness left lumbar paraspinal muscles + left straight leg test Normal distal neurovascular exam Neurological: General: No focal deficit present. Mental Status: She is alert. Sensory: No sensory deficit. Motor: No weakness. MRI Lumbar from June 2022: IMPRESSION: 1. Mild L3-L4, L4-L5, and L5-S1 [...] changes and annular fissures may be symptomatic. ASSESSMENT/PLAN: Spinal stenosis of lumbar region without neurogenic claudication (Primary) - predniSONE 10 MG Oral Tablet (Deltasone); Take 5 tabs for 2 days, 4 tabs for 2 days, 3 tabs for 2days, 2 tabs for 2 days 1 tab for 2 days - Baclofen 10 MG Oral Tablet (Lioresal); Take 1 Tablet by mouth in the morning and 1 Tablet before bedtime. Gastroesophageal reflux disease with esophagitis without hemorrhage Recommend prednisone and baclofen for acute pain Recommend she reconsider consult with interventional spine as technology has improved - she will think about it and call if ready to schedule Denies GERD sx today Karina Vega MD documented in this encounter Nursing Notes * Nuha Raymond RN - 07/24/2023 10:09 AM EDT Acute visit for back pain. Having a lot of pain when she walks. Pt does see Dr Mariano/ Dr Peters for her hips Pt had an MRI done 06/2022 documented in this encounter Plan of Treatment Upcoming Encounters Date Type Specialty Care Team Description 09/25/2023 Office Visit Orthopedics Jaime Mariano MD [address] [place] [address] 10/21/2023 Office Visit Family Medicine Miladis Hightower MD [address] [place] [address] [place] [id number] 04/09/2024 Imaging Radiology 04/09/2024 Imaging Radiology Scheduled [...] Spinal stenosis, lumbar region, without neurogenic claudication Gastroesophageal reflux disease with esophagitis without hemorrhage documented in this encounter Care Teams Block Breaker Relationship Specialty Start Date End Date Miladis Hightower MD [address] [place] [address] [place] [address] PCP - General Family Medicine 10/07/17 documented as of this encounter"
--- OUTSIDE RECORDS SUMMARY | 2023-09-27 04:51 | External Medical Summary | Summary of Care ---
Author Name Unknown Organization [facility] Address [address] [place] [address] Phone [phone] Care Team Providers Care Roving Tester Laboratory Name Role Phone Miladis Hightower MD Primary Care Provide r Reason for Visit * Reason Comments Follow Up Left hip pain Encounter Details Date Type Department Care Team Description 06/24/2023 Office Visit Orthopaedics [address] [phone] Jaime Mariano MD [address] [facility] [place] [address] Knee injury, left, subsequent encounter*; Primary osteoarthritis of left hip Allergies Active Allergy Reactions Severity Noted Date [...] as of this encounter (statuses as of 06/24/2023) Medications Medication Sig Dispensed Refills Start Date [...] WHEEZING 54 g 1 05/31/2023 4 Active Metoprolol Succinate ER 25 MG Oral Tablet Extended Release 24 Hour (toPROL XL)Indications:Essent ial hypertension with goal blood pressure less than 140/90 Take 1 Tablet by mouth in the morning. 100 Tablet 1 06/18/2023 Active Hospital, Clinic, or Other Facility Administered Medication Ordered Dose Route Frequency Start Date End Date Status Triamcinolone Acetonide (Kenalog) 40 MG/ML inj 40 mgIndications:Primary osteoarthritis of left hip 40 mg IX ONCE 06/24/2023 3 Ended lidocaine 1 % inj 10 mgIndications:Primary osteoarthritis of left hip 10 mg IX ONCE 06/24/2023 3 Ended documented as of this encounter (statuses as of 06/24/2023) Active Problems Problem Noted Date Asthma, allergic, [...] as of this encounter (statuses as of 06/24/2023) Resolved Problems Problem Noted Date Resolved Date [...] as of this encounter (statuses as of 06/24/2023) Immunizations Name Administration Dates Next Due COVID-19 mRNA, LNP-s, No Pre serve, 2-Dose Series (Moderna) 03/16/2021,02/09/2021 Covid-19 Mrna, Lnp-s, No Pre serve, Booster (Moderna) 11/07/2021 H1N1 2009 Influenza, IM 11/08/2009 Influenza, Whole Virus 09/17/2000,1998,08/17/1998,04/1996 Pneumococcal Conjugate Vacc, 13 Valent (Prevnar) 12/08/2017 Pneumococcal Polysaccharide PPV23 (Pneumovax) 02/03/2019,09/03/2005 Seasonal Influenza, Quadriva lent Hd (Fluzone Hd) [...] as of this encounter Progress Notes * Jaime Mariano MD - 06/24/2023 11:38 AM EDT Rosalinda Breen [id number] Rosalinda Breen is a 71 year old female who presents for f/u for left hip injury/pain and left knee to [facility] . I saw her originally for chronic left hip pain on 01/31/2022 Most recent visit 05/29/2023, which was also the initial visit for her left knee injury Rosalinda Breen is here unaccompanied Date of Injury: 01/14/2024 Quality: reviewed and agree with Nursing Notes for HPI elements History: History on 01/31/2022 - States that she fell on the 6th. Has fallen multiple times. Has been dx with OA. No PT . No pain at rest but pain can be severe with ambulation. At times rated up to a 50/10. Additional history 06/13/2022: Reports intra-articular hip steroid injection of the left hip with ultrasound guidance that I performed on that date work substantially well for her. However it wore off in pain return. She was seen by my colleague Gualberto Braswell DO (primary care sports medicine) for this on 04/30/2022. 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 Additional history 06/20/2022: MRI of both her hip and lumbar spine were obtained. Those are described below. No change in symptoms. Patient denies bowel or bladder incontinence, she denies radiation of pain down either leg. She does have back pain was pain in the left lateral hip and groin region. She does not have any right-sided symptoms. Additional history 08/01/2022: Continues to have pain in the region left hip. Would like to have intra- articular steroid injection. Additional history 11/14/2022 F/u left hip pain 8/10 x 1 week Patient has been dx with lyme disease on Doxycycline 14 days Last injection of FAJ left hip 08/01/22 lasted 3 mths In addition she was seen by orthopedic spine surgery regarding lumbar spine pathology. See discussion below in the assessment/plan. No additional history 03/20/2023: Per my referral she was evaluated by my surgical colleague Dr. Engel (orthopaedic surgery) on 11/21/2022. I have read that note and in summary she was diagnosed with severe left hip arthritis. Reporting good response to intra- articular corticosteroid injections. At that time she elected to continue to pursue conservative treatments. If steroid injections became less beneficial in the future she would consider returning to him for potential total hip arthroplasty. Additional history on 05/29/2023: Patient reports that the steroid Injection I did in her left hip at the previous visit helped her significantly. However she had 2 relatively recent falls ones was in late April and 1 was past week. Since that time she is been having more significant knee pain. Hip pain is tolerable. Since that visit: Left knee: Steroid injection performed on 05/29/2023 has helped her left knee. Currently pleased. Follow-up regarding her chronic left hip pain: Here for left hip pain 5 /10 x 4 weeks last injection of FAJ left hip 03/20/2023, patient notes intermittent pain about 4 weeks, lasts perpatient about 3 mths ROS: ROS per HPI otherwise non-contributory Past Medical History: Diagnosis Date Asthma, allergic Lundy's esophagus 08/23/10 repeat in 1 yr COVID-19 virus infection 02/16/2021 Depressive disorder, not elsewhere classified Essential hypertension with goal blood pressure less than 140/90 Heartburn Irritable bowel syndrome Migraine with aura Mitral valve prolapse Myalgia and myositis Need for hepatitis C screening test 06/03/16 negative Tachycardia Family History Problem Relation Age of Onset Hypertension Grandmother (Maternal) Heart Disorder Grandmother (Maternal) murmur Cervical Cancer Grandmother (Maternal) Heart failure Grandmother (Maternal) Breast Cancer No significant family history Social History Socioeconomic History Marital status: Single Spouse name: Not on file Number of children: Not on file Years of education: Not on file Highest education level: Not on file Occupational History Not on file Tobacco Use Smoking status: Former Packs/day: 2.00 Years: 4.00 Pack years: 8.00 Types: Cigarettes Quit date: 11/10/1984 Years since quittin.6 Smokeless tobacco: Never Vaping Use Vaping Use: Never used Substance and Sexual Activity Alcohol use: No Drug use: No Sexual activity: Not on file Other Topics Concern Not on file Social History Narrative Not on file Social Determinants of Health Financial Resource Strain: Not on file Food Insecurity: Not on file Transportation Needs: Not on file Physical Activity: Not on file Stress: Not on file Social Connections: Not on file Intimate Partner Violence: Not on file Housing Stability: Not on file Physical Exam Constitutional: Generally well-nourished and in no acute distress Psychiatric: Mood and Affect normal Eyes: EOMI Respiratory: Normal respiratory effort with regular rate and rhythm Tender palpate over the anterior hip joint and positive pain with internal rotation of the hip Radiology (I have personally reviewed the following films): 05/29/2023: Three-view x-ray left knee No visible fracture. Alignment is normal. Minimal osteophyte formation with preserved joint spaces.There is no joint effusion. Patella tracks normally. IMPRESSION IMPRESSION No acute findings. 06/17/2022: MRI of the lumbar spine IMPRESSION: 1. Mild L3-L4, L4-L5, and L5-S1 [...] changes and annular fissures may be symptomatic. 06/17/2022 MRI left hip IMPRESSION 1. No evidence of a fracture or other acute pathology. 2. Severe osteoarthritis of the left hip 01/15/2022: Three-view x-ray left hip including AP pelvis FINDINGS Bony mineralization is normal. No fracture. Alignment is anatomic. Moderate bilateral hip osteoarthritis with joint space narrowing and marginal spurring. Degenerative disc disease imaged lower lumbar spine. SI joints and pubic symphysis are intact. Soft tissues are unremarkable. IMPRESSION IMPRESSION No fracture. Moderate left hip osteoarthritis Assessment and Plan: 1) left knee pain/hinged Suspect aggravation of mild DJD Intra-articular steroid injection performed 05/29/2023 Follow-up after 06/20/2023 2) left hip pain Suspect this is secondary to her severe DJD. No other concerning findings noted on MRI of the hip. When I saw her originally also had suspicion for occult fracture given she rated her pain a 50 out of a 10. However, she also strongly desired to try a steroid injection at that visit and the Intra-articularsteroid injection I performed on 01/31/2022 with ultrasound guidance gave her substantial relief. That eventually wore off and repeat ultrasound-guided steroid injection performed by my colleague Gualberto Braswell DO (primary care sports medicine) on 07/31/2022 did not help at all. In addition she also had short-term increase of radiation of pain and paresthesias in both legs. Given the severity of pain lack improvement with his injection I repeated an MRI as noted above. That MRI was significant primarily for severe DJD. Per my referral she was evaluated by my surgical colleague Dr. Engel (orthopaedic surgery) on 11/21/2022. I have read that note and in summary she was diagnosed with severe left hip arthritis. Reporting good response to intra- articular corticosteroid injections. At that time she elected to continue to pursue conservative treatments. If steroid injections became less beneficial in the future she would consider returning to him for potential total hip arthroplasty. Therefore repeated intra-articular steroid injection performed with ultrasound guidance on 08/01/2022, 11/14/2022, and 03/20/2023 gave her significant benefit. Repeated today 06/24/2023 2) lumbar spine MRI findings Patient does not have right-sided symptoms and therefore I am less concerned about the severe stenosis noted on the right. However, findings noting L5-S1 epidural lipomatosis results in additional moderate thecal sac narrowing and Conus medullaris terminates at a low level (L2-L3 disc space). Filumterminale fibrolipoma. However, no filum terminale thickening at L5-S1 is noted and no discrete taut filum terminale is noted. Nonetheless, correlation with tethered cord syndrome symptoms is recommended are of more concern. Discussed with patient that she needs to have a neurosurgery evaluation. Referral was placed on 06/20/2022. She was scheduled with Dr. Simmons (Orthopaedic Surgery - Spine) asshe preferred to start evaluation with him rather than travel to [place] to see Neurosurgery. She was seen by Dr. Simmons (Orthopaedic Surgery - Spine) on 10/01/2022. I have read that note and insummary: She was diagnosed with lumbar radiculopathy, lumbar spinal stenosis, lumbar scoliosis she.He is given she was found to be neurologically intact conservative treatments recommended. He mentioned referral was placed. Therapy referral was placed. She was also given a steroid Dosepak. P.r.n. follow-up was recommended. Although pain management referral was placed and scheduled. Patient cancel that visit and does not plan to go. She also does not desire to physical therapy and did not attend that either. However, she currently reports she is doing well symptom eyes with my injections of her hip joint. She is not currently have any red flag symptoms No change as of today 05/29/2023 Procedure note (hip injection), left : Time out: Prior to injection, a time out was called to confirm the administration of appropriate medicine, patient name, procedure and confirm to the best of our ability and knowledge the presence of any necessary risks and benefits. Patient verbalizes understanding. Ultrasound utilized to guide injection. Needed to visualize deep joint recess, obesity Sterile techinique applied. Skin sterilized with alcohol swab. Hip injected using 3.5 inch, 22gaugeneedle. Injected with 1 ml lidocaine 1%, triamcinolone acetonide 40mg/ml 1 ml. Patient tolerated procedure with no significant bleeding or adverse reaction. Patient instructed to call or return to clinic for fever or warmth and redness at injection site for potential infection. Patient also advised as to potential for steroid flare reaction including increased pain and redness at injection site which should be treated with ice and resolve within 24 hours. Jaime Mariano MD Primary Care Sports Medicine Orthopaedics [address] [phone] documented in this encounter Nursing Notes * Janie Saldana LPN - 06/24/2023 11:56 AM EDT F/u left hip pain 5 /10 x 4 weeks last injection of FAJ left hip 03/20/2023, patient notes intermittent pain about 4 weeks, lasts perpatient about 3 mths. H/o lyme disease on Doxycycline 14 days 10/31/2022, completed. documented in this encounter Plan of Treatment Upcoming Encounters Date Type Specialty Care Team Description 06/25/2023 Office Visit Family Medicine Korina Saba, [address] [place] [address] [place] [id number] 09/25/2023 Office Visit Orthopedics Jaime Mariano MD [address] [place] [address] 10/21/2023 Office Visit Family Medicine Miladis Hightower MD [address] [place] [address] [place] [address] 04/09/2024 Imaging Radiology 04/09/2024 Imaging Radiology Scheduled Orders Name Type Priority Associated Diagnoses Orde r Schedule POINT OF CARE US MAJOR JOINT INJECTION, ORTHO Medical Imaging Routine Primary osteoarthritis of left hip Ordered: 06/24/2023 Scheduled Procedures Name Priority Associated Diagnoses Date/Ti [...] as of this encounter Visit Diagnoses Diagnosis Knee injury, left, subsequent encounter- Primary Primary osteoarthritis of left hip Primary localized osteoarthrosis, pelvic region and thigh documented in this encounter Administered Medications Inactive Administered Medications - up to 3 most recent administrations Medication Order MAR Action Action Date Dose Rate Site lidocaine 1 % inj 10 mg 10 mg, Intra-Articular, ONCE, On Fri06/24/23 at 1245, For 1 dose Given 06/24/2023 12:45 PM EDT 10 mg Hip Left Triamcinolone Acetonide (Kenalog) 40 MG/ML inj 40 mg 40 mg, Intra-Articular, ONCE, On Fri06/24/23 at 1245, For 1 dose Given 06/24/2023 12:45 PM EDT 40 mg Hip Left documented in this encounter Care Teams Roving Tester Laboratory Relationship Specialty Start Date End Date Miladis Hightower MD [address] [place] [address] [place] [phone] PCP - General Family Medicine 10/07/17 documented as of this encounter
--- OUTSIDE RECORDS SUMMARY | 2023-09-27 04:51 | External Medical Summary | Summary of Care ---
Author Name Unknown Organization [facility] Address [address] [place] [address] Phone [phone] Care Team Providers Care Net Lead Architect Name Role Phone Miladis Hightower MD Primary Care Provide r Reason for Visit * Reason Comments Follow Up Left hip pain Encounter Details Date Type Department Care Team Description 06/24/2023 Office Visit Orthopaedics [address] [phone] Jaime Mariano MD [address] [place] [id number] Knee injury, left, subsequent encounter*; Primary osteoarthritis [...] hip 40 mg IX ONCE 06/24/2023 3 Active lidocaine 1 % inj 10 mgIndications:Primary osteoarthritis of left hip 10 mg IX ONCE 06/24/2023 3 Active documented as of this encounter [...] - 06/24/2023 11:38 AM EDT Rosalinda Breen [id number] Rosalinda Breen is a 71 year old female who presents for f/u for left hip injury/pain and left knee to [facility] . 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 Additional history 06/20/2022: [...] steroid injections became less beneficial in the futureshe would consider returning to him for potential [...] evaluation with him rather than travel to [place] to see Neurosurgery. She was seen by [...] Mariano MD Primary Care Sports Medicine Orthopaedics [address] [phone] documented in this encounter Nursing Notes * Janie Saldana LPN - 06/24/2023 11:56 AM EDT F/u left hip pain x 4 weeks last injection of FAJ left hip 03/20/2023, patient notes intermittent pain about 4 weeks, lasts perpatient about 3 mths. H/o lyme disease on Doxycycline 14 days 10/31/2022, completed. documented in this encounter Plan of Treatment Upcoming Encounters Date Type Specialty Care Team Description 06/25/2023 Office Visit Family Medicine Korina Saba, [address] [place] [address] [place] [phone] 09/25/2023 Office Visit Orthopedics Jaime Mariano MD [address] [place] [address] 10/21/2023 Office Visit Family Medicine Miladis Hightower MD [address] [place] [address] [place] [address] 04/09/2024 Imaging Radiology 04/09/2024 Imaging Radiology Scheduled [...] region and thigh documented in this encounter Care Teams Net Lead Architect Relationship Specialty Start Date End Date Miladis Hightower MD [address] [place] [address] [place] [phone] PCP - General Family Medicine 10/07/17 documented as of this encounter
--- OUTSIDE RECORDS SUMMARY | 2023-09-27 04:51 | External Medical Summary | Summary of Care ---
Author Name Unknown Organization [facility] Address [address] [place] [address] Phone [phone] Care Team Providers Care Hothouse Worker Name Role Phone Karmen Hightower MD Primary Care Provide r Reason for Visit * Reason Comments Medication Refill Encounter Details Date Type Department Care Team Description 07/15/2023 Refill Family Medicine [address] [phone] Karmen Hightower MD [address] [place] [address] [place] [address] Allergies Active Allergy Reactions Severity Noted [...] as of this encounter (statuses as of 07/16/2023) Medications Medication Sig Dispensed Refills Start Date [...] 10/07/2022 Active Ondansetron HCl 4 MG Oral TabletIndications:Na usea [...] BEDTIME 200 Tablet 1 06/26/2023 4 Active Dextromethorphan-gua iFENesin 10-100 MG/5ML Oral Liquid (Robitussin DM)Indications:Subac shelbi cough Take 5 mL by mouth every 4 hours as needed for Cough. 120 mL 5 06/30/2023 Active Meclizine HCl 25 MG Oral Tablet (Antivert) TAKE ONE TABLET BY MOUTH THREE TIMES A DAY NEEDED 270 Tablet 0 07/16/2023 Active Meclizine HCl 25 MG Oral Tablet (Antivert) TAKE ONE TABLET BY MOUTH THREE TIMES A DAY NEEDED 90 Tablet 3 02/27/2023 3 Discontinue d(Refill) documented as of this encounter (statuses as of 07/16/2023) Active Problems Problem Noted Date Dyslipidemia 06/29/2023 [...] as of this encounter (statuses as of 07/16/2023) Resolved Problems Problem Noted Date Resolved Date Neuritis of upper extremity 01/27/2023 08/2 COVID-19 virus infection 02/16/2021 021 Major depressive [...] as of this encounter (statuses as of 07/16/2023) Immunizations Name Administration Dates Next Due COVID-19 [...] encounter Miscellaneous Notes * Telephone Encounter - Josh Richardson [facility] - 07/16/2023 10:05 AM EDTSigned Prescriptions: Disp Refills Meclizine HCl 25 MG Oral Tablet (Antivert) 270 Ta*0 Sig: TAKE ONE TABLET BY MOUTH THREE TIMES A DAY NEEDEDAuthorizing Provider: KARMEN HIGHTOWEROrderraciel User: JOSH RICHARDSON documented in this encounter Plan of Treatment Upcoming Encounters Date Type Specialty Care Team Description 09/25/2023 Office Visit Orthopedics Jaime Mariano MD [address] [place] [address] 10/21/2023 Office Visit Family Medicine Karmen Hightower MD [address] [place] [address] [place] [phone] 04/09/2024 Imaging Radiology 04/09/2024 Imaging Radiology Scheduled [...] filedocumented as of this encounter Care Teams Hothouse Worker Relationship Specialty Start Date End Date Karmne Hightower MD [address] [place] [address] [place] [phone] PCP - General Family Medicine 10/07/17 documented as of this encounter
--- OUTSIDE RECORDS SUMMARY | 2023-09-27 04:51 | External Medical Summary | Summary of Care ---
Author Name Unknown Organization [facility] Address [address] [place] [address] Phone [phone] Care Team Providers Care Hydroelectric Plant Technician Name Role Phone Miladis Hightower MD Primary Care Provide r Reason for Visit * Reason Onset Date Comments Advice 06/18/2023 Encounter Details Date Type Department Care Team Description 06/18/2023 Telephone Access Center, [place] [address] [facility] *DO NOT REMOVE THIS DEPARTMENT* [place] [address] Services, Scheduling [address] [place] [address] Advice Allergies Active Allergy Reactions Severity Noted [...] as of this encounter (statuses as of 06/18/2023) Medications Medication Sig Dispensed Refills Start Date [...] 90 Tablet 0 04/24/2023 04/23/20 24 Active Meclizine HCl 25 MG Oral [...] MOUTH EVERY MORNING 90 Tablet 1 04/07/2023 06/18/20 23 Discontinu ed(Refill) documented as of this encounter (statuses as of 06/18/2023) Active Problems Problem Noted Date Asthma, allergic, [...] as of this encounter (statuses as of 06/18/2023) Resolved Problems Problem Noted Date Resolved Date [...] as of this encounter (statuses as of 06/18/2023) Immunizations Name Administration Dates Next Due COVID-19 [...] encounter Miscellaneous Notes * Telephone Encounter - Miladis Hightower MD - 06/18/2023 3:19 PM EDT Sent * Telephone Encounter - Era Jordan LPN - 06/18/2023 3:07 PM EDT Looks like the Metoprolol was signed as Normal instead of e-prescribe Refill pended for mail order pharmacy if agreeable Provider to address: PCP Reason for Call: Advice Contact: Telephone Call Contact Type: Medication Outcome: see above Total Time including non face to face (minutes): 10 * Telephone Encounter - GABRIELLE Vega - 06/18/2023 2:24 PM EDT Pt calling in stating she has not received her medication for her blood pressure yet because the office didn't send the script to her pharmacy. Also stated the pharmacy told her it was in the mail. Please call patient back to advise. Thank you. documented in this encounter Plan of Treatment Upcoming Encounters Date Type Specialty Care Team Description 06/24/2023 Office Visit Orthopedics Jaime Mariano MD [address] [place] [address] 10/21/2023 Office Visit Family Medicine Miladis Hightower MD [address] [place] [address] [place] [phone] 04/09/2024 Imaging Radiology 04/09/2024 Imaging Radiology Scheduled [...] hypertension with goal blood pressure less than 140/90- Primary documented in this encounter Care Teams Hydroelectric Plant Technician Relationship Specialty Start Date End Date Miladis Hightower MD [address] [place] [address] [place] [phone] PCP - General Family Medicine 10/07/17 documented as of this encounter
--- OUTSIDE RECORDS SUMMARY | 2023-09-27 04:51 | External Medical Summary | Summary of Care ---
Author Name Unknown Organization [facility] Address [address] [place] [address] Phone [phone] Care Team Providers Care Health Safety Engineer Name Role Phone Miladis Hightower MD Primary Care Provide r Reason for Visit * Reason Onset Date Comments case management 07/28/2023 Encounter Details Date Type Department Care Team Description 07/28/2023 Store Assistant Telephone Care Coordination [address] [place] [address] Ilene Carver, EMANUEL [address], [place] [phone] case management Allergies Active Allergy Reactions Severity [...] as of this encounter (statuses as of 07/28/2023) Medications Medication Sig Dispensed Refills Start Date [...] as of this encounter (statuses as of 07/28/2023) Active Problems Problem Noted Date Dyslipidemia 06/29/2023 [...] as of this encounter (statuses as of 07/28/2023) Resolved Problems Problem Noted Date Resolved Date [...] as of this encounter (statuses as of 07/28/2023) Immunizations Name Administration Dates Next Due COVID-19 [...] Telephone Encounter - Ilene Carver RN - 07/28/2023 2:23 PM EDT Follow-up Routine SNP assessment Attempted Phone Call First Attempt Call Outcome Left Voicemail/Message Plan To attempt another outreach documented in this encounter Plan of Treatment Upcoming Encounters Date Type Specialty Care Team Description 09/25/2023 Office Visit Orthopedics Jaime Mariano MD [address] [place] [id number] 10/21/2023 Office Visit Family Medicine Miladis Hightower MD [address] [place] [address] [place] [address] 04/09/2024 Imaging Radiology 04/09/2024 Imaging Radiology Scheduled [...] filedocumented as of this encounter Care Teams Health Safety Engineer Relationship Specialty Start Date End Date Miladis Hightower MD [address] [place] [address] [place] [address] PCP - General Family Medicine 10/07/17 documented as of this encounter
--- OUTSIDE RECORDS SUMMARY | 2023-09-27 04:52 | External Medical Summary | Summary of Care ---
Author Name Unknown Organization [facility] Address [address] [place] [address] Phone [phone] Care Team Providers Care Criminal Analyst Name Role Phone Miladis Hightower MD Primary Care Provide r Reason for Visit * Reason Comments Follow Up Left hip pain Encounter Details Date Type Department Care Team Description 05/29/2023 Office Visit Orthopaedics [address] [id number] Jaime Mariano MD [address] [place] [address] Knee injury, left, initial encounter* Allergies Active Allergy Reactions Severity Noted Date [...] as of this encounter (statuses as of 05/29/2023) Medications Medication Sig Dispensed Refills Start Date [...] MORNING 90 Tablet 1 04/07/2023 04/06/2024 Active Meclizine HCl 25 MG Oral Tablet (Antivert) TAKE ONE TABLET BY MOUTH THREE TIMES A DAY NEEDED 90 Tablet 3 02/27/2023 02/27/2024 Active RABEprazole Sodium 20 MG Oral Tablet Delayed Release TAKE 1 TABLET BY MOUTH IN THE IN THE MORNING AND 1 TABLET AT BEDTIME 200 Tablet 1 01/02/2023 01/02/2024 Active Albuterol Sulfate HFA 108 (90 Base) MCG/ACT Inhalation Aerosol SolutionIndications:A sthma, allergic, mild intermittent, uncomplicated INHALE 1 PUFF BY MOUTH EVERY 6 HOURS NEEDED FOR WHEEZING 54 g 1 12/26/2022 12/26/2023 Active Hospital, Clinic, or Other Facility Administered Medication Ordered Dose Route Frequency Start Date End Date Status Triamcinolone Acetonide (Kenalog) 40 MG/ML inj 40 mgIndications:Knee injury, left, initial encounter 40 mg IX ONCE 05/29/2023 05/29/2023 E nded lidocaine 1 % inj 10 mgIndications:Knee injury, left, initial encounter 10 mg IX ONCE 05/29/2023 05/29/2023 E nded documented as of this encounter (statuses as of 05/29/2023) Active Problems Problem Noted Date Asthma, allergic, [...] as of this encounter (statuses as of 05/29/2023) Resolved Problems Problem Noted Date Resolved Date [...] as of this encounter (statuses as of 05/29/2023) Immunizations Name Administration Dates Next Due COVID-19 [...] Progress Notes * Jaime Mariano MD - 05/29/2023 1:05 PM EDT Rosalinda Breen [id number] Rosalinda Breen is a 71 year old female who presents for f/u for left hip injury/pain to [facility] . I saw her originally for this on 01/31/2022 Most recent visit 03/20/2023 Rosalinda Breen is here unaccompanied Date of [...] and initially she had increased symptoms including health information assistant tingling in both legs. Additional history [...] to him for potential total hip arthroplasty. Since that visit: Patient reports that the steroid Injection I did in her left hip at the previous visit helped her significantly. However she had 2 relatively recent falls ones was in late April and 1 was past week. Since that time she is been having more significant knee pain. Hip pain is tolerable. ROS: ROS per HPI otherwise non-contributory Past [...] Types: Cigarettes Quit date: 11/10/1984 Years since quittin.5 Smokeless tobacco: Never Vaping Use Vaping Use: [...] the following films): 05/29/2023: Three-view x-ray left Mild tricompartmental degenerative changes - per my interpretation. Awaiting formal radiology interpretation. 06/17/2022: MRI of the lumbar spine IMPRESSION: [...] of mild DJD Intra-articular steroid injection performed today 05/29/2023 Follow-up after 06/20/2023 2) left hip [...] MRI was significant primarily for severe DJD. Therefore repeated intra-articular steroid injection performed with ultrasound guidance on 08/01/2022, 11/14/2022, and 03/20/2023 gave her significant benefit. Is aggravated some since her recent falls however not bad enough to warrant x- rays based on our discussion. I did offer to order them and she did not think they are needed. Per my referral she was evaluated by [...] to him for potential total hip arthroplasty. Follow-up after 06/20/2023 for possible intra-articular hip steroid injection. She will postpone the visit if she is not think she needs this injection 2) lumbar spine MRI findings Patient does [...] with Dr. Simmons (Orthopaedic Surgery - Spine) stormhe preferred to start evaluation with him rather than travel to [place] to see Neurosurgery. She was seen by Dr. Simmons (Orthopaedic Surgery - Spine) on 10/01/2022. I have read that note and insummary: She was diagnosed with lumbar radiculopathy, lumbar spinal stenosis, lumbar scoliosis she.He is given she was found to be neurologically intact conservative treatments recommended. He mentioned referral was placed. Therapy referral was placed. She was also given a steroid Dosepak. P.r.n.follow-up was recommended. Although pain management referral was [...] change as of today 05/29/2023 Procedure note (knee injection), left : Time out: Prior to injection, a time out was called to confirm the administration of appropriate medicine, patient name, procedure and confirm to the best of our ability and knowledge the presence of any necessary risks and benefits. Patient verbalizes understanding. Sterile techinique applied. Skin sterilized with alcohol swab. Knee injected using 1.5 inch, 22 gauge needle. Injected with 1 ml lidocaine 1%, triamcinolone [...] Mariano MD Primary Care Sports Medicine Orthopaedics [address] [phone] documented in this encounter Nursing Notes * Janie Saldana LPN - 05/29/2023 1:01 PM EDT F/u left hip pain /10 x 1 week last injection of FAJ left hip 03/20/2023, patient notes hurts in a differnt spot now left buttock and left knee. Patient notes has vertigo is taking Meclizine once daily is going to start taking more during the day Patient has been dx with lyme disease on Doxycycline 14 days 10/31/2022 documented in this encounter Plan of Treatment Upcoming Encounters Date Type Specialty Care Team Description 06/24/2023 Office Visit Orthopedics Jaime Mariano MD [address] [place] [address] 10/21/2023 Office Visit Family Medicine Miladis Hightower MD [address] [place] [address] [place] [address] 04/09/2024 Imaging Radiology 04/09/2024 Imaging Radiology Pending Results Name Type Priority Associated Diagnoses Date /Time XR KNEE 3 VIEWS Medical Imaging Routine Knee injury, left, initial encounter 05/29/2023 1:29 PM EDT Scheduled Procedures Name Priority Associated Diagnoses Date/Ti [...] encounter Visit Diagnoses Diagnosis Knee injury, left, initial encounter- Primary documented in this encounter Administered Medications Inactive Administered Medications - up to 3 most recent administrations Medication Order MAR Action Action Date Dose Rate Site lidocaine 1 % inj 10 mg 10 mg, Intra-Articular, ONCE, On Sharmin 05/29/23 at 1500, For 1 dose Given 05/29/2023 2:23 PM EDT 10 mg Knee Left Triamcinolone Acetonide (Kenalog) 40 MG/ML inj 40 mg 40 mg, Intra-Articular, ONCE, On Sharmin 05/29/23 at 1500, For 1 dose Given 05/29/2023 2:24 PM EDT 40 mg Knee Left documented in this encounter Care Teams Criminal Analyst Relationship Specialty Start Date End Date Miladis Hightower MD [address] [place] [address] [place] [address] PCP - General Family Medicine 10/07/17 documented as of this encounter
--- OUTSIDE RECORDS SUMMARY | 2023-09-27 04:52 | External Medical Summary | Summary of Care ---
Author Name Unknown Organization [facility] Address [address] [place] [address] Phone [phone] Care Team Providers Care Almond Sorter Name Role Phone Miladis Hightower MD Primary Care Provide r Reason for Visit * Reason Comments Re-Check Encounter Details Date Type Department Care Team Description 04/24/2023 Office Visit Family Medicine [address] [place] [address] Pauline Fisher PA-[facility] [address] [place] [address] [place] [address] Essential hypertension with goal blood pressure less than 140/90*; Peripheral edema; Dyslipidemia, goal LDL below 130; Asthma, allergic, mild intermittent, uncomplicated; Mild persistent asthma without complication; Heartburn; 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; Laryngitis Allergies Active Allergy Reactions Severity Noted Date [...] as of this encounter (statuses as of 04/24/2023) Medications Medication Sig Dispensed Refills Start Date [...] hours as needed for Gas. 0 Active Fluticasone-Salmeter ol 250-50 MCG/ACT Inhalation Aerosol Powder Breath Activated (Advair Diskus) Inhale by mouth 1 Puff in the morning AND 1 Puff before bedtime. 180 Each 3 04/12/2022 Active Amitriptyline HCl 25 MG Oral Tablet (Elavil)Indications: Fibromyalgia TAKE TWO TABLETS BY MOUTH DAILY AT BEDTIME 180 Tablet 3 04/12/2022 Active Dicyclomine HCl 20 MG Oral Tablet [...] for Nausea. 30 Tablet 0 10/07/2022 Active Albuterol Sulfate HFA 108 (90 Base) MCG/ACT Inhalation Aerosol SolutionIndications: Asthma, allergic, mild intermittent, uncomplicated INHALE ONE PUFF BY MOUTH EVERY 6 HOURS NEEDED FOR WHEEZING 54 g 1 12/26/2022 Active RABEprazole Sodium 20 MG Oral Tablet Delayed Release TAKE ONE TABLET BY MOUTH EVERY MORNING AND TAKE ONE TABLET BY MOUTH AT BEDTIME 200 Tablet 1 01/02/2023 Active Meclizine HCl 25 MG Oral Tablet (Antivert) TAKE ONE TABLET BY MOUTH THREE TIMES A DAY NEEDED 90 Tablet 3 02/27/2023 Active Metoprolol Succinate ER 25 MG Oral Tablet Extended Release 24 Hour (toPROL XL) TAKE ONE TABLET BY MOUTH EVERY MORNING 90 Tablet 1 04/07/2023 Active Furosemide 20 MG Oral Tablet (Lasix)Indications:P eripheral edema Take 1 Tablet by mouth daily as needed (edema). 90 Tablet 0 04/24/2023 Active Furosemide 20 MG Oral Tablet (Lasix)Indications:P eripheral edema Take 1 Tab by mouth daily as needed (edema). 30 Tab 5 09/05/2021 3 Discontinue d(Refill) documented as of this encounter (statuses as of 04/24/2023) Active Problems Problem Noted Date Asthma, allergic, [...] as of this encounter (statuses as of 04/24/2023) Resolved Problems Problem Noted Date Resolved Date [...] as of this encounter (statuses as of 04/24/2023) Immunizations Name Administration Dates Next Due COVID-19 [...] Sign Reading Time Taken Comments Blood Pressure 116/74 04/24/2023 11:07 AM EDT Pulse 84 04/24/2023 11:07 AM EDT Temperature 36.1 C (97 F) 04/24/2023 11:07 AM EDT Respiratory Rate 16 04/24/2023 11:07 AM EDT Oxygen Saturation 94% 04/24/2023 11:07 AM EDT Inhaled Oxygen Concentration - - Weight 70.8 kg (156 lb) 04/24/2023 11:07 AM EDT Height 152.4 cm (5') 04/24/2023 11:07 AM EDT Body Mass Index 30.47 04/24/2023 11:07 AM EDT documented in this encounter Progress Notes * Pauline Fisher PA-C - 04/24/2023 11:19 AM EDT Images from the original note were not included. History of Present Illness Rosalinda Breen is a 72 year old female that presents for Re-Check Nursing Notes: Kelsy Mondragon LPN 04/24/23 1119 Signed 6 month recheck Discuss Mammogram results. Brief Clinical History Ms. Breen is a 72 year old woman last seen in Family Medicine 1 month ago (03-05-23). She is not due for eval of any conditions. HPI: Rosalinda Breen is a 72 year old female presenting to the office today for 6 month return. She has had some laryngitis and some discomfort in the throat x 3 days. Has had at times in the past. She doesn't have pain, but she does have dryness in her throat. No fever, sweats/chills out of the ordinary. She has been running the AC though. She has been drinking some tea and some other fluids. She has been working on more activity, and her weight has been coming down. She doesn't use her Advair every day. Her GERD has been well controlled. She has had some LLE edema. She needs a new script for Lasix. She had 2 Cologuard kits and threw them away. Not interested. Reviewed record/notes including: EGD, Colonoscopy Current Outpatient Medications Medication Instructions Acetaminophen (TYLENOL) 650 mg, Oral, Q6H PRN Albuterol Sulfate HFA 108 (90 Base) MCG/ACT Inhalation Aerosol Solution INHALE ONE PUFF BY MOUTH EVERY 6 HOURS NEEDED FOR WHEEZING Amitriptyline HCl 25 MG Oral Tablet (Elavil) TAKE TWO TABLETS BY MOUTH DAILY AT BEDTIME aspirin 81 mg, Oral, Daily(AM), with food. dicyclomine (BENTYL) 20 mg, Oral, QID PRN, For abdominal pain Fluticasone-Salmeterol 250-50 MCG/ACT Inhalation Aerosol Powder Breath Activated (Advair Diskus) 1 Puff, Inhalation, BID(AM/PM) Furosemide (LASIX) 20 mg, Oral, DAILY PRN Levocetirizine Dihydrochloride 5 mg, Oral, QPM-2000 Meclizine HCl 25 MG Oral Tablet (Antivert) TAKE ONE TABLET BY MOUTH THREE TIMES A DAY NEEDED Metoprolol Succinate ER 25 MG Oral Tablet Extended Release 24 Hour (toPROL XL) TAKE ONE TABLET BY MOUTH EVERY MORNING ondansetron (ZOFRAN) 4 mg, Oral, Q6H PRN RABEprazole Sodium 20 MG Oral Tablet Delayed Release TAKE ONE TABLET BY MOUTH EVERY MORNING ANDTAKE ONE TABLET BY MOUTH AT BEDTIME Simethicone (MYLICON) 80 mg, Oral, Q6H PRN Med list reviewed by me today. Physical Exam Vitals: 04/24/23 1107 Temp: 36.1 C (97 F) Pulse: 84 Resp: 16 SpO2: 94% BP: 116/74 BMI: 30.47 Physical exam: General: Well-Developed. Well appearing. No acute distress. HENT: Normocephalic. Atraumatic. Hearing normal. Left TM pearly sandoval. Right TM blocked partially with cerumen- patient doesn't want flushed today. Tragus without tenderness. No nasal drainage. Posterior oropharynx with very mild erythema, but no exudates, or post-nasal drip. Eyes: EOMI. Sclera without erythema or icterus. No discharge. Pupils equal, round, reactive to light. Neck: No tracheal deviation. ROM intact. No stridor. Mild tenderness in the posterior and anterior chain. Cardiovascular: RRR. Normal S1/S2 noted. No murmur, rub or gallop appreciated. Pulmonary: No respiratory distress. No accessory muscle use. No adventitious sounds appreciated. Normal breath sounds. Musculoskeletal: ROM intact and appears normal. No gait disturbance. Note trace pitting edema in the B/L LE Neurologic: Alert. Oriented x 3. Appears stated age. CN 2-12 grossly intact. Skin: Warm and dry. No apparent rashes or ecchymoses. No jaundice or pallor noted. Psych: Mood and affect normal. I have reviewed the following results: CMP, Lipid Panel, B12 and Magnesium Assessment and Plan Essential hypertension with goal blood pressure less than 140/90 Stable. Continue same Peripheral edema Restart Lasix PRN. Take today and up to 2-3 days in a row as needed but then only as needed again. If edema doesn't improve, call - Furosemide 20 MG Oral Tablet (Lasix); Take 1 Tablet by mouth daily as needed (edema). Dyslipidemia, goal LDL below 130 Continue to monitor Asthma, allergic, mild intermittent, uncomplicated Mild persistent asthma without complication Stable. Continue Advair Heartburn Stable. Continue PPI. 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 UTD on EGD. Continue PPI. Laryngitis Suspect viral. Monitor symptoms. Continue drinking lots of fluid and gargles PRN Wrap-Up F/U as scheduled or sooner PRN documented in this encounter Nursing Notes * Kelsy Mondragon LPN - 04/24/2023 11:06 AM EDT 6 month recheck Discuss Mammogram results. documented in this encounter Plan of Treatment Upcoming Encounters Date Type Specialty Care Team Description 10/21/2023 Office Visit Family Medicine Miladis Hightower MD [address] [place] [address] [place] [address] 04/09/2024 Imaging Radiology 04/09/2024 Imaging Radiology Scheduled [...] for Pts 12 and Over 11/07/2022 11/07/2021 GFR 10/21/2023 10/21/2022, 07/11, 09/04/2020, Additional history exists Mammogram 04/08/2024 04/08/2023, 08/10, 02/01/2022, Additional history exists DXA Scan 10/15/2024 10/15/2017 Lipid Panel 10/21/2027 10/21/2022, 07/11, 06/14/2019, Additional history exists Pneumococcal Vaccine: 65+ Years Completed 02/03/2019, 12/08/2017, 09/03/2005 Influenza Vaccine (FLU shot) Completed 12/2021, 09/10/2021, 09/04/2020, Additional history exists GARDASIL-HPV IMMUNIZATION SERIES Aged [...] goal blood pressure less than 140/90- Primary Peripheral edema Edema Dyslipidemia, goal LDL below 130 Other and unspecified hyperlipidemia Asthma, allergic, mild intermittent, uncomplicated Mild persistent asthma without complication Unspecified asthma Heartburn 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 Lundy's esophagus Laryngitis Acute laryngitis, without mention of obstruction documented in this encounter Care Teams Almond Sorter Relationship Specialty Start Date End Date Miladis Hightower MD [address] [place] [address] [place] [address] PCP - General Family Medicine 10/07/17 documented as of this encounter
--- OUTSIDE RECORDS SUMMARY | 2023-09-27 04:52 | External Medical Summary | Summary of Care ---
Author Name Unknown Organization [facility] Address [address] [place] [address] Phone [phone] Care Team Providers Care Nursing Clinical Director Name Role Phone Karmen Hightower MD Primary Care Provide r Reason for Visit * Reason Comments eRx-Medication Refill Encounter Details Date Type Department Care Team Description 05/05/2023 Refill Family Medicine [address] [place] [address] Pauline iFsher PA-C [address] [place] [address] Dr [place] [id number] Fibromyalgia Allergies Active Allergy Reactions Severity Noted Date [...] as of this encounter (statuses as of 05/05/2023) Medications Medication Sig Dispensed Refills Start Date End Date Status aspirin 81 MG chewable tablet Take 1 Tablet by mouth in the morning. with food.. 100 Tab 5 07/25/201 6 Active acetaminophen (TYLENOL) 325 MG Tablet Take 2 Tablets by mouth every 6 hours as needed for Pain or Fever. 100 Tab 0 6 Active Levocetirizine Dihydrochloride 5 MG Oral [...] 2 Active Ondansetron HCl 4 MG Oral TabletIndications:Na usea and vomiting, unspecified vomiting type Take 1 Tablet (4 mg) by mouth every 6 hours as needed for Nausea. 30 Tablet 0 2 Active Albuterol Sulfate HFA 108 (90 Base) MCG/ACT Inhalation Aerosol SolutionIndications: Asthma, allergic, mild intermittent, uncomplicated INHALE ONE PUFF BY MOUTH EVERY 6 HOURS NEEDED FOR WHEEZING 54 g 1 3 Active RABEprazole Sodium 20 MG Oral Tablet Delayed Release TAKE ONE TABLET BY MOUTH EVERY MORNING AND TAKE ONE TABLET BY MOUTH AT BEDTIME 200 Tablet 1 3 Active Meclizine HCl 25 MG Oral Tablet (Antivert) TAKE ONE TABLET BY MOUTH THREE TIMES A DAY NEEDED 90 Tablet 3 3 Active Metoprolol Succinate ER 25 MG Oral Tablet Extended Release 24 Hour (toPROL XL) TAKE ONE TABLET BY MOUTH EVERY MORNING 90 Tablet 1 3 Active Furosemide 20 MG Oral Tablet (Lasix)Indications:P eripheral edema Take 1 Tablet by mouth daily as needed (edema). 90 Tablet 0 3 Active Fluticasone-Salmeter ol 250-50 MCG/ACT Inhalation Aerosol Powder Breath Activated (Advair Diskus) INHALE ONE PUFF BY MOUTH EVERY MORNING AND INHALE ONE PUFF BY MOUTH AT BEDTIME 180 Each 3 3 Active Amitriptyline HCl 25 MG Oral Tablet (Elavil)Indications: Fibromyalgia TAKE TWO TABLETS BY MOUTH AT BEDTIME 180 Tablet 3 3 Active Amitriptyline HCl 25 MG Oral Tablet (Elavil)Indications: Fibromyalgia TAKE TWO TABLETS BY MOUTH DAILY AT BEDTIME 180 Tablet 3 2 05/05/20 23 Discontinued documented as of this encounter (statuses as of 05/05/2023) Active Problems Problem Noted Date Asthma, allergic, [...] as of this encounter (statuses as of 05/05/2023) Resolved Problems Problem Noted Date Resolved Date [...] as of this encounter (statuses as of 05/05/2023) Immunizations Name Administration Dates Next Due COVID-19 [...] encounter Miscellaneous Notes * Telephone Encounter - Latrice Santiago [facility] - 05/05/2023 6:39 PM EDTSigned Prescriptions: Disp Refills Amitriptyline HCl 25 MG Oral Tablet (Elavi*180 Ta*3 Sig: TAKE TWO TABLETS BY MOUTH AT BEDTIMEAuthorizing Provider: KARMEN HIGHTOWEROrderraciel User: LATRICE SANTIAGO documented in this encounter Plan of Treatment Upcoming Encounters Date Type Specialty Care Team Description 10/21/2023 Office Visit Family Medicine Karmen Hightower MD [address] [place] [address] [place] [address] 04/09/2024 Imaging Radiology 04/09/2024 [...] as of this encounter Visit Diagnoses Diagnosis Fibromyalgia Mylagia and myositis, unspecified documented in this encounter Care Teams Nursing Clinical Director Relationship Specialty Start Date End Date Karmen Hightower MD [address] [place] [address] [place] [id number] PCP - General Family Medicine 10/07/17 documented as of this encounter
--- OUTSIDE RECORDS SUMMARY | 2023-09-27 04:52 | External Medical Summary | Summary of Care ---
Author Name Unknown Organization [facility] Address [address] [place] [address] Phone [phone] Care Team Providers Care Senior Medical Transcriptionist Name Role Phone Karmen Hightower MD Primary Care Provide r Reason for Visit * Reason Comments eRx-Medication Refill Encounter Details Date Type Department Care Team Description 04/27/2023 Refill Family Medicine [address] [place] [address] Pauline Fisher PA-C [address] [place] [address] Dr [place] [id number] Allergies Active Allergy Reactions Severity Noted Date [...] as of this encounter (statuses as of 04/28/2023) Medications Medication Sig Dispensed Refills Start Date End Date Status aspirin 81 MG chewable tablet Take 1 Tablet by mouth in the morning. with food.. 100 Tab 5 6 Active acetaminophen (TYLENOL) 325 MG Tablet [...] DAILY AT BEDTIME 180 Tablet 3 2 Active Dicyclomine HCl 20 MG Oral Tablet [...] AT BEDTIME 180 Each 3 3 Active Fluticasone-Salmeter ol 250-50 MCG/ACT Inhalation Aerosol Powder Breath Activated (Advair Diskus) Inhale by mouth 1 Puff in the morning AND 1 Puff before bedtime. 180 Each 3 2 04/28/20 23 Discontinued documented as of this encounter (statuses as of 04/28/2023) Active Problems Problem Noted Date Asthma, allergic, [...] as of this encounter (statuses as of 04/28/2023) Resolved Problems Problem Noted Date Resolved Date [...] as of this encounter (statuses as of 04/28/2023) Immunizations Name Administration Dates Next Due COVID-19 [...] encounter Miscellaneous Notes * Telephone Encounter - Elizabeth Morocho RP - 04/28/2023 5:05 PM EDTSigned Prescriptions: Disp Refills Fluticasone-Salmeterol 250-50 MCG/ACT Inha*180 Ea*3 Sig: INHALE ONE PUFF BY MOUTH EVERY MORNING AND INHALE ONE PUFF BY MOUTH AT BEDTIMEAuthorizing Provider: KARMEN HIGHTOWEROrdering User: ELIZABETH MOROCHO documented in this encounter Plan of Treatment Upcoming Encounters Date Type Specialty Care Team Description 10/21/2023 Office Visit Family Medicine Katja, Karmen Black MD [address] [place] [address] [place] [address] 04/09/2024 Imaging Radiology 04/09/2024 [...] filedocumented as of this encounter Care Teams Senior Medical Transcriptionist Relationship Specialty Start Date End Date Karmen Hightower MD [address] [place] [address] [place] [address] PCP - General Family Medicine 10/07/17 documented as of this encounter
--- OUTSIDE RECORDS SUMMARY | 2023-09-27 04:52 | External Medical Summary | Summary of Care ---
Author Name Unknown Organization [facility] Address [address] [place] [address] Phone [phone] Care Team Providers Care Hand Stamper Name Role Phone Miladis Hightower MD Primary Care Provide r Reason for Visit * Reason Onset Date Comments Advice 04/25/2023 Encounter Details Date Type Department Care Team Description 04/25/2023 Telephone Family Medicine [address] [address] Miladis Hightower MD [address] [place], [place] [address] [id number] Advice Allergies Active Allergy Reactions Severity Noted [...] as of this encounter (statuses as of 04/30/2023) Medications Medication Sig Dispensed Refills Start Date [...] (Elavil)Indications:Fi bromyalgia TAKE TWO TABLETS BY MOUTH DAILY AT BEDTIME 180 Tablet 3 04/12/2022 Active Dicyclomine HCl 20 MG Oral Tablet (Bentyl)Indications:Di arrhea, unspecified type,Irritable bowel syndrome with diarrhea Take 1 Tablet (20 mg) by mouth 4 times a day as needed (stomach pain and diarrhea). For abdominal pain 120 Tablet 2 10/07/2022 Active Ondansetron HCl 4 MG Oral TabletIndications:Naus ea and vomiting, unspecified vomiting type Take 1 Tablet (4 mg) by mouth every 6 hours as needed for Nausea. 30 Tablet 0 10/07/2022 Active Albuterol Sulfate HFA 108 (90 Base) MCG/ACT Inhalation Aerosol SolutionIndications:As thma, allergic, mild intermittent, uncomplicated INHALE ONE PUFF [...] 04/07/2023 Active Furosemide 20 MG Oral Tablet (Lasix)Indications:Per ipheral edema Take 1 Tablet by mouth daily as needed (edema). 90 Tablet 0 04/24/2023 Active documented as of this encounter (statuses as of 04/30/2023) Active Problems Problem Noted Date Asthma, allergic, [...] as of this encounter (statuses as of 04/30/2023) Resolved Problems Problem Noted Date Resolved Date [...] as of this encounter (statuses as of 04/30/2023) Immunizations Name Administration Dates Next Due COVID-19 [...] encounter Miscellaneous Notes * Telephone Encounter - Kelsey Simmons LPN - 04/25/2023 3:37 PM EDT Left message for pt to call back. Transfer to Nurse Triage Line [phone] * Telephone Encounter - Pauline Fisher PA-C - 04/25/2023 12:53 PM EDT Can try fluticasone nasal spray if not already using and can try Coricidin for cough for now. Recommend otherwise, waiting out symptoms until at least Friday prior to considering antibiotic. * Telephone Encounter - Kelsey Simmons LPN - 04/25/2023 10:43 AM EDT Shai Carpenter - please advise * Telephone Encounter - GABRIELLE Moreno - 04/25/2023 9:17 AM EDT Patient in yesterday and calloing to request advice with persistant cough thru the night. documented in this encounter Plan of Treatment Upcoming Encounters Date Type Specialty Care Team Description 10/21/2023 Office Visit Family Medicine Miladis Hightower MD [address] [place] [address] [place] [address] 04/09/2024 Imaging Radiology 04/09/2024 [...] filedocumented as of this encounter Care Teams Hand Stamper Relationship Specialty Start Date End Date Miladis Hightower MD [address] [place] [address] [place] [phone] PCP - General Family Medicine 10/07/17 documented as of this encounter
--- OUTSIDE RECORDS SUMMARY | 2023-09-27 04:52 | External Medical Summary | Summary of Care ---
Author Name Unknown Organization [facility] Address [address] [place] [address] Phone [phone] Care Team Providers Care Litigation Coordinator Name Role Phone Karmen Hightower MD Primary Care Provide r Reason for Visit * Reason Comments Medication Refill Encounter Details Date Type Department Care Team Description 05/30/2023 Refill Family Medicine [address] [address] Karmen Hightower MD [address] [place] [address] [place] [address] Asthma, allergic, mild intermittent, uncomplicated Allergies Active Allergy Reactions Severity Noted Date [...] as of this encounter (statuses as of 05/31/2023) Medications Medication Sig Dispensed Refills Start Date [...] WHEEZING 54 g 1 05/31/2023 4 Active Albuterol Sulfate HFA 108 (90 Base) MCG/ACT Inhalation Aerosol SolutionIndications: Asthma, allergic, mild intermittent, uncomplicated INHALE 1 PUFF BY MOUTH EVERY 6 HOURS NEEDED FOR WHEEZING 54 g 1 12/26/2022 3 Discontinue d(Refill) documented as of this encounter (statuses as of 05/31/2023) Active Problems Problem Noted Date Asthma, allergic, [...] as of this encounter (statuses as of 05/31/2023) Resolved Problems Problem Noted Date Resolved Date [...] as of this encounter (statuses as of 05/31/2023) Immunizations Name Administration Dates Next Due COVID-19 [...] Miscellaneous Notes * Telephone Encounter - Elizabeth Morocho, [facility] - 05/31/2023 12:13 PM EDTSigned Prescriptions: Disp Refills Albuterol Sulfate HFA 108 (90 Base) MCG/AC*54 g 1 Sig: INHALE 1 PUFF BY MOUTH EVERY 6 HOURS NEEDED FOR WHEEZINGAuthorizing Provider: KARMEN HIGHTOWEROrderraciel User: ELIZABETH MOROCHO documented in this encounter Plan of Treatment Upcoming Encounters Date Type Specialty Care Team Description 06/24/2023 Office Visit Orthopedics Jaime Mariano MD [address] [place] [address] 10/21/2023 Office Visit Family Medicine Karmen Hightower MD [address] [place] [address] [place] [phone] 04/09/2024 Imaging Radiology 04/09/2024 Imaging Radiology Scheduled [...] as of this encounter Visit Diagnoses Diagnosis Asthma, allergic, mild intermittent, uncomplicated documented in this encounter Care Teams Litigation Coordinator Relationship Specialty Start Date End Date Karmen Hightower MD [address] [place] [address] [place] [address] PCP - General Family Medicine 10/07/17 documented as of this encounter
--- OUTSIDE RECORDS SUMMARY | 2023-09-27 04:52 | External Medical Summary | Summary of Care ---
Author Name Unknown Organization [facility] Address [address] [facility] [place] [address] Phone [phone] Care Team Providers Care Club Attendant Name Role Phone Karmen Hightower MD Primary Care Provide r Reason for Visit * Reason Comments eRx-Medication Refill Encounter Details Date Type Department Care Team Description 04/05/2023 Refill Family Medicine [address] [place] [address] Pauline Fisher PA-C [address] [place] [address] Dr [place] [phone] Allergies Active Allergy Reactions Severity Noted Date [...] as of this encounter (statuses as of 04/07/2023) Medications Medication Sig Dispensed Refills Start Date End Date Status aspirin 81 MG chewable tablet Take 1 Tablet by mouth in the morning. with food.. 100 Tab 5 6 Active acetaminophen (TYLENOL) 325 MG Tablet Take 2 Tablets by mouth every 6 hours as needed for Pain or Fever. 100 Tab 0 6 Active Furosemide 20 MG Oral Tablet (Lasix)Indications:P eripheral edema Take 1 Tab by mouth daily as needed (edema). 30 Tab 5 1 Active Levocetirizine Dihydrochloride 5 MG Oral Tablet [...] Puff before bedtime. 180 Each 3 2 Active Amitriptyline HCl 25 MG Oral [...] EVERY MORNING 90 Tablet 1 3 Active Metoprolol Succinate ER 25 MG Oral Tablet Extended Release 24 Hour (toPROL XL) Take by mouth 1 Tablet in the morning. 90 Tablet 3 2 04/07/20 23 Discontinued documented as of this encounter (statuses as of 04/07/2023) Active Problems Problem Noted Date Asthma, allergic, [...] as of this encounter (statuses as of 04/07/2023) Resolved Problems Problem Noted Date Resolved Date [...] as of this encounter (statuses as of 04/07/2023) Immunizations Name Administration Dates Next Due COVID-19 [...] encounter Miscellaneous Notes * Telephone Encounter - Julia Piper [facility] - 04/07/2023 8:53 AM EDTSigned Prescriptions: Disp Refills Metoprolol Succinate ER 25 MG Oral Tablet *90 Tab*1 Sig: TAKE ONE TABLET BY MOUTH EVERY MORNINGAuthorizing Provider: KARMEN HIGHTOWEROrderraciel User: MARÍA PIPER documented in this encounter Plan of Treatment Upcoming Encounters Date Type Specialty Care Team Description 04/08/2023 Imaging Radiology 04/08/2023 Imaging Radiology 04/21/2023 Office Visit Family Medicine Pauline Fisher, PAUL-C [address] [place] [address] [place] [phone] 10/21/2023 Office Visit Family Medicine Karmen Hightower MD [address] [place] [address] [place] [phone] Scheduled Procedures Name Priority Associated Diagnoses Date/Ti [...] Cancer Screening 2021 COVID-19 Vaccine (4 - Booster for Moderna series) 01/02/2022 11/07/2021, 03/16/2021, 02/09/2021 Depression Screening, Annual for Pts 12 and Over 11/07/2022 11/07/2021 Mammogram 08/19/2023 08/19/2022, 01/09, 01/10/2022, Additional history exists GFR 10/21/2023 10/21/2022, 07/11, 09/04/2020, Additional history exists DXA Scan 10/15/2024 10/15/2017 [...] filedocumented as of this encounter Care Teams Club Attendant Relationship Specialty Start Date End Date Karmen Hightower MD [address] [place] [address] [place] [address] PCP - General Family Medicine 10/07/17 documented as of this encounter
[2023-09-27 05:07] LABS: Hemoglobin 13.5 g/dl (12.0-16.0); Mean Corpuscular Hemoglobin 34.4 pg (25.0-34.0); Mean Corpuscular Hgb Conc 35.5 g/dL (32.0-36.0); Mean Corpuscular Volume 96.7 fL (80.0-100.0); Mean Platelet Volume 8.9 fL (9.4-12.4); Platelet Count 238 K/uL (130-400); RDW Coefficient of Variation 12.3 % (11.5-14.5); RDW Standard Deviation 43.8 fL (36.4-46.3); Red Blood Count 3.93 M/uL (4.20-5.40); White Blood Count 7.52 K/ul (4.8-10.8)
[2023-09-27 05:39] LABS: Partial Thromboplastin Ratio > 4.9
[2023-09-27 05:41] LABS: Calcium 8.6 mg/dl (8.6-10.3); Potassium 3.9 mmol/L (3.5-5.1)
[2023-09-27 05:47] LABS: BUN Creatinine Ratio 13.1 (10-20); Creatinine Clr Calc Pharmacy 47.3 ml/min; Est GFR (African American) 66.4 ml/min; Est GFR (Non-African American) 57.3 ml/min
[2023-09-27] MEDS: dilTIAZem HCL 125 MG in DEXTROSE 5% 100 ML IV SCH ×2 (06:03)
[2023-09-27 06:11] LABS: Partial Thromboplastin Time > 139.0 Seconds (21.0-31.0)
[2023-09-27 08:26] LABS: Partial Thromboplastin Ratio 1.1; Partial Thromboplastin Time 32.3 Seconds (21.0-31.0)
[2023-09-27] MEDS: ASPIRIN 81 MG CHEW PO SCH (08:39)
[2023-09-27] MEDS: PANTOprazole 40 MG TAB PO SCH ×2 (08:40→20:40)
[2023-09-27] MEDS ORDERED: METOPROLOL TARTRATE 50 MG TAB PO SCH (14:00)
--- NOTE | 2023-09-27 14:17 | Cardiology Progress Note ---
Date of Service September 27, 2023 Assessment & Plan (1) Atrial flutter with rapid ventricular response: (2) HTN (hypertension): (3) Dyslipidemia: (4) Mitral regurgitation: (5) Mitral valve prolapse: (6) CAD (coronary artery disease): Plan 72 yo woman presenting with asymptomatic atrial flutter with RVR * Patient presented for Lumbar epidural steroid injection. * Patient was noted to be tachycardic * EKG - revealed aflutter - ventricular rate of 150 BPM - aflutter pattern * Referred to ED for potential admission * In ED - Diltiazem 15 mg IV x 2 - started on infusion - 10 mg/hr * Stopped Toprol * Started Lopressor 25 mg po Q6 * Chads Vasc 4 * Heparin Started Hx: * Nonobstructive CAD ([facility] - 12/2014) * MVP * ECHO (02/2022) - LVEF 60%, MR - MODERATE * Nuclear Stress Test (02/2022) - no evidence of ischemia * HTN * Hyperlipidemia * Pulmonary HTN Plans: * Could not pursue DCCV as we could not rule out FERMIN clot. * Increase metoprolol from 25mg to 50mg q6hr * Wean IV cardizem gtt to 5mg/hr then DC in 1-2 hrs * Stop IV heparin tonight at 8pm or 9pm, then give dose of Eliquis. Continue Eliquis BID. * Consider changing to toprol 200mg qday tomorrow if she tolerates the increased dose of metoprolol. I provided 55 min of care to the patient and discussed management of Atrial flutter. Admission and Anticipated Discharge Date Admission Date: September 25, 2023 Subjective Patient is seen and examined at bedside Denies any chest pain, palpitations, dizziness, nausea, vomiting, abdominal pain, dyspnea On IV heparin No other complaints Review of Systems Review of Systems: A comprehensive review of systems is otherwise negative unless noted above. Physical Exam Physical Exam: Overweight Glasses JVP 15 cmH20 S1S2 tachy CTA B with occasional crackles No lower extremity edema. Warm and perfusing Constitutional: well nourished; no acute distress Respiratory: no respiratory distress, no labored breathing and no retractions Auscultation: no crackles, no rales, no rhonchi and no wheezes Cardiovascular: Rate/Rhythm: regular rate and regular rhythm Heart Sounds: normal S1 and normal S2 Vessels: no JVD, no carotid bruit and + radial pulses abnormal Extremities: no edema Gastrointestinal (Abdomen): Inspection/Auscultation: normal bowel sounds; abdomen not distended Percussion/Palpation: abdomen soft; abdomen nontender, no guarding and abdomen not rigid Neurologic: CN's II-XI intact bilaterally and moves all extremities; no focal motor deficits Results & Data Vital Signs (Past 12 Hours) Vital Signs Temp Pulse Pulse Resp BP BP Pulse Ox 09/27/23 13:59 97/58 L 09/27/23 11:09 36.7 C 102 H 19 97/62 L 96 09/27/23 07:56 99 H 09/27/23 07:54 36.8 C 74 18 99/63 L 93 09/27/23 03:31 36.7 C 113 H 18 94/61 L 96 09/27/23 02:48 79 92/59 L O2 Del Method 09/27/23 13:59 09/27/23 11:09 Room Air 09/27/23 07:56 09/27/23 07:54 Room Air 09/27/23 03:31 Room Air 09/27/23 02:48 Results BMP Results: Sodium 134 mmol/L (136-145) L 09/27/23 Potassium 3.9 mmol/L (3.5-5.1) 09/27/23 Chloride 104 mmol/L (98-107) 09/27/23 Carbon Dioxide 22 mmol/L (21-32) 09/27/23 Anion Gap 8 (3-11) 09/27/23 BUN 13 mg/dl (6-23) 09/27/23 Creatinine 0.99 mg/dl (0.6-1.2) 09/27/23 Glucose 224 mg/dl (70-99(Fasting)) H 09/27/23 Results CBC w Diff Results: RBC 3.93 M/uL (4.20-5.40) L 09/27/23 WBC 7.52 K/ul (4.8-10.8) 09/27/23 Hgb 13.5 g/dl (12.0-16.0) 09/27/23 Hct 38.0 % (37.0-47.0) 09/27/23 MCV 96.7 fL (80.0-100.0) 09/27/23 MCH 34.4 pg (25.0-34.0) H 09/27/23 MCHC 35.5 g/dL (32.0-36.0) 09/27/23 RDW Standard Deviation 43.8 fL (36.4-46.3) 09/27/23 RDW Coefficient of Variation 12.3 % (11.5-14.5) 09/27/23 Plt Count 238 K/uL (130-400) 09/27/23 MPV 8.9 fL (9.4-12.4) L 09/27/23 Neutrophils (%) (Auto) 62.8 % 09/25/23 Lymphocytes (%) (Auto) 25.1 % 09/25/23 Monocytes # (Auto) 0.72 K/uL (0.11-0.59) H 09/25/23 Eosinophils # (Auto) 0.06 K/uL (0.00-0.50) 09/25/23 Immature Granulocyte % (Auto) 0.3 % 09/25/23 Neutrophils # (Auto) 4.45 K/uL (1.40-6.50) 09/25/23 Lymphocytes # (Auto) 1.78 K/uL (1.20-3.40) 09/25/23 Monocytes # (Auto) 0.72 K/uL (0.11-0.59) H 09/25/23 Eosinophils # (Auto) 0.06 K/uL (0.00-0.50) 09/25/23 Basophils # (Auto) 0.06 K/uL (0.00-0.20) 09/25/23 Immature Granulocyte # (Auto) 0.02 K/uL (0.01-0.20) 3 (2) HTN (hypertension) Hypertension type: primary hypertension Qualified Code(s): I10 - Essential (primary) hypertension (4) Mitral regurgitation Cardiac valve disease etiology: nonrheumatic Qualified Code(s): I34.0 - Nonrheumatic mitral (valve) insufficiency (6) CAD (coronary artery disease) Coronary Disease-Associated Artery/Lesion type: [place] artery [place] vs. transplanted heart: [place] heart Associated angina: without angina Qualified Code(s): I25.10 - Atherosclerotic heart disease of [place] coronary artery without angina pectoris
--- OUTSIDE RECORDS SUMMARY | 2023-09-27 15:33 | External Medical Summary | Summary of Care ---
Author Name Unknown Organization [facility] Address [address] [place] [address] Phone [phone] Care Team Providers Care Skydiving Instructor Name Role Phone Miladis Hightower MD Primary Care Provide r Encounter Details Date Type Department Care Team (Late st Contact Info) Description 09/25/2023 CardioDiagnostic Study Unspecified Department EKG Report Allergies Active Allergy Reactions Criticality Noted Date [...] as of this encounter (statuses as of 09/25/2023) Medications Medication Sig Dispensed Refills Start Date [...] as of this encounter (statuses as of 09/25/2023) Active Problems Problem Noted Date Diagnosed Date [...] as of this encounter (statuses as of 09/25/2023) Resolved Problems Problem Noted Date Diagnosed Date [...] as of this encounter (statuses as of 09/25/2023) Immunizations Name Administration Dates Next Due COVID-19 [...] on file documented as of this encounter Procedure Notes * Emmanuel Middleton, - 09/25/2023 8:25 AM ESTAssociated Order(s): EKG REPORT REASON FOR STUDY: CONCLUSIONS: Atrial flutter with variable A-V block Low voltage QRS, consider pulmonary disease, pericardial effusion, or normal variant Nonspecific ST and T wave abnormality Abnormal ECG When compared with ECG of 10-JAN-2022 13:14, Atrial flutter has replaced Sinus rhythm Vent. rate has increased BY 76 BPM Nonspecific T wave abnormality now evident in Lateral leads Ventricular Rate: 147 Atrial Rate: 312 QRS Duration: 54 QT/QTc: 314/491 ms P-R-T [place]: 0 : 50 : -83 degrees documented in this encounter Plan of Treatment Upcoming Encounters Date Type Department Care Team (Late st Contact Info) Description 10/21/2023 1:40 PM EST Office Visit Family Medicine [address] [place] [phone] Miladis Hightower MD [address] [place] [address] [place] [address] 04/09/2024 10:00 AM EDT Imaging Radiology [address] [facility] [place] [address] 04/09/2024 10:30 AM EDT Imaging Radiology [address] [place] [address] Scheduled Procedures Name Priority Associated Diagnoses Date/Ti [...] Not on filedocumented as of this encounter Procedures Procedure Name Priority Date/Time Associated Diagnosis Comments EKG REPORT 09/25/2023 8:25 AM EST documented in this encounter Results * EKG REPORT (09/25/2023 8:25 AM EST) 09/25/2023 8:25 AM EST Narrative Procedure Note Emmanuel Middleton, DO - 09/25/2023 8:25 AM EST REASON FOR STUDY: CONCLUSIONS: Atrial flutter with variable A-V block Low voltage QRS, consider pulmonary disease, pericardial effusion, ornormal variant Nonspecific ST and T wave abnormality Abnormal ECG When compared with ECG of 10-JAN-2022 13:14, Atrial flutter has replaced Sinus rhythm Vent. rate has increased BY 76 BPM Nonspecific T wave abnormality now evident in Lateral leads Ventricular Rate: 147 Atrial Rate: 312 QRS Duration: 54 QT/QTc: 314/491 ms P-R-T [place]: 0 : 50 : -83 degrees No Physician Data Unknown EKG documented in this encounter Advance Directives Healthcare Agents on File Name Relationship Healthcare Agent Relationshi p Communication Audrey Facer Friend Health Care Repr esentative (appointed verbally by patient or by statute hierarchy) Care Teams Skydiving Instructor Relationship Specialty Start Date End Date Miladis Hightower MD [address] [place] [address] [place] [id number] PCP - General Family Medicine 10/07/17 documented as of this encounter
[2023-09-27 15:46] LABS: Partial Thromboplastin Time 28.2 Seconds (21.0-31.0)
[2023-09-27] MEDS ORDERED: HEPARIN IV BOLUS 5,000 UNITS in SYRINGE 0 ML IV ONE (16:15)
--- NOTE | 2023-09-27 18:13 | Hospitalist Progress Note ---
Date of Service September 27, 2023 Assessment & Plan (1) Atrial flutter with rapid ventricular response: (2) Mitral valve prolapse: (3) Mitral regurgitation: Plan: Atrial flutter RVR Valvular heart disease --CXR:No acute chest disease. --ECHO: Rhythm is atrial flutter with rapid RVR. EF 55 to 60%. Left atrium is moderately dilated. Mitral valve leaflets appear thickened, but open well. Mild anterior mitral valve prolapse. Moderate mitral regurgitation. Trace tricuspid regurgitation. Doppler findings do not suggest pulmonary hypertension. Top normal IVC diameter with reduced inspiratory variation suggesting RA pressure 8 mmHg. --Normal TSH --Initially planned for cardioversion but could not be completed given poor visualization of left atrial appendage. Diltiazem drip discontinued Transition IV heparin to Eliquis Continue metoprolol as per cardiology Appreciate cardiology input Monitor and replace electrolytes as needed Needs follow-up with cardiology upon discharge (4) CAD (coronary artery disease): Plan: History of nonobstructive CAD per cardiac cath 2016 Continue ASA and beta-bipin. Not on statin due to history of intolerance (5) HTN (hypertension): Plan: Chronic, stable Continue metoprolol Sciatica Was planned for L5 S1 epidural steroid injection (6) Barretts esophagus: Plan: Continue PPI DVT Px On IV heparin>>Eliquis Admission and Anticipated Discharge Date Admission Date: September 25, 2023 Subjective Patient is seen and examined at bedside No new complaints Still has left-sided sciatic pain Denies any chest pain, palpitations, dizziness, nausea, vomiting, abdominal pain, dyspnea Converted to sinus today Discussed with cardiology today Review of Systems Review of Systems: All systems reviewed & are unremarkable except as noted in Subjective Physical Exam Physical Exam: Physical Exam: Vitals signs as noted above General Appearance:Obese, no apparent distress Head: normocephalic, Atraumatic Eyes: normal inspection, EOMI Neck: supple, Trachea midline Respiratory/Chest: Normal breath sounds, CTA, No accessory muscle use Cardiovascular: S1-S2, +murmur Abdomen/GI:Soft, Non tender, Bowel sounds present Extremities/Musculoskeletal:normal inspection, 1+ edema Neurologic/Psych:AAOX3, grossly no focal neurological deficits Skin: normal color, warm Results & Data Results & Data Vital Signs (Past 12 Hours) Vital Signs Temp Pulse Pulse Resp BP BP Pulse Ox 09/27/23 16:07 36.7 C 81 18 95/63 L 95 11/18/23 15:57 106/65 09/27/23 14:15 60 09/27/23 14:12 94 H 09/27/23 13:59 97/58 L 09/27/23 11:09 36.7 C 102 H 19 97/62 L 96 09/27/23 07:56 99 H 09/27/23 07:54 36.8 C 74 18 99/63 L 93 O2 Del Method 09/27/23 16:07 Room Air 09/27/23 15:57 09/27/23 14:15 09/27/23 14:12 09/27/23 13:59 09/27/23 11:09 Room Air 09/27/23 07:56 09/27/23 07:54 Room Air Laboratory Results Short CBC 09/27/23 Range/Units 04:44 WBC 7.52 (4.8-10.8) K/ul Hgb 13.5 (12.0-16.0) g/dl Hct 38.0 (37.0-47.0) % Plt Count 238 (130-400) K/uL BMP 09/27/23 04:44 Sodium 134 L Potassium 3.9 Chloride 104 Carbon Dioxide 22 BUN 13 Creatinine 0.99 Glucose 224 H Calcium 8.6 (3) Mitral regurgitation Cardiac valve disease etiology: nonrheumatic Qualified Code(s): I34.0 - Nonrheumatic mitral (valve) insufficiency (4) CAD (coronary artery disease) Coronary Disease-Associated Artery/Lesion type: [place] artery [place] vs. transplanted heart: [place] heart Associated angina: without angina Qualified Code(s): I25.10 - Atherosclerotic heart disease of [place] coronary artery without angina pectoris (5) HTN (hypertension) Hypertension type: primary hypertension Qualified Code(s): I10 - Essential (primary) hypertension
[2023-09-27] MEDS: HEPARIN SODIUM/DEXTROSE 25,000 UNITS/500 ML BAG IV SCH (19:21)
[2023-09-27] MEDS: APIXABAN 5 MG TABLET PO SCH (20:40)
[2023-09-27] MEDS: CETIRIZINE HCL 10 MG TABLET PO SCH (20:40)
[2023-09-27] MEDS: AMITRIPTYLINE HCL 50 MG TAB PO SCH (20:40)
[2023-09-27] MEDS ORDERED: HEPARIN STOP ORDER ONE (21:00)
[2023-09-28] MEDS: METOPROLOL TARTRATE 25 MG TAB PO SCH ×2 (04:29→09:52)
[2023-09-28 05:38] LABS: BUN Creatinine Ratio 18.7 (10-20); Creatinine Clr Calc Pharmacy 51.4 ml/min; Est GFR (African American) 73.6 ml/min; Est GFR (Non-African American) 63.5 ml/min; Magnesium 1.8 mg/dl (1.7-2.4)
[2023-09-28] MEDS: PANTOprazole 40 MG TAB PO SCH (08:22)
[2023-09-28] MEDS: APIXABAN 5 MG TABLET PO SCH (08:22)
[2023-09-28] MEDS: ASPIRIN 81 MG CHEW PO SCH (08:22)
--- NOTE | 2023-09-28 13:19 | Cardiology Progress Note ---
Date of Service September 28, 2023 Assessment & Plan (1) Atrial flutter with rapid ventricular response: (2) HTN (hypertension): (3) Dyslipidemia: (4) Mitral regurgitation: (5) Mitral valve prolapse: (6) CAD (coronary artery disease): Plan 72 yo woman presenting with asymptomatic atrial flutter with RVR * Patient presented for Lumbar epidural steroid injection. * Patient was noted to be tachycardic * EKG - revealed aflutter - ventricular rate of 150 BPM - aflutter pattern * Referred to ED for potential admission * In ED - Diltiazem 15 mg IV x 2 - started on infusion - 10 mg/hr * Stopped Toprol * Started Lopressor 25 mg po Q6 * Chads Vasc 4 * Heparin Started Hx: * Nonobstructive CAD ([place] - 12/2014) * MVP * ECHO (02/2022) - LVEF 60%, MR - MODERATE * Nuclear Stress Test (02/2022) - no evidence of ischemia * HTN * Hyperlipidemia * Pulmonary HTN Plans: * Could not pursue DCCV as we could not rule out FERMIN clot. * Change metoprolol tartrate 25mg q6hr to toprol 100mg qday starting tomorrow * Continue Eliquis BID. * Will plan for outpatient EP follow up for consideration of Atrial flutter ablation. I provided 55 min of care to the patient and discussed management of Atrial flutter. Admission and Anticipated Discharge Date Admission Date: September 25, 2023 Subjective Converted to NSR yesterday. No palpitations or chest pain. No N/V/ALICEA; afebrile. No PND or orthopnea. Review of Systems Review of Systems: A comprehensive review of systems is otherwise negative unless noted above. Physical Exam Physical Exam: GEN: AAOx3; NAD; Overweight HEENT: no JVD CV: RRR; S1+S2; no m/r/g PULM: CTA b/l; no W/R/R ABD: soft; NTND EXT: No lower extremity edema; Warm and perfusing Constitutional: well nourished; no acute distress Respiratory: no respiratory distress, no labored breathing and no retractions Auscultation: no crackles, no rales, no rhonchi and no wheezes Cardiovascular: Rate/Rhythm: regular rate and regular rhythm Heart Sounds: normal S1 and normal S2 Vessels: no JVD, no carotid bruit and + radial pulses abnormal Extremities: no edema Gastrointestinal (Abdomen): Inspection/Auscultation: normal bowel sounds; abdomen not distended Percussion/Palpation: abdomen soft; abdomen nontender, no guarding and abdomen not rigid Neurologic: CN's II-XI intact bilaterally and moves all extremities; no focal motor deficits Results & Data Vital Signs (Past 12 Hours) Vital Signs Temp Pulse Pulse Resp BP BP Pulse Ox 09/28/23 11:30 36.7 C 66 18 112/76 93 09/28/23 09:51 84 111/63 106/73 09/28/23 08:00 77 09/28/23 07:57 36.6 C 79 18 115/78 96 09/28/23 04:29 86 101/66 09/28/23 02:32 36.5 C 84 18 98/63 L 94 O2 Del Method 09/28/23 11:30 Room Air 09/28/23 09:51 09/28/23 08:00 09/28/23 07:57 Room Air 09/28/23 04:29 09/28/23 02:32 Room Air Results BMP Results: Sodium 136 mmol/L (136-145) 09/28/23 Potassium 4.0 mmol/L (3.5-5.1) 09/28/23 Chloride 105 mmol/L (98-107) 09/28/23 Carbon Dioxide 25 mmol/L (21-32) 09/28/23 Anion Gap 6 (3-11) 09/28/23 BUN 17 mg/dl (6-23) 09/28/23 Creatinine 0.91 mg/dl (0.6-1.2) 09/28/23 Glucose 130 mg/dl (70-99(Fasting)) H 09/28/23 Results Complete Blood Count Results: RBC 3.93 M/uL (4.20-5.40) L 09/27/23 WBC 7.52 K/ul (4.8-10.8) 09/27/23 Hgb 13.5 g/dl (12.0-16.0) 09/27/23 Hct 38.0 % (37.0-47.0) 09/27/23 Plt Count 238 K/uL (130-400) 09/27/23 (2) HTN (hypertension) Hypertension type: primary hypertension Qualified Code(s): I10 - Essential (primary) hypertension (4) Mitral regurgitation Cardiac valve disease etiology: nonrheumatic Qualified Code(s): I34.0 - Nonrheumatic mitral (valve) insufficiency (6) CAD (coronary artery disease) Coronary Disease-Associated Artery/Lesion type: [place] artery [place] vs. transplanted heart: [place] heart Associated angina: without angina Qualified Code(s): I25.10 - Atherosclerotic heart disease of [place] coronary artery without angina pectoris
--- NOTE | 2023-09-28 14:01 | Hospitalist Progress Note ---
Date of Service September 28, 2023 Assessment & Plan (1) Atrial flutter with rapid ventricular response: (2) Mitral valve prolapse: (3) Mitral regurgitation: Plan: Atrial flutter RVR Valvular heart disease --CXR:No acute chest disease. --ECHO: Rhythm is atrial flutter with rapid RVR. EF 55 to 60%. Left atrium is moderately dilated. Mitral valve leaflets appear thickened, but open well. Mild anterior mitral valve prolapse. Moderate mitral regurgitation. Trace tricuspid regurgitation. Doppler findings do not suggest pulmonary hypertension. Top normal IVC diameter with reduced inspiratory variation suggesting RA pressure 8 mmHg. --Normal TSH --Initially planned for cardioversion but could not be completed given poor visualization of left atrial appendage. Diltiazem drip discontinued Transition IV heparin to Eliquis Continue metoprolol as per cardiology Appreciate cardiology input Monitor and replace electrolytes as needed Plan to discharge on Toprol 100 mg daily Needs outpatient EP for possible ablation (4) CAD (coronary artery disease): Plan: History of nonobstructive CAD per cardiac cath 2016 Continue ASA and beta-bipin. Not on statin due to history of intolerance (5) HTN (hypertension): Plan: Chronic, stable Continue metoprolol Sciatica Was planned for L5 S1 epidural steroid injection (6) Barretts esophagus: Plan: Continue PPI DVT Px Eliquis Admission and Anticipated Discharge Date Admission Date: September 25, 2023 Subjective Patient is seen and examined at bedside No new complaints Remains in sinus, rate controlled chronic left-sided sciatic pain Denies any chest pain, palpitations, dizziness, nausea, vomiting, abdominal pain, dyspnea Discussed with cardiology today Plan to discharge home today Review of Systems Review of Systems: All systems reviewed & are unremarkable except as noted in Subjective Physical Exam Physical Exam: Physical Exam: Vitals signs as noted above General Appearance:Obese, no apparent distress Head: normocephalic, Atraumatic Eyes: normal inspection, EOMI Neck: supple, Trachea midline Respiratory/Chest: Normal breath sounds, CTA, No accessory muscle use Cardiovascular: S1-S2, +murmur Abdomen/GI:Soft, Non tender, Bowel sounds present Extremities/Musculoskeletal:normal inspection, 1+ edema Neurologic/Psych:AAOX3, grossly no focal neurological deficits Skin: normal color, warm Results & Data Results & Data Vital Signs (Past 12 Hours) Vital Signs Temp Pulse Pulse Resp BP BP Pulse Ox 09/28/23 11:30 36.7 C 66 18 112/76 93 09/28/23 09:51 84 111/63 106/73 09/28/23 08:00 77 09/28/23 07:57 36.6 C 79 18 115/78 96 09/28/23 04:29 86 101/66 09/28/23 02:32 36.5 C 84 18 98/63 L 94 O2 Del Method 09/28/23 11:30 Room Air 09/28/23 09:51 09/28/23 08:00 09/28/23 07:57 Room Air 09/28/23 04:29 09/28/23 02:32 Room Air Laboratory Results [facility] 09/28/23 04:34 Sodium 136 Potassium 4.0 Chloride 105 Carbon Dioxide 25 BUN 17 Creatinine 0.91 Glucose 130 H Calcium 9.0 (3) Mitral regurgitation Cardiac valve disease etiology: nonrheumatic Qualified Code(s): I34.0 - Nonrheumatic mitral (valve) insufficiency (4) CAD (coronary artery disease) Coronary Disease-Associated Artery/Lesion type: [place] artery [place] vs. transplanted heart: [place] heart Associated angina: without angina Qualified Code(s): I25.10 - Atherosclerotic heart disease of [place] coronary artery without angina pectoris (5) HTN (hypertension) Hypertension type: primary hypertension Qualified Code(s): I10 - Essential (primary) hypertension
--- NOTE | 2023-09-28 14:10 | Discharge Summary ---
Date of Service September 28, 2023 Admission HPI Per Admitting Provider 72-year-old female with PMH dyslipidemia, asthma, allergic rhinitis, HTN, mitral valve prolapse, IBS, Lundy's esophagus, GERD, fibromyalgia, and other problems listed below who presents to the ED from [facility] for evaluation of elevated heart rate. History obtained from the patient and review of outpatient PCP and cardiology records. Patient scheduled for L5-S1 epidural steroid injection. Upon presentation, patient was found to be significant tachycardic and was referred to the ED for further evaluation. Patient is asymptomatic. She denies chest pain, palpitations, shortness of breath. Reports ongoing low back pain with radiation into the left leg for the past few months. No lightheadedness, dizziness, diaphoresis, syncopal events. Reports chronic lower extremity edema for which she utilizes Lasix on a as needed basis. Typically takes Lasix only once every few months. Last dose was a few days ago. Lower extremity edema is at baseline. Denies orthopnea. No other recent illnesses, fevers, chills. She denies abdominal pain, nausea, vomiting, diarrhea. No urinary symptoms. In the ED, patient was found to be in atrial flutter with RVR. Patient received diltiazem 15 mg IV bolus x 2 and was placed on a drip. Patient was also given IVF. Labs and CXR unremarkable. Admission Exam Per Admitting Provider Constitutional: WD/WN, vitals as above no acute distress Eyes: PERRL, conjunctivae normal, anicteric sclerae ENMT: external ear and nose normal, oropharynx normal Respiratory: normal respiratory effort, lungs clear to auscultation Cardiovascular: Rate/Rhythm: regular rate and + irregularly irregular Vessels: normal peripheral pulses Extremities: + edema (Trace edema BLE) Gastrointestinal (Abdomen): normal bowel sounds, soft, nontender, no hepatosplenomegaly Musculoskeletal: no cyanosis or clubbing, extremities motor strength 5/5 Skin: no rashes, warm and dry Neurologic: PERRL, EOMI, accommodation nl, no face palsy, no dysarthria Psychiatric: A+Ox3, euthymic affect Principal Diagnosis Atrial flutter with rapid ventricular response Discharge Data Allergies Allergy/AdvReac Type Severity Reaction Status Date / Time erythromycin base Allergy Severe Gastrointestinal Unverified 09/25/23 11:12 Upset ezetimibe [From Zetia] Allergy Severe Leg Cramps Unverified 09/25/23 11:12 [id number] Reductase Allergy Severe Gastrointestinal Unverified 09/25/23 11:12 Inhibitor Upset Sulfa (Sulfonamide Allergy Severe Gastrointestinal Unverified 09/25/23 11:12 Antibiotics) Upset adhesive tape Allergy Unknown Unknown Unverified 09/25/23 11:12 omeprazole Allergy Unknown Unknown Unverified 09/25/23 11:12 orphenadrine Allergy Unknown Unconscious Unverified 09/25/23 11:12 gabapentin AdvReac Severe Vertigo/Diz Unverified 09/25/23 11:12 ziness NSAIDS (Non-Steroidal AdvReac Severe Rectal Unverified 09/25/23 11:12 Anti-Inflamma Bleeding Consultations 09/25/23 11:49 ED Decision to Admit Stat 09/25/23 12:59 Consult Cardiology Routine 09/26/23 11:39 Consult Anesthesiology Routine Procedures Performed Operation Date: 09/26/23 12:00 Actual Procedures s Echo Transesophageal - Homer Lindsey, p Echo Color Flow - Homer Lindsey, s Echo Doppler Complete - Homer Lindsey DO Ordered Studies Laboratory Results WBC 7.52 K/ul (4.8-10.8) 09/27/23 04:44 RBC 3.93 M/uL (4.20-5.40) L 09/27/23 04:44 Hgb 13.5 g/dl (12.0-16.0) 09/27/23 04:44 Hct 38.0 % (37.0-47.0) 09/27/23 04:44 MCV 96.7 fL (80.0-100.0) 09/27/23 04:44 MCH 34.4 pg (25.0-34.0) H 09/27/23 04:44 MCHC 35.5 g/dL (32.0-36.0) 09/27/23 04:44 RDW Std Deviation 43.8 fL (36.4-46.3) 09/27/23 04:44 RDW Coeff of Nicolas 12.3 % (11.5-14.5) 09/27/23 04:44 Plt Count 238 K/uL (130-400) 09/27/23 04:44 MPV 8.9 fL (9.4-12.4) L 09/27/23 04:44 Immature Gran % (Auto) 0.3 % 09/25/23 09:43 Neut % (Auto) 62.8 % 09/25/23 09:43 Lymph % (Auto) 25.1 % 09/25/23 09:43 [place] % (Auto) 10.2 % 09/25/23 09:43 Eos % (Auto) 0.8 % 09/25/23 09:43 Baso % (Auto) 0.8 % 09/25/23 09:43 Neut # (Auto) 4.45 K/uL (1.40-6.50) 09/25/23 09:43 Lymph # (Auto) 1.78 K/uL (1.20-3.40) 09/25/23 09:43 [place] # (Auto) 0.72 K/uL (0.11-0.59) H 09/25/23 09:43 Eos # (Auto) 0.06 K/uL (0.00-0.50) 09/25/23 09:43 Baso # (Auto) 0.06 K/uL (0.00-0.20) 09/25/23 09:43 Immature Gran # (Auto) 0.02 K/uL (0.01-0.20) 09/25/23 09:43 PT 11.9 Seconds (9.0-12.0) 09/25/23 10:30 INR 1.1 (0.9-1.1) 09/25/23 10:30 APTT 28.2 Seconds (21.0-31.0) 09/27/23 14:44 PTT Ratio 1.0 09/27/23 14:44 Sodium 136 mmol/L (136-145) 09/28/23 04:34 Potassium 4.0 mmol/L (3.5-5.1) 09/28/23 04:34 Chloride 105 mmol/L (98-107) 09/28/23 04:34 Carbon Dioxide 25 mmol/L (21-32) 09/28/23 04:34 Anion Gap 6 (3-11) 09/28/23 04:34 BUN 17 mg/dl (6-23) 09/28/23 04:34 Creatinine 0.91 mg/dl (0.6-1.2) 09/28/23 04:34 Est Cr Clr Drug Dosing 51.4 ml/min 09/28/23 04:34 Est GFR ( Amer) 73.6 ml/min 09/28/23 04:34 Est GFR (Non-Af Amer) 63.5 ml/min 09/28/23 04:34 BUN/Creatinine Ratio 18.7 (10-20) 09/28/23 04:34 Glucose 130 mg/dl (70-99(Fasting)) H 09/28/23 04:34 Calcium 9.0 mg/dl (8.6-10.3) 09/28/23 04:34 Magnesium 1.8 mg/dl (1.7-2.4) 09/28/23 04:34 Total Bilirubin 0.6 mg/dl (0.2-1.0) 09/25/23 09:43 AST 13 U/L (13-39) 09/25/23 09:43 ALT 12 U/L (7-52) 09/25/23 09:43 Alkaline Phosphatase 84 U/L (34-104) 09/25/23 09:43 Troponin I High Sens 7.1 pg/ml (0-14) 09/26/23 02:59 Total Protein 6.8 gm/dl (6.0-8.3) 09/25/23 09:43 Albumin 4.1 gm/dl (3.4-5.0) 09/25/23 09:43 Globulin 2.7 gm/dl (2.5-4.0) 09/25/23 09:43 Albumin/Globulin Ratio 1.5 (0.9-2) 09/25/23 09:43 Lipase 11 U/L (11-82) 09/25/23 09:43 TSH 1.366 uIu/ml (0.300-4.500) 09/25/23 09:43 Impressions Chest X-Ray 09/25/23 09:34 XR chest 1V portable CLINICAL HISTORY: Chest pain, nonspecific TECHNIQUE: Single frontal radiograph of the chest was obtained. Comparison: None available at the time of this dictation. FINDINGS: No lines and tubes are seen. The cardiomediastinal silhouette is normal. The lungs are clear. No evidence of pleural effusion or pneumothorax. IMPRESSION: No acute chest disease. ACT 112: Negative or not required by law. Electronically signed by: Allen Pitts M.D. 09/25/2023 10:23 AM Hospital Course (1) Atrial flutter with rapid ventricular response: (2) Mitral valve prolapse: (3) Mitral regurgitation: Atrial flutter RVR Valvular heart disease --CXR:No acute chest disease. --ECHO: Rhythm is atrial flutter with rapid RVR. EF 55 to 60%. Left atrium is moderately dilated. Mitral valve leaflets appear thickened, but open well. Mild anterior mitral valve prolapse. Moderate mitral regurgitation. Trace tricuspid regurgitation. Doppler findings do not suggest pulmonary hypertension. Top normal IVC diameter with reduced inspiratory variation suggesting RA pressure 8 mmHg. --Normal TSH --Initially planned for cardioversion but could not be completed given poor visualization of left atrial appendage. Diltiazem drip discontinued Transition IV heparin to Eliquis Continue metoprolol as per cardiology Appreciate cardiology input Monitor and replace electrolytes as needed Plan to discharge on Toprol 100 mg daily Needs outpatient EP for possible ablation (4) CAD (coronary artery disease): History of nonobstructive CAD per cardiac cath 2016 Continue ASA and beta-bipin. Not on statin due to history of intolerance (5) HTN (hypertension): Chronic, stable Continue metoprolol Sciatica Was planned for L5 S1 epidural steroid injection (6) Barretts esophagus: Continue PPI DVT Px Eliquis Total Time Total Time Spent Total Time Spent (In Minutes): 56 minutes Discharge Plan Discharge Items Patient Disposition: Home - Self-Care Reason For Visit: AFLUTTER RVR Discharge Diagnosis: Atrial flutter with rapid ventricular response Activity: Per Instructions section Exercise/Sports: Wait until after follow-up appointment Non-emergency contact: Primary Care Provider and Fur Drummer Call non-emergency contact if: you have any medication questions, your symptoms worsen, your pain is concerning for you and you have a fever Follow-up/Referrals: Miladis Hightower MD [Primary Care Provider] - Diet: Heart Healthy Addtl Attending Provider Instructions: Follow-up with your primary care physician in 1 week Follow-up with your director index / in 2-3 weeks Seek immediate medical attention if your symptoms reoccur or worsen Please take all medications as instructed on discharge list below. Please call if you have any questions or problems. You can reach a [facility] hospitalist on duty at [facility] 24 hours a day by calling [phone] Pending Studies at Discharge: No Stand-Alone Forms: My [facility], Smoking Cessation Medications and DC Order Prescriptions: New Eliquis 5 mg Tablet 5 mg PO BID Qty: 60 1RF metoprolol succinate 50 mg Tablet Extended Release 24 Hr 100 mg PO QAM Qty: 30 1RF Continued rabeprazole 20 mg tablet,delayed release (DR/EC) 20 mg PO BID acetaminophen 650 mg Tablet Extended Release 650 mg PO Q12H amitriptyline 25 mg tablet 50 mg PO HS meclizine 25 mg tablet 25 mg PO TID PRN (Reason: Dizziness Or Vertigo) aspirin 81 mg Tablet 81 mg PO QAM albuterol sulfate 90 mcg/actuation HFA aerosol inhaler 1 - 2 puff INHALATION QID PRN (Reason: wheezing/SOB) simethicone 80 mg Tablet,Chewable 80 mg PO BID PRN (Reason: Gastric Reflux) levocetirizine [Xyzal] 5 mg Tablet 5 mg PO HS fluticasone propion-salmeterol 250-50 mcg/dose blister with device 1 inh INHALATION BID PRN (Reason: Shortness Of Breath) furosemide 20 mg tablet 20 mg PO DAILY PRN (Reason: Edema) Discontinued metoprolol succinate 25 mg tablet extended release 24 hr 25 mg PO QAM Discharge Orders: Discharge Order (Routine); Ordered 09/28/23 Ordered By: Cuong Garcia/Other Patient Handouts: Apixaban Oral Tablet, Anticoagulants Admission Data Admit Date/Time: 09/25/23 12:14 Attending Provider: Cuong Fitch Admit Provider: Yusra Summers Primary Care Provider: Miladis Hightower. Other Providers: Aram Kim; Yusra Summers; Milvia Girard; Carol Giles; Patience Ku; Roberta Randle; Ezra Ho; Mike Kumar; Emmanuel Isaac; Amarjit Prado; Zara Prado; Gualberto Helm; Eulalia Hernandez; Toñito Wheatley; Guy Black; Tavares Duff; Je Melton; Ashtyn Spaulding; Ibrahima Sheriff A; Gabby Rosario; Bettina Sheriff; Sathish Douglas; Anna Washington; Rodrick Sparks; Dot Gallardo; Denice Cain; Harry Urias; Bing Yao A; Martha Butterfield A; Ingrid López; Susy Riley A; Derick Riley V; López Gonzalez; Carol Topete; Emanuel Crenshaw; Anahi Cowart; Derick Wagner; Aaron Spaulding; Allen Church; Kelsy Page; Nette Roberts; Derick Alanis; Jose Luis Rangel; Albina Gallego; Kwaku Bynum; Yaritza Gillette; Mae Rossi; Ryder Colón; Blu Melton; Maya Esqueda; Corwin Rosales; Tin Cutler; Jony Carrillo; Ezra Talamantes Jr; Denise Fernandez; Rama Noriega A.; Esperanza Cash; Harry Mora; Graciela Ward; Amarjit Agarawl; Kwaku Lara I.; Shawnee Reynolds S.; Rama Colindres A.; Lazaro Omer; Kaleb Stiles; Trey Zambrano; Robert Alcala V.; Christopher Doshi.; Itzel Mejia; Virginia Diaz; Tesha Martin; Radha Trujillo; Omayra Singh Other Interventions: Discharge Summary Assessment (RN) Last Done: 09/28/23 14:13
[2023-09-28] MEDS ORDERED: METOPROLOL TARTRATE 25 MG TAB PO ONE (14:47)
[2023-09-29] MEDS ORDERED: METOPROLOL SUCC 50MG EXT REL TAB PO SCH (09:00)
--- NOTE | 2023-09-29 19:22 | Electrocardiogram Report ---
Test Reason : Blood Pressure : / mmHG Vent. Rate : 072 BPM Atrial Rate : 288 BPM P-R Int : 000 ms QRS Dur : 072 ms QT Int : 400 ms P-R-T Axes : 246 030 000 degrees QTc Int : 438 ms Atrial flutter with 4:1 A-V conduction Nonspecific T wave abnormality Abnormal ECG When compared with ECG of 26-SEP-2023 06:34, No significant change Confirmed by Pipe Agustin ([id number]) on 09/29/2023 7:22:37 PM Referred By: REFERRED SELF Confirmed By:Pipe Agustin
== END 2023-09-28 15:43 | disposition home or self-care (01) | DRG 310 ==
LOC: ED 08:53 → EDINP 12:14 → SUATTDRO 12:14 → 4W 15:00

== ENCOUNTER 2025-07-03 08:48 | Observation (INO) ==
[2025-07-03] MEDS: HYDROmorphone INJ 0.5 MG/0.5 ML SYR IV PRN (09:22)
[2025-07-03] MEDS: ONDANSETRON INJ 2 MG/ML 2 ML VIAL IV STA (09:22)
[2025-07-03 09:29] LABS: Hematocrit (blood only) 35.9 % (37.0-47.0); Hemoglobin 11.9 g/dl (12.0-16.0); Immature Granulocytes # (auto) 0.01 K/uL (0.01-0.20); Immature Granulocytes % (auto) 0.1 %; Mean Corpuscular Hemoglobin 30.0 pg (25.0-34.0); Mean Corpuscular Volume 90.4 fL (80.0-100.0); Platelet Count 250 K/uL (130-400); RDW Standard Deviation 47.6 fL (36.4-46.3); Red Blood Count 3.97 M/uL (4.20-5.40); White Blood Count 7.64 K/ul (4.8-10.8)
[2025-07-03 09:47] LABS: Alanine Aminotransferase 7.0 U/L (7-52); Albumin Globulin Ratio 1.2 (0.9-2); Alkaline Phosphatase 93.0 U/L (34-104); Anion Gap 12.0 (3-11); Bilirubin,Total 0.4 mg/dl (0.2-1.0); Blood Urea Nitrogen 17.0 mg/dl (6-23); Calcium 9.2 mg/dl (8.6-10.3); Carbon Dioxide 21.0 mmol/L (21-32); Chloride 107.0 mmol/L (98-107); Creatinine Clr Calc Pharmacy 48.1 ml/min; Globulin 3.0 gm/dl (2.5-4.0); Glucose 157.0 mg/dl (70-99(Fasting)); Magnesium 1.6 mg/dl (1.7-2.4); Potassium 3.7 mmol/L (3.5-5.1); Sodium 140.0 mmol/L (136-145); Total Protein 6.6 gm/dl (6.0-8.3)
--- NOTE | 2025-07-03 09:55 | Emergency Department Note ---
Impression & Plan Acute left-sided back pain with sciatica, Acute UTI (urinary tract infection) ED Provider Note NAME: LEROY HAMILTON AGE: 74 SEX: Female INFORMANT: Patient ED PROVIDER(S): Blu Colon MD CHIEF COMPLAINT: Back pain PLAN: Disposition: Admitted Outpatient prescription management: none Referral: None MEDICAL DECISION MAKING: Patient presented because of back pain. She was also concerned about possible UTI. Her CBC and chemistries were unremarkable. Urinalysis did raise concern for infection. Patient was treated with IV Dilaudid and Zofran. She did feel better regarding her sciatic-like pain. X-ray imaging did not reveal any evidence of hardware placement or gross abnormality. Patient is not febrile. Patient was treated with a dose of IV Rocephin. She is having difficulty with this pain getting around and I believe would be best served as an inpatient. Patient in agreement. [facility] Patient was evaluated in the ER and admitted for further management. Care/management discussed with: quality assurance manager, hospitalist Level of care consideration(s): After review of the information above and other included data, I feel the patient requires escalation of care to admission Triage Nursing notes: reviewed and agree them. Vital Signs: reviewed and remarkable for no significant abnormalities Additional History obtained from: none Chronic Medical/Social Conditions affecting care: Chronic back pain, diabetes Prior/ Outside/ External records reviewed: none Differential Diagnosis: Musculoskeletal, disc herniation, fracture, metastatic disease, cord compression, discitis, sciatica, cauda equina, infection, aortic disease, renal colic, gastrointestinal, as well as other pathologies. Diagnostics, independently interpreted by me: ECG: none Cardiac Monitoring: Cardiac monitoring ordered by me: The patient was placed on continuous cardiac monitoring and observed. It revealed a normal sinus rhythm at 73 beats per minute without ectopy or evidence of dysrhythmia. Medical decision rules: none Imaging studies: X-ray ridging of the lumbar spine reveals no evidence of hardware displacement or fracture. I refer you to the EMR for further details. HPI: 74 year old Female arrives for evaluation of left-sided back pain. This started to worsen last night and is radiating down the left leg. Patient notes a history of back surgery in May at [employer]. Had similar pain at that time. Has been recovering at home. Notes having caregivers. Over the last 24 hours the leg got worse with regards to the radiation of pain down from the back. She was using oxycodone for pain control. Recently seen in the ER for leg edema and has been doing much better by her report. Edema has dropped significantly. The patient also notes the following associated symptoms, left leg feels somewhat weak. Patient denies any trauma. Current pain is rated as 7/10. Pt denies LOC, headache, fevers, chills, diaphoresis, neck pain, chest pain, breathing difficulties, nausea, vomiting, abdominal pain, melena, hematochezia, urinary symptoms, numbness, rash, or other complaints.. PAST MEDICAL HISTORY: See Below, a flutter, hypertension, chronic back pain PAST SURGICAL HISTORY: See Below, spinal fusion SOCIAL HISTORY: See Below, retired HOME MEDICATIONS: See Below ALLERGIES: See Below VITALS: See Below PHYSICAL EXAMINATION: GENERAL: Awake, alert, uncomfortable-appearing, in no distress HENT: Normocephalic, atraumatic. Oropharynx unremarkable. EYES: Normal conjunctiva. Sclera non-icteric. NECK: Inspection normal. Non-tender. Supple. No nuchal rigidity. FROM. No masses. RESPIRATORY: Clear to auscultation. No wheezes. No rales. Normal respiratory effort. CARDIAC: Bradycardic rate. Normal rhythm. No murmurs. No rubs. Extremities warm and well perfused. Pulses equal. No JVD. GI: Soft, non-distended. No tenderness to palpation. No rebound or guarding. No masses. RECTAL: Deferred. MUSCULOSKELETAL: Atraumatic. The back is symmetrical on inspection without obvious abnormality. There is no CVA tenderness to palpation. Left lower paraspinal lumbar muscle tenderness to palpation. No joint edema. LOWER EXTREMITIES: Calves are equal size bilaterally and non-tender. 1+ on the left and 2+ on the right edema. No discoloration. NEURO: Normal sensorium. No sensory or motor deficits noted except for some slight weakness noted in the left lower extremity. No saddle anesthesia. Positive SLR on the left.. SKIN: No rash or jaundice noted. PROCEDURES: none CRITICAL CARE: none OBSERVATION NOTE: none Past Med/Surg History Problem List (Updated 07/03/25 @ 20:01 by Blu Colon MD) Acute UTI (urinary tract infection) (Acute) Acute left-sided back pain with sciatica (Acute) Anemia (Acute) Hypokalemia (Acute) Leg swelling (Acute) Encounter for pre-operative examination Atrial flutter with rapid ventricular response (Acute) Atrial flutter with rapid ventricular response Barretts esophagus Fibromyalgia HTN (hypertension) Dyslipidemia Mitral regurgitation Mitral valve prolapse Bileaflet CAD (coronary artery disease) Nonobstructive per cardiac cath 2016 Surgical History History of partial hysterectomy History of cholecystectomy Social History Smoking Status: Former smoker Second Hand Exposure: No; Do You Dip or Chew Tobacco: No; Hx Alcohol Use: No Hx Substance Use: No Preferred Language: Sami Communication Ability: Effective Drapery Installer Required: No Beliefs That Will Affect Care: None Current Living Situation: Alone Current Living Situation Comment: the towers in [place] Other Information That Helps Us Care for You: No Feels Safe at Home: Yes Safety Concerns: Feels Safe At This Time Assistive Devices: None Allergies Allergies Allergy/AdvReac Type Severity Reaction Status Date / Time adhesive tape Allergy Unknown Unknown Verified 07/03/25 10:33 omeprazole Allergy Unknown Unknown Verified 07/03/25 10:33 erythromycin base AdvReac Severe Gastrointestinal Verified 07/03/25 10:33 Upset ezetimibe [From Zetia] AdvReac Severe Leg Cramps Verified 07/03/25 10:33 gabapentin AdvReac Severe Vertigo/Diz Verified 07/03/25 10:33 ziness NSAIDS (Non-Steroidal AdvReac Severe Rectal Verified 07/03/25 10:33 Anti-Inflamma Bleeding orphenadrine AdvReac Severe Unconscious Verified 07/03/25 10:33 [id number] Reductase AdvReac Severe Gastrointestinal Verified 07/03/25 10:33 Inhibitor Upset Sulfa (Sulfonamide AdvReac Severe Gastrointestinal Verified 07/03/25 10:33 Antibiotics) Upset Home Meds Home Medications Medication Instructions Recorded Confirmed acetaminophen 650 mg 650 mg PO Q12H 09/25/23 07/03/25 tablet,extended release fluticasone 250 mcg-salmeterol 50 1 inh inhalation BID PRN Shortness 09/25/23 07/03/25 mcg/dose blistr powdr for Of Breath inhalation furosemide 20 mg tablet 20 mg PO DAILY PRN Edema 09/25/23 07/03/25 levocetirizine 5 mg tablet (Xyzal) 5 mg PO HS 09/25/23 07/03/25 meclizine 25 mg tablet 25 mg PO TID PRN Dizziness Or 09/25/23 07/03/25 Vertigo rabeprazole 20 mg tablet,delayed 20 mg PO BID 09/25/23 07/03/25 release simethicone 80 mg chewable tablet 80 mg PO BID PRN Gastric Reflux 09/25/23 07/03/25 aspirin 81 mg tablet,delayed 81 mg PO DAILY 10/11/23 07/03/25 release metformin 500 mg tablet 500 mg PO BID 07/03/25 07/03/25 metoprolol succinate 100 mg 100 mg PO QAM 07/03/25 07/03/25 tablet,extended release 24 hr potassium chloride 20 mEq 20 meq PO DAILY PRN If taking lasix 07/03/25 07/03/25 tablet,extended release Previous Rx's Medication Instructions Recorded apixaban 5 mg tablet (Eliquis) 5 mg PO BID #60 tabs 09/28/23 Results & Data (ED) Vital Signs Vital Signs - 24 hr 07/03/25 08:57 07/03/25 09:07 07/03/25 09:44 Pulse Rate 58 L 52 L 60 Pulse Rate from SpO2 Sensor Respiratory Rate 14 14 Blood Pressure 149/69 H Blood Pressure Mean 95 Pulse Oximetry 98 99 Oxygen Delivery Method Room Air Room Air Sepsis Recent Fever Within 48 Hours No Sepsis New/Unexplained Change in Mental Status No Sepsis Action Taken by Nursing No Action Required 07/03/25 09:48 07/03/25 10:30 07/03/25 10:39 Pulse Rate 63 69 Pulse Rate from SpO2 Sensor 64 70 Respiratory Rate 12 23 Blood Pressure 133/79 125/58 L Blood Pressure Mean 97 70 Pulse Oximetry 98 98 Oxygen Delivery Method Room Air Room Air Sepsis Recent Fever Within 48 Hours Sepsis New/Unexplained Change in Mental Status Sepsis Action Taken by Nursing 07/03/25 11:00 07/03/25 11:00 07/03/25 12:33 Pulse Rate 50 L 53 L 72 Pulse Rate from SpO2 Sensor 51 L 73 Respiratory Rate 14 16 13 Blood Pressure 130/91 130/91 131/69 Blood Pressure Mean 105 105 89 Pulse Oximetry 98 98 97 Oxygen Delivery Method Room Air Room Air Room Air Sepsis Recent Fever Within 48 Hours Sepsis New/Unexplained Change in Mental Status Sepsis Action Taken by Nursing 07/03/25 13:03 07/03/25 13:31 07/03/25 13:36 Pulse Rate 51 L 52 L Pulse Rate from SpO2 Sensor 52 L 50 L Respiratory Rate 14 20 Blood Pressure 120/59 L 151/80 H Blood Pressure Mean 79 123 Pulse Oximetry 97 99 Oxygen Delivery Method Room Air Room Air Sepsis Recent Fever Within 48 Hours Sepsis New/Unexplained Change in Mental Status Sepsis Action Taken by Nursing Laboratory Data 07/03/25 09:19 07/03/25 09:19 Lab Results 07/03/25 07/03/25 Range/Units 09:19 13:20 WBC 7.64 (4.8-10.8) K/ul RBC 3.97 L (4.20-5.40) M/uL Hgb 11.9 L (12.0-16.0) g/dl Hct 35.9 L (37.0-47.0) % MCV 90.4 (80.0-100.0) fL MCH 30.0 (25.0-34.0) pg MCHC 33.1 (32.0-36.0) g/dL RDW Std Deviation 47.6 H (36.4-46.3) fL RDW Coeff of Nicolas 14.5 (11.5-14.5) % Plt Count 250 (130-400) K/uL MPV 9.4 (9.4-12.4) fL Immature Gran % (Auto) 0.1 % Neut % (Auto) 65.0 % Lymph % (Auto) 24.1 % Moore % (Auto) 7.5 % Eos % (Auto) 2.6 % Baso % (Auto) 0.7 % Neut # (Auto) 4.97 (1.40-6.50) K/uL Lymph # (Auto) 1.84 (1.20-3.40) K/uL Moore # (Auto) 0.57 (0.11-0.59) K/uL Eos # (Auto) 0.20 (0.00-0.50) K/uL Baso # (Auto) 0.05 (0.00-0.20) K/uL Immature Gran # (Auto) 0.01 (0.01-0.20) K/uL Sodium 140 (136-145) mmol/L Potassium 3.7 (3.5-5.1) mmol/L Chloride 107 (98-107) mmol/L Carbon Dioxide 21 (21-32) mmol/L Anion Gap 12 H (3-11) BUN 17 (6-23) mg/dl Creatinine 0.88 (0.6-1.2) mg/dl Est Cr Clr Drug Dosing 48.1 ml/min eGFR 69.35 BUN/Creatinine Ratio 19.3 (10-20) Glucose 157 H (70-99(Fasting)) mg/dl Calcium 9.2 (8.6-10.3) mg/dl Magnesium 1.6 L (1.7-2.4) mg/dl Total Bilirubin 0.4 (0.2-1.0) mg/dl AST 11 L (13-39) U/L ALT 7 (7-52) U/L Alkaline Phosphatase 93 (34-104) U/L Total Protein 6.6 (6.0-8.3) gm/dl Albumin 3.6 (3.4-5.0) gm/dl Globulin 3.0 (2.5-4.0) gm/dl Albumin/Globulin Ratio 1.2 (0.9-2) Urine Color Yellow Urine Appearance Clear (Clear) Urine pH 6.0 (4.5-7.5) Ur Specific Waggoner 1.010 (1.000-1.030) Urine Protein Negative (Negative) Urine Glucose (UA) Negative (Negative) Urine Ketones Negative (Negative) Urine Blood Negative (Negative) Urine Nitrite Positive A (Negative) Urine Bilirubin Negative (Negative) Urine Urobilinogen Negative (Negative) Ur Leukocyte Esterase Trace H (Negative) Urine WBC (Auto) 0-5 (0-5) /hpf Urine RBC (Auto) 0-2 (0-2) /hpf U Hyaline Cast (Auto) 0-2 (0-2) /lpf U Epithel Cells (Auto) 0-2 (0-2) /hpf Urine Bacteria (Auto) 4+ H (None Seen) Urine Comment Administered Medications Acetaminophen (Acetaminophen 325 Mg Tab) 650 mg PO Q12H KIMBERLY Stop: 08/02/25 17:59 Last Admin: 07/03/25 18:29 Dose: 650 mg Documented By: KS Discontinued Medications Hydromorphone HCl (Hydromorphone Inj 0.5 Mg/0.5 Ml Syr) 0.25 mg IV Q15M PRN PRN Reason: Pain Stop: 07/17/25 09:01 Last Admin: 07/03/25 11:56 Dose: 0.25 mg Documented By: Admin: 07/03/25 09:45 Dose: 0.25 mg Documented By: Admin: 07/03/25 09:22 Dose: 0.25 mg Documented By: SIDRA Ceftriaxone Sodium (Rocephin) 2,000 mg in 50 mls @ 100 mls/hr IV NOW STA Stop: 07/03/25 14:47 Last Infusion: 07/03/25 15:35 Dose: Infused Documented By: Admin: 07/03/25 14:53 Dose: 100 mls/hr Documented By: MARTHA Lidocaine (Lidocaine 5% 1 Patch) 1 patch TD NOW STA Stop: 07/03/25 17:57 Last Admin: 07/03/25 18:56 Dose: 1 patch Documented By: ANURAG Ondansetron HCl (Ondansetron Inj 2 Mg/Ml 2 Ml Vial) 4 mg IV NOW STA Stop: 07/03/25 09:03 Last Admin: 07/03/25 09:22 Dose: 4 mg Documented By: SIDRA Imaging Data Radiologist's Impression: Lumbar Spine X-Ray 07/03/25 09:06 LUMBAR SPINE 5 VIEWS CLINICAL HISTORY: Low back pain. Sciatica. FINDINGS: 5 views of the lumbar spine are correlated with MRI of lumbar spine dated 04/13/2025. The skeletal structures are osteopenic. There is no radiographic evidence of fracture or malalignment. Vertebral body height and alignment are maintained. There is postsurgical change of laminectomy and posterior fusion at L3-S1 with interpedicular screws in place. The orthopedic hardware appears intact. Moderate dextrocurvature is centered at L3-L4. Anterior and lateral marginal osteophytes are seen throughout. The transverse processes are grossly intact. There is moderate disc space narrowing at L1-L2 with endplate sclerosis. Moderate diffuse disc narrowing is also seen at L3-L4, L4-L5, and L5-S1. The transition bone grafting material is in place. No acute fracture seen involving the imaged bony pelvis. There is degenerative sclerosis of the sacroiliac joints. 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 There is a nonobstructed abdominal bowel gas pattern. Cholecystectomy clips are noted in the right upper quadrant. Phleboliths are seen in the pelvis. IMPRESSION: 1. No acute bony abnormality is identified involving the lumbar spine. 2. Postsurgical change, spondylotic change, and scoliosis as above. 3. Severe degenerative change and deformity of the left hip. ACT 112: Negative or not required by law. Electronically signed by: Kwaku Salgado M.D. 07/03/2025 1:21 PM Discharge Plan Visit Data Chief Complaint: Back Injury/Pain Stated Complaint: back pain ED Provider: Blu Colon Discharge Problem: Acute left-sided back pain with sciatica, Acute UTI (urinary tract infection) Patient Disposition: Admitted As Inpatient Condition: Good Discharge Instructions Interventions: ED Discharge Assessment Last Done: 07/03/25 17:07
--- NOTE | 2025-07-03 13:23 | XRay Report ---
LUMBAR SPINE 5 VIEWS CLINICAL HISTORY: Low back pain. Sciatica. FINDINGS: 5 views of the lumbar spine are correlated with MRI of lumbar spine dated 04/13/2025. The sk eletal structures are osteopenic. There is no radiographic evidence of fracture or malalignment. Vert ebral body height and alignment are maintained. There is postsurgical change of laminectomy and poste rior fusion at L3-S1 with interpedicular screws in place. The orthopedic hardware appears intact. Mod erate dextrocurvature is centered at L3-L4. Anterior and lateral marginal osteophytes are seen throug hout. The transverse processes are grossly intact. There is moderate disc space narrowing at L1-L2 wi th endplate sclerosis. Moderate diffuse disc narrowing is also seen at L3-L4, L4-L5, and L5-S1. The t ransition bone grafting material is in place. No acute fracture seen involving the imaged bony pelvis . There is degenerative sclerosis of the sacroiliac joints. 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 There is a nonobstructed abdominal bowel gas pattern. Cholecystectomy clips are noted in the right upper quadrant. Phlebolith s are seen in the pelvis. IMPRESSION: 1. No acute bony abnormality is identified involving the lumbar spine. 2. Postsurgical change, spondylotic change, and scoliosis as above. 3. Severe degenerative change and deformity of the left hip. ACT 112: Negative or not required by law. Electronically signed by: Kwaku Salgado M.D. 07/03/2025 1:21 PM
[2025-07-03 13:51] LABS: Appearance Urine Clear (Clear); Bacteria Urine Automated 4+ (None Seen); Cast Urine Automated 0-2 /lpf (0-2); Epithelial Cell Urine Auto 0-2 /hpf (0-2); Glucose Urine UA Negative (Negative); RBC Urine Automated 0-2 /hpf (0-2); WBC Urine Automated 0-5 /hpf (0-5)
[2025-07-03] MEDS: cefTRIAXone SODIUM 2,000 MG/50 ML BAG IV STA (14:53)
--- NOTE | 2025-07-03 15:10 | History & Physical Report ---
Date of Service July 03, 2025 Assessment & Plan (1) Acute left-sided back pain with sciatica: Plan 74F with PMH including pAfib on eliquis, HTN, HLD, IBS, fibro, mitral valve prolapse, lumbar stenosis, sciatica, chronic pain who presents with acute on chronic LBP #Acute on chronic LBP -Longstanding issue -S/p laminectomy and posterior fusion at L3-S1 in may at [facility] -Denies trauma or falls -X ray showing significant DJD throughout spine but no fractures. hardware is i ntact -No warning signs/symptoms to suggest caudal equina Plan -Pain control with tylenol, oxycodone and morphine prn -Lidocaine patch -PT/OT -May need placement given inability to care for self at home #UTI -UA dirty -No s/s pyelo Plan -Continue CTX -Follow urine cx #Afib/flutter -Rate controlled -Not on rate controlling agent -Continue eliquis #CAD -No chest pain -Continue home ASA -Intolerance to statins #Leg swelling -Chronic issue and at baseline per patient -Trace b/l LE edema -Denies history of CHF. RICARDO 2022 normal EF -Suspect venous stasis -Continue home lasix Greater than 70 minutes were spent discussing with ED, reviewing chart, labs, imaging, talking with patient, placing orders and writing documentation History of Present Illness Chief Complaint: Back and leg pain Primary Care Provider: Miladis Hightower MD Ms Breen is a pleasant 74F with PMH including pAfib on eliquis, HTN, HLD, IBS, fibro, mitral valve prolapse, lumbar stenosis, sciatica, chronic pain who presents with acute on chronic LBP. Long standing issue which started over 3 years ago. She recently had a lumbar spinal fusion at [facility] in may. She was feeling decent following surgery but still had minimal strength in her LLE and chronic pain. She lives alone but has caregivers. She mostly ambulates via wheelchair. She denies any recent falls or trauma. She was taking her prescribed oxycodone but ran out. She denies fecal or uinary incontinence. no Fevers/chills, headache. She also endorses dysuria starting 2 days ago. feels similar to prior UTIs. Denies flank pain, hematuria Patient denies CP, palpitations, SOB, dyspnea, abd pain, N/V/D Allergies Allergy/AdvReac Type Severity Reaction Status Date / Time adhesive tape Allergy Unknown Unknown Verified 07/03/25 10:33 omeprazole Allergy Unknown Unknown Verified 07/03/25 10:33 erythromycin base AdvReac Severe Gastrointestinal Verified 07/03/25 10:33 Upset ezetimibe [From Zetia] AdvReac Severe Leg Cramps Verified 07/03/25 10:33 gabapentin AdvReac Severe Vertigo/Diz Verified 07/03/25 10:33 ziness NSAIDS (Non-Steroidal AdvReac Severe Rectal Verified 07/03/25 10:33 Anti-Inflamma Bleeding orphenadrine AdvReac Severe Unconscious Verified 07/03/25 10:33 [id number] Reductase AdvReac Severe Gastrointestinal Verified 07/03/25 10:33 Inhibitor Upset Sulfa (Sulfonamide AdvReac Severe Gastrointestinal Verified 07/03/25 10:33 Antibiotics) Upset Home Medications Medication Instructions Recorded Confirmed Type acetaminophen 650 mg 650 mg PO Q12H 09/25/23 07/03/25 History tablet,extended release fluticasone 250 mcg-salmeterol 50 1 inh inhalation BID PRN Shortness 09/25/23 0 07/03/25 History mcg/dose blistr powdr for Of Breath inhalation furosemide 20 mg tablet 20 mg PO DAILY PRN Edema 09/25/23 07/03/25 History levocetirizine 5 mg tablet (Xyzal) 5 mg PO HS 09/25/23 07/03/25 History meclizine 25 mg tablet 25 mg PO TID PRN Dizziness Or 09/25/23 07/03/25 History Vertigo rabeprazole 20 mg tablet,delayed 20 mg PO BID 09/25/23 07/03/25 History release simethicone 80 mg chewable tablet 80 mg PO BID PRN Gastric Reflux 09/25/23 07/03/25 History apixaban 5 mg tablet (Eliquis) 5 mg PO BID #60 tabs 09/28/23 07/03/25 Rx aspirin 81 mg tablet,delayed 81 mg PO DAILY 10/11/23 07/03/25 History release metformin 500 mg tablet 500 mg PO BID 07/03/25 07/03/25 History metoprolol succinate 100 mg 100 mg PO QAM 07/03/25 07/03/25 History tablet,extended release 24 hr potassium chloride 20 mEq 20 meq PO DAILY PRN If taking lasix 07/03/25 07/03/25 History tablet,extended release Past Med/Surg History Problem List Acute left-sided back pain with sciatica (Acute) Anemia (Acute) Hypokalemia (Acute) Leg swelling (Acute) Encounter for pre-operative examination Atrial flutter with rapid ventricular response (Acute) Atrial flutter with rapid ventricular response Barretts esophagus Fibromyalgia HTN (hypertension) Dyslipidemia Mitral regurgitation Mitral valve prolapse Bileaflet CAD (coronary artery disease) Nonobstructive per cardiac cath 2016 Surgical History History of partial hysterectomy History of cholecystectomy Social History Smoking Status: Former smoker Second Hand Exposure: No; Do You Dip or Chew Tobacco: No; Hx Alcohol Use: No Hx Substance Use: No Preferred Language: Macedonian Communication Ability: Effective Partner Marketing Manager Required: No Beliefs That Will Affect Care: None Current Living Situation: Alone Current Living Situation Comment: the towers in [place] Feels Safe at Home: Yes Assistive Devices: None Review of Systems Review of Systems: 14 point ROS neg unless stated in HPI Physical Exam Physical Exam: Vitals and labs reviewed General: Elderly appearing NAD HEENT: EOMI, PERRLA Neck: Supple Cardiac: RRR no rubs gallops or murmurs Lungs: CTA no rhonchi wheezing or rales Abd: S NT ND BS positive : Deferred MSK: Limited active ROM in LLE due to pain. No obvious deformities Ext: trace b/l LE Edema cyanosis Skin: Warm, Dry Neuro: AOx3. no cranial nerve deficits. 3/5 strength in LLE. 4/5 plantarflexion in L foot. moving all toes Psych: Normal Mood Results & Data Results & Data Vital Signs (Past 12 Hours) Vital Signs Pulse Resp BP Pulse Ox O2 Del Method 07/03/25 13:36 52 L 20 99 Room Air 07/03/25 13:31 151/80 H 07/03/25 13:03 51 L 14 120/59 L 97 Room Air 07/03/25 12:33 72 13 131/69 97 Room Air 07/03/25 11:00 53 L 16 130/91 98 Room Air 07/03/25 11:00 50 L 14 130/91 98 Room Air 07/03/25 10:39 69 23 98 Room Air 07/03/25 10:30 125/58 L 07/03/25 09:48 63 12 133/79 98 Room Air 07/03/25 09:44 60 14 99 Room Air 07/03/25 09:07 52 L 07/03/25 08:57 58 L 14 149/69 H 98 Room Air Laboratory Results Abnormal lab results 07/03/25 07/03/25 Range/Units 09:19 13:20 RBC 3.97 L (4.20-5.40) M/uL Hgb 11.9 L (12.0-16.0) g/dl Hct 35.9 L (37.0-47.0) % RDW Std Deviation 47.6 H (36.4-46.3) fL Anion Gap 12 H (3-11) Glucose 157 H (70-99(Fasting)) mg/dl Magnesium 1.6 L (1.7-2.4) mg/dl AST 11 L (13-39) U/L Urine Nitrite Positive A (Negative) Ur Leukocyte Esterase Trace H (Negative) Urine Bacteria (Auto) 4+ H (None Seen) Diagnostic Findings Lumbar Spine X-Ray 07/03/25 09:06 LUMBAR SPINE 5 VIEWS CLINICAL HISTORY: Low back pain. Sciatica. FINDINGS: 5 views of the lumbar spine are correlated with MRI of lumbar spine dated 04/13/2025. The skeletal structures are osteopenic. There is no radiographic evidence of fracture or malalignment. Vertebral body height and alignment are maintained. There is postsurgical change of laminectomy and posterior fusion at L3-S1 with interpedicular screws in place. The orthopedic hardware appears intact. Moderate dextrocurvature is centered at L3-L4. Anterior and lateral marginal osteophytes are seen throughout. The transverse processes are grossly intact. There is moderate disc space narrowing at L1-L2 with endplate sclerosis. Moderate diffuse disc narrowing is also seen at L3-L4, L4-L5, and L5-S1. The transition bone grafting material is in place. No acute fracture seen involving the imaged bony pelvis. There is degenerative sclerosis of the sacroiliac joints. 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 There is a nonobstructed abdominal bowel gas pattern. Cholecystectomy clips are noted in the right upper quadrant. Phleboliths are seen in the pelvis. IMPRESSION: 1. No acute bony abnormality is identified involving the lumbar spine. 2. Postsurgical change, spondylotic change, and scoliosis as above. 3. Severe degenerative change and deformity of the left hip. ACT 112: Negative or not required by law. Electronically signed by: Kwaku Salgado M.D. 07/03/2025 1:21 PM Code Status & VTE Plan Code Status full
[2025-07-03] MEDS ORDERED: ONDANSETRON INJ 2 MG/ML 2 ML VIAL IV PRN (17:56)
[2025-07-03] MEDS ORDERED: MECLIZINE HCL 25 MG TAB PO PRN (17:56)
[2025-07-03] MEDS ORDERED: SIMETHICONE 80 MG CHEW PO PRN (17:56)
[2025-07-03] MEDS ORDERED: FUROSEMIDE 20 MG TAB PO PRN (17:56)
[2025-07-03] MEDS ORDERED: FLUTICASONE/VILANTEROL 100/25MCG 14 PUFFS/INHALER INH PRN (17:56)
[2025-07-03] MEDS ORDERED: GLUCOSE 40% GEL 15 GM TUBE PO PRN (18:04)
[2025-07-03] MEDS ORDERED: GLUCOSE 10 TAB/TUBE PO PRN (18:04)
[2025-07-03] MEDS ORDERED: GLUCAGON FOR INJ 1 MG VIAL SQ PRN (18:04)
[2025-07-03] MEDS ORDERED: DEXTROSE 50% 50 ML SYRINGE IV PRN (18:04)
[2025-07-03] MEDS ORDERED: CARBOHYDRATES FOR HYPOGLYCEMIA PO PRN (18:04)
[2025-07-03] MEDS: ACETAMINOPHEN 325 MG TAB PO SCH (18:29)
[2025-07-03] MEDS: LIDOCAINE 5% 1 PATCH TD STA (18:56)
[2025-07-03] MEDS: APIXABAN 5 MG TABLET PO SCH (20:19)
[2025-07-03] MEDS: INSULIN ASPART PER UNIT CHARGE SC SCH (20:24)
[2025-07-03] MEDS: REMOVE LIDODERM PATCH SCH (21:10)
[2025-07-03] MEDS ORDERED: Nursing to Pharmacy Communication SCH (21:15)
[2025-07-03] MEDS: MoRPHine SULFATE 2 MG/ML CARP IV PRN (22:46)
[2025-07-04] MEDS: METOPROLOL SUCC 50MG EXT REL TAB PO SCH (09:08)
[2025-07-04] MEDS: ASPIRIN 81 MG ECTAB PO SCH (09:08)
[2025-07-04] MEDS: REMOVE LIDODERM PATCH ONE (09:10)
[2025-07-04] MEDS: cefTRIAXone SODIUM 1,000 MG/50 ML BAG IV SCH (09:32)
--- NOTE | 2025-07-04 12:03 | Hospitalist Progress Note ---
Date of Service July 04, 2025 Assessment & Plan (1) Acute left-sided back pain with sciatica: Plan 74F with PMH including pAfib on eliquis, HTN, HLD, IBS, fibro, mitral valve prolapse, lumbar stenosis, sciatica, chronic pain who presents with acute on chronic LBP. She is being managed for the following: #Acute on chronic LBP -Longstanding issue -S/p laminectomy and posterior fusion at L3-S1 in may at [facility] -Denies trauma or falls -X ray showing significant DJD throughout spine but no fractures. hardware is intact -No warning signs/symptoms to suggest caudal equina Or infection. Plan -Pain control with tylenol, oxycodone and morphine prn -Lidocaine patch -PT/OT -May need placement given inability to care for self at home #Complicated UTI -UA dirty -No s/s pyelo Plan -Continue CTX 07/03 -Follow urine cx #Afib/flutter -Rate controlled. Not on rate controlling agent. Continue eliquis #CAD-No chest pain. Continue home ASA. Intolerance to statins #Leg swelling -Chronic issue and at baseline per patient -Trace b/l LE edema at presentation. -Denies history of CHF. RICARDO 2022 normal EF -Suspect venous stasis -Continue home lasix PT/OT, CM to assist w/ dc plan Admission and Anticipated Discharge Date Admission Date: July 03, 2025 Subjective Patient was seen and examined at bedside. Patient was lying in bed, on room air, NAD, resting comfortably. Patient reports improving back pain, reports eating okay, moving bowels okay. Patient reports some pain and burning with passing urine. Physical Exam Physical Exam: General: Elderly appearing NAD HEENT: EOMI, PERRLA Neck: Supple Cardiac: RRR no rubs gallops or murmurs Lungs: CTA no rhonchi wheezing or rales Abd: S NT ND BS positive : Deferred MSK: Limited active ROM in LLE due to pain. No obvious deformities Ext: trace b/l LE Edema cyanosis Skin: Warm, Dry Neuro: AOx3. no cranial nerve deficits. Moves extremities. Psych: Normal Mood Results & Data Results & Data Vital Signs (Past 12 Hours) Vital Signs Temp Pulse Resp BP Pulse Ox O2 Del Method 07/04/25 07:27 36.4 C L 69 13 117/72 98 Room Air
[2025-07-04] MEDS: LIDOCAINE 5% 1 PATCH TD SCH ×2 (15:50→19:44)
[2025-07-04] MEDS ORDERED: REMOVE LIDODERM PATCH SCH (21:00)
[2025-07-05 07:40] LABS: Hematocrit (blood only) 31.4 % (37.0-47.0); Hemoglobin 10.7 g/dl (12.0-16.0); Mean Corpuscular Hemoglobin 30.8 pg (25.0-34.0); Mean Corpuscular Volume 90.5 fL (80.0-100.0); Platelet Count 254 K/uL (130-400); RDW Standard Deviation 46.3 fL (36.4-46.3); Red Blood Count 3.47 M/uL (4.20-5.40); White Blood Count 5.89 K/ul (4.8-10.8)
[2025-07-05 07:56] LABS: Anion Gap 7.0 (3-11); Blood Urea Nitrogen 11.0 mg/dl (6-23); Calcium 8.7 mg/dl (8.6-10.3); Carbon Dioxide 26.0 mmol/L (21-32); Chloride 106.0 mmol/L (98-107); Creatinine Clr Calc Pharmacy 48.5 ml/min; Glucose 112.0 mg/dl (70-99(Fasting)); Magnesium 1.6 mg/dl (1.7-2.4); Potassium 3.6 mmol/L (3.5-5.1); Sodium 139.0 mmol/L (136-145)
[2025-07-05] MEDS: REMOVE LIDODERM PATCH SCH (08:35)
[2025-07-05] MEDS ORDERED: REMOVE LIDODERM PATCH SCH (09:00)
[2025-07-05 10:04] VITALS: O2SAT 96
[2025-07-05] MEDS: MAGNESIUM SULFATE / D5W 1 GM/100 ML BAG IV SCH (10:08)
[2025-07-05] MEDS ORDERED: POTASSIUM CHLORIDE CRTAB 20 MEQ TABCR PO PRN (13:56)
--- NOTE | 2025-07-05 13:59 | Hospitalist Progress Note ---
Date of Service July 05, 2025 Assessment & Plan (1) Acute left-sided back pain with sciatica: Plan 74F with PMH including pAfib on eliquis, HTN, HLD, IBS, fibro, mitral valve prolapse, lumbar stenosis, sciatica, chronic pain who presents with acute on chronic LBP. She is being managed for the following: #Acute on chronic LBP -Longstanding issue -S/p laminectomy and posterior fusion at L3-S1 in may at [place] -Denies trauma or falls -X ray showing significant DJD throughout spine but no fractures. hardware is intact -No warning signs/symptoms to suggest caudal equina Or infection. Plan -Pain control with tylenol, oxycodone and morphine prn -Lidocaine patch -PT/OT -May need placement given inability to care for self at home #Complicated UTI -UA dirty -No s/s pyelo Plan -Continue CTX 07/03 #Afib/flutter -Rate controlled. Not on rate controlling agent. Continue eliquis #CAD-No chest pain. Continue home ASA. Intolerance to statins #Leg swelling -Chronic issue and at baseline per patient -Trace b/l LE edema at presentation. -Denies history of CHF. RICARDO 2022 normal EF -Suspect venous stasis -Continue home lasix PT/OT, CM to assist w/ dc plan, stable for dc to rehab. Admission and Anticipated Discharge Date Admission Date: July 03, 2025 Subjective Patient was seen and examined at bedside. Patient was lying in bed, on room air, NAD, resting comfortably. Patient reports improving back pain, reports eating okay, moving bowels okay. Physical Exam Physical Exam: General: Elderly appearing NAD HEENT: EOMI, PERRLA Neck: Supple Cardiac: RRR no rubs gallops or murmurs Lungs: CTA no rhonchi wheezing or rales Abd: S NT ND BS positive : Deferred MSK: Limited active ROM in LLE due to pain. No obvious deformities Ext: trace b/l LE Edema cyanosis Skin: Warm, Dry Neuro: AOx3. no cranial nerve deficits. Moves extremities. Psych: Normal Mood Results & Data Results & Data Vital Signs (Past 12 Hours) Vital Signs Temp Pulse Resp BP BP Pulse Ox O2 Del Method 07/05/25 10:04 58 L 120/71 96 Room Air 07/05/25 08:25 70 18 104/63 95 Room Air 07/05/25 07:43 36.7 C 62 16 109/70 96 Room Air
[2025-07-05 15:27] VITALS: BP 99/59; PULSE 62; RESP 16; TEMP 97.9
--- NOTE | 2025-07-05 15:57 | Discharge Summary ---
Date of Service July 05, 2025 Admission HPI Per Admitting Provider Ms Breen is a pleasant 74F with PMH including pAfib on eliquis, HTN, HLD, IBS, fibro, mitral valve prolapse, lumbar stenosis, sciatica, chronic pain who presents with acute on chronic LBP. Long standing issue which started over 3 years ago. She recently had a lumbar spinal fusion at [place] in may. She was feeling decent following surgery but still had minimal strength in her LLE and chronic pain. She lives alone but has caregivers. She mostly ambulates via wheelchair. She denies any recent falls or trauma. She was taking her prescribed oxycodone but ran out. She denies fecal or uinary incontinence. no Fevers /chills, headache. She also endorses dysuria starting 2 days ago. feels similar to prior UTIs. Denies flank pain, hematuria Patient denies CP, palpitations, SOB, dyspnea, abd pain, N/V/D Admission Exam Per Admitting Provider Vitals and labs reviewed General: Elderly appearing NAD HEENT: EOMI, PERRLA Neck: Supple Cardiac: RRR no rubs gallops or murmurs Lungs: CTA no rhonchi wheezing or rales Abd: S NT ND BS positive : Deferred MSK: Limited active ROM in LLE due to pain. No obvious deformities Ext: trace b/l LE Edema cyanosis Skin: Warm, Dry Neuro: AOx3. no cranial nerve deficits. 3/5 strength in LLE. 4/5 plantarflexion in L foot. moving all toes Psych: Normal Mood Principal Diagnosis Acute on chronic LBP Complicated UTI Discharge Exam General: Elderly appearing NAD HEENT: EOMI, PERRLA Neck: Supple Cardiac: RRR no rubs gallops or murmurs Lungs: CTA no rhonchi wheezing or rales Abd: S NT ND BS positive : Deferred MSK: Limited active ROM in LLE due to pain - improving. No obvious deformities Ext: trace b/l LE Edema cyanosis Skin: Warm, Dry Neuro: AOx3. no cranial nerve deficits. Moves extremities. Psych: Normal Mood Discharge Data Allergies Allergy/AdvReac Type Severity Reaction Status Date / Time adhesive tape Allergy Unknown Unknown Verified 07/03/25 10:33 omeprazole Allergy Unknown Unknown Verified 07/03/25 10:33 erythromycin base AdvReac Severe Gastrointestinal Verified 07/03/25 10:33 Upset ezetimibe [From Zetia] AdvReac Severe Leg Cramps Verified 07/03/25 10:33 gabapentin AdvReac Severe Vertigo/Diz Verified 07/03/25 10:33 ziness NSAIDS (Non-Steroidal AdvReac Severe Rectal Verified 07/03/25 10:33 Anti-Inflamma Bleeding orphenadrine AdvReac Severe Unconscious Verified 07/03/25 10:33 Ixdtwro-[id number]-[id number] Reductase AdvReac Severe Gastrointestinal Verified 07/03/25 10:33 Inhibitor Upset Sulfa (Sulfonamide AdvReac Severe Gastrointestinal Verified 07/03/25 10:33 Antibiotics) Upset Consultations 07/03/25 14:57 ED Decision to Admit Stat Hospital Course (1) Acute left-sided back pain with sciatica: Plan 74F with PMH including pAfib on eliquis, HTN, HLD, IBS, fibro, mitral valve prolapse, lumbar stenosis, sciatica, chronic pain who presents with acute on chronic LBP. She was managed for the following: #Acute on chronic LBP -Longstanding issue -S/p laminectomy and posterior fusion at L3-S1 in may at [place] -Denies trauma or falls -X ray showing significant DJD throughout spine but no fractures. hardware is intact -No warning signs/symptoms to suggest caudal equina Or infection. Plan -Pain control with tylenol, oxycodone and morphine prn -Lidocaine patch -PT/OT recs is rehab, pt declining, wants to go home, dc w/ HH and 24 hr care. #Complicated UTI -UA dirty -No s/s pyelo Plan -Continue CTX 07/03, to po atb to complete 7 d course. #Afib/flutter -Rate controlled. Not on rate controlling agent. Continue eliquis #CAD-No chest pain. Continue home ASA. Intolerance to statins #Leg swelling -Chronic issue and at baseline per patient -Trace b/l LE edema at presentation. -Denies history of CHF. RICARDO 2022 normal EF -Suspect venous stasis -Continue home lasix PT/OT, CM to assist w/ dc plan, stable for dc to rehab. Discussed with casey saw operator, patient declining rehab. Patient is being discharged to home with 24- hour care and home health with following instructions at the point of discharge: Follow-up with your primary care physician within a week time and likely you will need labs CBC/CMP/magnesium/phosphorus. For your low back pain, continue with your physical therapy at home. Continue to manage your pain with your [id number] Tylenol and 4% lidocaine patch per door puller's recommendation. You will be discharged with few days worth of oxycodone, for ongoing needs/prescription recommend that you follow-up with your primary care office. For your UTI you will be discharged on antibiotic to complete 7 days course. Take your medications as prescribed. Please make sure that you are able to get your medications today by calling your pharmacy before you leave the hospital so that your treatment continuity is not broken. Home Health Attestation I certify that this patient is under my care and that I, or a physicians front end assistant working with me, had a face to-face encounter that meets the home health eghj-al-[id number] encounter requirements with this patient. The encounter with the patient was in whole, or in part, for the following medical condition, which is the primary reason for home health care (list medical condition): I certify that, based on my findings, the following services are medically necessary home health services: My clinical findings support the need for the above services because: Further, I certify that my clinical findings support that this patient is homebound (i.e. absences from home require considerable and taxing effort and are for medical reasons or [employer] services or infrequently or of short duration when for other reasons) because: Certification for Home Health Services: Based on the above findings, I certify that this patient is confined to the home and needs intermittent alf care, physical therapy and/or speech therapy or continues to need occupational therapy. The patient is under my care, and I have initiated the establishment of the plan of care. This patient will be followed by a physician who will periodically review the plan of care. Total Time Total Time Spent Total Time Spent (In Minutes): 45 Discharge Plan Discharge Items Patient Disposition: Home - Home Health Services Reason For Visit: BACK PAIN Discharge Diagnosis: Acute on chronic LBP Complicated UTI Condition on Discharge: Good Activity: As commented below Activity Comment: Continue with physical therapy at home Non-emergency contact: Primary Care Provider Call non-emergency contact if: you have any medication questions and your symptoms worsen Follow-up/Referrals: Miladis Hightower MD [Primary Care Provider] - Diet: Carb Consistent or DM2 and Heart Healthy Addtl Attending Provider Instructions: Follow-up with your primary care physician within a week time and likely you will need labs CBC/CMP/magnesium/phosphorus. For your low back pain, continue with your physical therapy at home. Continue to manage your pain with your [id number] Tylenol and 4% lidocaine patch per door puller's recommendation. You will be discharged with few days worth of oxycodone, for ongoing needs/prescription recommend that you follow-up with your primary care office. For your UTI you will be discharged on antibiotic to complete 7 days course. Take your medications as prescribed. Please make sure that you are able to get your medications today by calling your pharmacy before you leave the hospital so that your treatment continuity is not broken. Pending Studies at Discharge: No Stand-Alone Forms: My [facility] [employer], Smoking Cessation Medications and DC Order Prescriptions: New oxycodone 5 mg Tablet 5 mg PO Q6H PRN (Reason: severe pain (scale score 7-10)) 5 Days Qty: 20 0RF cefdinir 300 mg capsule 300 mg PO BID 4 Days Qty: 8 0RF Probiotic 3 billion cell capsule 3,000 mmu cells PO DAILY 7 Days Qty: 7 0RF Rx Instructions: administer with a meal Continued rabeprazole 20 mg tablet,delayed release (DR/EC) 20 mg PO BID acetaminophen 650 mg Tablet Extended Release 650 mg PO Q12H meclizine 25 mg tablet 25 mg PO TID PRN (Reason: Dizziness Or Vertigo) simethicone 80 mg Tablet,Chewable 80 mg PO BID PRN (Reason: Gastric Reflux) levocetirizine [Xyzal] 5 mg Tablet 5 mg PO HS fluticasone propion-salmeterol 250-50 mcg/dose blister with device 1 inh INHALATION BID PRN (Reason: Shortness Of Breath) furosemide 20 mg tablet 20 mg PO DAILY PRN (Reason: Edema) Eliquis 5 mg Tablet 5 mg PO BID Qty: 60 1RF aspirin 81 mg Tablet,Delayed Release (Dr/Ec) 81 mg PO DAILY metformin 500 mg tablet 500 mg PO BID metoprolol succinate 100 mg tablet extended release 24 hr 100 mg PO QAM potassium chloride 20 mEq tablet extended release 20 meq PO DAILY PRN (Reason: If taking lasix) Admission Data Admit Date/Time: 07/03/25 14:53 Attending Provider: Tessy Rodriguez Admit Provider: Hakeem Ronquillo Primary Care Provider: Miladis Hightower Other Providers: Hakeem Ronquillo; [facility]
== END 2025-07-05 17:45 | disposition home health service (06) ==
LOC: 3W 08:48 → ED 08:48 → SUATTDRO 14:53 → 3W 17:07